=== PATIENT | female | born 1990 | race Two or more races ===

== ENCOUNTER 2024-04-22 15:40 | Emergency (ER) | payer MEDICAID, OTHER ==
[~2024-04-22] VITALS: Ht 175.3 cm; Wt 65.9 kg
[2024-04-22 19:30] VITALS: PULSE 82; RESP 18; O2SAT 93
[2024-04-22 19:45] VITALS: BP 95/53; PULSE 94; RESP 16; O2SAT 99
== END 2024-04-22 19:46 | disposition home or self-care (01) ==
LOC: ER 15:40 → EDBD 15:40 → ER 19:46
DX: T67.5XXA Heat exhaustion, unspecified, initial encounter (principal); J45.909 Unspecified asthma, uncomplicated; I10 Essential (primary) hypertension; Z95.0 Presence of cardiac pacemaker; Z86.73 Personal history of transient ischemic attack (TIA), and cerebral infarction without residual deficits; Z87.891 Personal history of nicotine dependence; X30.XXXA Exposure to excessive natural heat, initial encounter; Y93.89 Activity, other specified; Y92.099 Unspecified place in other non-institutional residence as the place of occurrence of the external cause; Y99.8 Other external cause status
CPT/HCPCS: 93005

== ENCOUNTER 2024-11-12 12:22 | Emergency (ER) | payer MEDICAID ==
[~2024-11-12] VITALS: Ht 175.3 cm; Wt 94.2 kg
[2024-11-12 13:00] VITALS: BP 115/68; PULSE 89; RESP 18; TEMP 97.8; O2SAT 97
[2024-11-12] MEDS ORDERED: AMOX875T3 PO (13:03)
[2024-11-12] MEDS ORDERED: PRED20TA2 PO (13:03)
--- NOTE | 2024-11-12 13:05 | ED.PDOC ---
Eye-HPI HPI Comments A 34 YEAR OLD FEMALE PRESENTS TO THE ED WITH COMPLAINT OF SINUS PRESSURE AND CONGESTION. PATIENT STATES SHE HAS BEEN EXPERIENCING SINUS CONGESTION AND PRESSURE FOR THE PAST 2 DAYS. PATIENT DENIES FEVER, CHILLS, SHORTNESS OF BREATH, CHEST PAIN, ABDOMINAL PAIN, NAUSEA, VOMITING, HEADACHE, OR OTHER COMPLAINTS. NO OTHER SYMPTOMS OR MODIFYING FACTORS AT THIS TIME. PATIENT IS ALERT, ORIENTED X 4, AND HAS STEADY GAIT. Chief Complaint: Flu like Time Seen by MD: 12:43 Primary Care Provider: BHARATH Reviewed Notes: Nurses Notes, Medications, Allergies Allergies: Coded Allergies: NO KNOWN ALLERGIES (Unverified , 04/22/24) Home Meds Active Scripts Prednisone (Prednisone) 20 Mg Tab, 60 MG PO DAILY, #18 MG Prov:BERNARDO DANGELO 11/12/24 Amoxicillin Trihydrate (Amoxicillin) 875 Mg Tab, 1 TAB PO BID, #20 TAB Prov:BERNARDO DANGELO 11/12/24 Information Source: Patient Mode of Arrival: Wheelchair Timing: Days Duration: Since onset, Days Prehospital treatment: None Lids: Normal Conjunctiva: Normal Cornea: Normal Pupils: Normal EOM: Normal Fundus: Normal Slit lamp exam: Normal Anterior chamber: Normal Mouth: Normal ENT Ear Exam: Normal Nose: Normal Sinuses: Tender, Maxillary Oropharynx: Normal Onset: Spontaneous Throat Exposed to: None History of: None Last Tetanus: Unknown Modifying factors: Nothing Associated signs and symptoms: Nasal Symptoms Past Medical History PAST MEDICAL HISTORY: Asthma, CVA, HTN Surgical History: Pacemaker POWER CRANE OPERATOR History: No Pertinent POWER CRANE OPERATOR History Family History Family History: Reviewed,noncontributory to illness Social History Smoker: Quit Less Than 1 Year Alcohol: Denies ETOH Use Drugs: Denies Drug Use Lives In: Home Constitutional: denies: chills, diaphoresis, fatigue, fever, malaise, sweats, weakness, others EENTM: reports: nose congestion, others (SINUS PRESSURE); denies: blurred vision, double vision, ear bleeding, ear discharge, ear drainage, ear pain, ear ringing, eye pain, eye redness, hearing loss, mouth pain, mouth swelling, nasal discharge, nose bleeding, nose pain, photophobia, tearing, throat pain, throat swelling, voice changes Respiratory: denies: cough, hemoptysis, orthopnea, SOB at rest, shortness of breath, SOB with excertion, stridor, wheezing, others Cardiovascular: denies: chest pain, dizzy spells, diaphoresis, Dyspnea on exertion, edema, irregular heart beat, left arm pain, lightheadedness, palpitations, PND, syncope, others Gastrointestinal: denies: abdomen distended, abdominal pain, blood streaked bowels, constipated, diarrhea, dysphagia, difficulty swallowing, hematemesis, melena, nausea, poor appetite, poor fluid intake, rectal bleeding, rectal pain, vomiting, others Genitourinary: denies: abnormal vagina bleeding, burning, dyspareunia, dysuria, flank pain, frequency, hematuria, incontinence, pain, , vagina discharge, urgency, others Neurological: denies: dizziness, fainting, headache, left sided numbness, left sided weakness, numbness, paresthesia, pre-existing deficit, right sided numbness, right sided weakness, seizure, speech problems, tingling, tremors, weakness, others Musculoskeletal: denies: back pain, gout, joint pain, joint swelling, muscle pain, muscle stiffness, neck pain, others Integumetry: denies: bruises, change in color, change in hair/nails, dryness, laceration, lesions, lumps, rash, wounds, others Allergic/Immunocompromised: denies: Difficulty Healing, Frequent Infections, Hives, Itching, others Hematologic/Lymphatic: denies: anemia, blood clots, easy bleeding, easy bruising, swollen glands, others Endocrine: denies: excessive hunger, excessive sweating, excessive thirst, excessive urination, flushing, intolerance to cold, intolerance to heat, unexplained weight gain, unexplained weight loss, others Psychiatric: denies: anxiety, bipolar disorder, depression, hopeless, panic disorder, schizophrenia, sleepless, suicidal, others All Other Systems: Reviewed and Negative Physical Exam General Appearance: No Apparent Distress, Normal HEENT: Normal ENT Inspection, PERRL/EOMI, Pharynx Normal, Sinuses (TENDERNESS MAXILLARY SINUSES WITH POST NASAL DRIP. ), TMs Normal Neck: Full Range of Motion, Non-Tender, Normal, Normal Inspection Respiratory: Chest Non-Tender, Lungs Clear, No Accessory Muscle Use, No Respiratory Distress, Normal Breath Sounds Cardiovascular: No Edema, No JVD, No Murmur, No Gallop, Normal Peripheral Pulses, Regular Rate/Rhythm Breast Exam: Deferred Gastrointestinal: No Organomegaly, Non Tender, No Pulsatile Mass, Normal Bowel Sounds, Soft Genitalia: Deferred Pelvic: Deferred Rectal: Deferred Extremities: No calf tenderness, Normal capillary refill, Normal inspection, Normal range of motion, Non-tender, No pedal edema Musculoskeletal : Apperance: Normal Neurologic: Alert, computer artist II-XII nml as Tested, No Motor Deficits, Normal Affect, Normal Mood, No Sensory Deficits Cerebellar Function: Normal Reflexes: Normal Skin: Dry, Normal Color, Warm Peripheral Pulses: 2+ carotid (R), 2+ carotid (L) Lymphatic: No Adenopathy Was a procedure done? Was a procedure done?: No EENT DIFF Eye: N/A Ear: Otitis Externa, Otitis Media, Pharyngitis, Sinusitis Nose: N/A Mouth: N/A Sore Throat: N/A X-Ray, Labs, Meds, VS Vital Signs Date Time Temp Pulse Resp B/P (MAP) Pulse Ox O2 Delivery O2 Flow Rate FiO2 11/12/24 13:00 89 18 97 Room Air 11/12/24 13:00 97.8 89 18 115/68 (84) 97 97.8 11/12/24 12:35 97.8 89 18 115/68 (84) 97 X-Ray, Labs, Meds, VS Comment EXTERNAL MEDICAL RECORDS REVIEWED: [NONE] INDEPENDENT HISTORIANS: [NONE] SOCIAL DETERMINANTS OF HEALTH: [NONE] LABS ORDERED: NONE REVIEWED AND INTERPRETED RESULTS: NONE IMAGING ORDERED: NONE TREATMENTS ORDERED: NONE PROCEDURES PERFORMED: NONE CRITICAL CARE TIME: NONE I HAVE DISCUSSED THE PATIENT WITH THE ATTENDING PHYSICIAN DR. PALACIOS AND HE AGREES WITH THE PATIENT'S PLAN OF CARE AND DISPOSITION. BASED ON HISTORY OF PRESENT ILLNESS, AND PHYSICAL EXAM, PATIENT WILL BE DI SCHARGED HOME. SHARED DECISION MAKING: PATIENT INSTRUCTED TO FOLLOW UP WITH PRIMARY CARE PROVIDER IN 1-2 DAYS FOR RE-EVALUATION OF SYMPTOMS. PATIENT VERBALIZES UNDERSTANDING TO RETURN TO ED FOR NEW OR WORSENING SYMPTOMS OR IF FOLLOW UP WITH PCP CANNOT BE OBTAINED. PATIENT FEELS COMFORTABLE GOING HOME AT THIS TIME. ALL QUESTIONS ADDRESSED AT TIME OF DISCHARGE. Time of 1ST Reevaluation: 13:13 Reevaluation 1ST: Improved Patient Education/Counseling: Diagnosis, Treatment, Need For Follow Up Family Education/Counseling: Diagnosis, Treatment, Need For Follow Up Medical Screening: No EMC Exist At This Time Departure 1 Departure Time of Disposition: 13:15 Impression: Primary Impression: Acute sinusitis Qualified Codes: J01.00 - Acute maxillary sinusitis, unspecified Disposition: HOME / SELF CARE / HOMELESS Condition: Stable Additional Instructions: FOLLOW-UP WITH PCP IN 1 TO 2 DAYS. TAKE MEDICATIONS PRESCRIBED. RETURN TO ED FOR ANY NEW OR WORSENING SYMPTOMS. e-Prescriptions Prednisone (Prednisone) 20 Mg Tab 60 MG PO DAILY, #18 MG Prov: BERNARDO DANGELO 11/12/24 Amoxicillin Trihydrate (Amoxicillin) 875 Mg Tab 1 TAB PO BID, #20 TAB Prov: BERNARDO DANGELO 11/12/24 Discharged With: Self Critical Care Note Critical Care Time?: No Stability Stability form required: No I personally scribed for BERNARDO DANGELO ([email or web address]) on 11/12/24 at 13:05. Electro nically submitted by Robert Awan ([email or web address]). BERNARDO DANGELO Nov 12, 2024 13:05
== END 2024-11-12 13:07 | disposition home or self-care (01) ==
LOC: ER 12:22
DX: J01.90 Acute sinusitis, unspecified (principal); I10 Essential (primary) hypertension; J45.909 Unspecified asthma, uncomplicated; Z95.0 Presence of cardiac pacemaker; Z79.899 Other long term (current) drug therapy; Z98.890 Other specified postprocedural states

== ENCOUNTER 2024-11-16 21:59 | Emergency (ER) | payer MEDICAID ==
[~2024-11-16] VITALS: Ht 175.3 cm; Wt 94.0 kg
[~2024-11-16 21:59] MED LIST: AMOX875T3 PO; PRED20TA2 PO
[2024-11-16] MEDS ORDERED: IBUP-1455 PO (23:05)
[2024-11-16] MEDS ORDERED: CEPH500C PO (23:05)
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
[2024-11-16 23:19] VITALS: BP 131/80; PULSE 64; RESP 18; TEMP 98; O2SAT 98
[2024-11-16] MEDS: methylPREDNISolone SOD SUCC 125 MG/2 ML VL IM ONE (23:20)
== END 2024-11-16 23:54 | disposition home or self-care (01) ==
LOC: ER 21:59
DX: T81.89XA Other complications of procedures, not elsewhere classified, initial encounter (principal); G89.29 Other chronic pain; M79.605 Pain in left leg; I10 Essential (primary) hypertension; J45.909 Unspecified asthma, uncomplicated; Z86.73 Personal history of transient ischemic attack (TIA), and cerebral infarction without residual deficits; Z95.0 Presence of cardiac pacemaker; Z87.891 Personal history of nicotine dependence; Z79.52 Long term (current) use of systemic steroids; Z79.899 Other long term (current) drug therapy; Y92.89 Other specified places as the place of occurrence of the external cause
CPT/HCPCS: 96372; 99283; J2919

== ENCOUNTER 2025-01-19 15:15 | Inpatient (IN) | payer MEDICAID ==
[~2025-01-19] VITALS: Ht 160 cm; Wt 90.0 kg
[~2025-01-19 15:15] MED LIST changes: +CEPH500C PO; +IBUP-1455 PO
--- NOTE | 2025-01-19 15:31 | ED.PDOC ---
History of Present Illness HPI Comments HPI: Past Medical History: ASTHMA, CVA, HTN, EPILEPSY, HLD , HIV, homeless Past Surgical History: PACEMAKER Social History: FORMER SMOKER, DENIES ALCOHOL/DRUGS Allergies: NKDA HPI: Poor Historian. 34-year-old female brought in by ambulance from home. The friend who has been posting this patient recently called 911 because the patient has decreased appetite in the last two days and have some generalized weakness. No other comp laints. Patient had one episode of brown diarrhea this morning which has resolved. Patient denies any other symptoms. Patient does not take any medicine. Pre-hospital course vital signs per EMS were stable. Patient denies any history of liver disease however she has bilateral icterus REVIEW OF SYSTEMS: CONSTITUTIONAL: Denies acute: fever, diaphoresis, chills, HEAD: Denies acute: headache, photophobia Eyes: Denies acute: Double vision, vision loss, eye pain, eye discharge. EARS: Denies acute: tinnitus, hearing loss, ear discharge, ear pain, THROAT: Denies acute: sore throat, swelling, difficulty swallowing , pain with swallowing, change in voice. NECK: Denies acute: neck pain, neck swelling, stiff neck. HEART: Denies acute : chest pain, palpitations, LUNGS: Denies acute: SOB, wheezing, cough, hemoptysis ABDOMEN: Denies acute: abdominal pain, Nausea, Vomiting, melena , hematemesis, hematochezia SKIN: Denies acute: rash, redness, lesions, itchiness. EXTREMITIES: Denies acute: calf pain, numbness, tingling, weakness, denies pain in extremity. Denies acute: Low back pain. Neuro: Denies acute: focal neurological deficit, motor or sensory focal neurological deficit, tremors, seizure like activity, confusion, dizziness, change in mental status, loss of bowel or bladder function, cauda equina like symptoms. : Denies acute: dysuria, hematuria, flank pain, increase in urinary frequency. PSYCH: Denies acute: hallucination, suicidal ideation, homicidal ideation. FEMALE: Denies acute: abnormal vaginal bleeding, foul odor, unusual discharge. PHYSICAL EXAM: General: no acute distress, awake and alert. Head: normocephalic, atraumatic. Neck: supple, trachea is midline, no swelling. Throat: Normal phonation. Eyes:, no erythema, no purulent discharge, no proptosis, no icterus. Heart: regular rate, regular rhythm, no significant murmur appreciated. Lungs: no apparent respiratory distress, Able to speak in full sentences. No wheezing, no rhonchi, no crackles. No stridors Clear to auscultation bilaterally. Abdomen: non tender to palpation, slightly distended, soft, no guarding, no rebound, + bowel sounds. Neuro: Awake, Alert, oriented to name, self, situation, follows commands GCS=15. Speech is normal. Skin: no petechia, no purpura, no cyanosis, slightly-pale, bilateral icterus Lower extremities: --trace bilateral - Pitting edema no deformity, no focal swelling, no calf TTP. Makes eye contact. moves all four extremities. History of CVA with right-sided deficit however patient at baseline able to ambulate independently. Face: no apparent facial droop. ED COURSE: Chief Complaint: General Weakness Time Seen by MD: 15:30 Primary Care Provider: NONE Reviewed Notes: Nurses Notes, Medications, Allergies Allergies: Coded Allergies: NO KNOWN ALLERGIES (Unverified , 04/22/24) Home Meds Active Scripts Ibuprofen Micronized (Ibuprofen) 800 Mg Tab, 800 MG PO TID, #40 TAB Prov:DOTTY TRANP 11/16/24 Cephalexin Monohydrate (Cephalexin) 500 Mg Cap, 1 CAP PO QID, #40 CAP Prov:DOTTY TRAN 11/16/24 Prednisone (Prednisone) 20 Mg Tab, 60 MG PO DAILY, #18 MG Prov:BERNARDO DANGELO 11/12/24 Amoxicillin Trihydrate (Amoxicillin) 875 Mg Tab, 1 TAB PO BID, #20 TAB Prov:BERNARDO DANGELO 11/12/24 Information Source: Patient, Emergency Med Personnel Mode of Arrival: EMS Severity: Moderate Past Medical History PAST MEDICAL HISTORY: Asthma, CVA, HTN Surgical History: Pacemaker STATISTICAL CLERK ADVERTISING History: No Pertinent STATISTICAL CLERK ADVERTISING History Family History Family History: Reviewed,noncontributory to illness Social History Smoker: Quit Less Than 1 Year Alcohol: Denies ETOH Use Drugs: Denies Drug Use Lives In: Home Was a procedure done? 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 Tegaderm was placed the area was cleansed well prior to placement of the Biopatch. Bleeding minimal. Ultrasound was used. Local anesthesia was used lidocaine that comes with the kit. Patient tolerated the procedure well. Complications none apparent. I was the supervising attending physician for the placement of this central line. Please see the resident's notes. Differential Dx Considerations may include: Includes but not limited to thyroid disease, encephalopathy, electrolyte abnormality, sepsis, infection, intracranial pathology, drug adverse effects, arrhythmia, kidney insufficiency, ACS, CVA, malignancy, anemia X-Ray, Labs, Meds, VS Vital Signs Date Time Temp Pulse Resp B/P (MAP) Pulse Ox O2 Delivery O2 Flow Rate FiO2 01/20/25 01:30 70 18 96/58 (71) 96 01/20/25 00:00 64 01/19/25 23:45 103/67 01/19/25 23:32 72 16 105/58 (74) 96 01/19/25 22:45 112/61 01/19/25 21:45 107/88 01/19/25 21:30 70 16 104/72 (83) 96 01/19/25 20:45 113/69 01/19/25 20:00 75 01/19/25 19:45 115/65 01/19/25 19:40 100/64 01/19/25 19:35 86/40 01/19/25 19:30 76 18 99 Room Air* 0 21 01/19/25 19:30 67 16 67/41 (50) 96 01/19/25 19:30 96/54 01/19/25 19:26 70 01/19/25 19:25 74/49 01/19/25 19:20 98/55 3/10/25 19:15 73 16 64/39 (47) 96 01/19/25 19:15 67/40 01/19/25 19:10 67/45 01/19/25 19:05 72/39 01/19/25 19:00 71/58 01/19/25 19:00 67 16 67/41 (50) 96 01/19/25 18:45 71 16 68/40 (49) 96 01/19/25 18:15 71 16 74/40 (51) 96 01/19/25 17:48 98.5 67 16 72/36 (48) 96 98.5 01/19/25 17:48 67 16 96 Room Air* 0 21 01/19/25 17:16 97.9 20 18 89/53 (65) 98 97.9 01/19/25 15:46 18 Room Air* 0 21 01/19/25 15:21 97.7 71 16 112/76 (88) 98 Lab Test 01/19/25 23:15 01/19/25 20:22 01/19/25 18:21 01/19/25 15:53 Range/Units Urine Color Dark-yellow Yellow Urine Clarity Turbid H Clear Urine pH 6.0 5.0-9.0 Urine Specific [place] 1.017 1.001-1.035 Urine Protein 1+ H Negative Urine Ketones Negative Negative Urine Blood 2+ H Negative /uL Urine Nitrite Negative Negative Urine Bilirubin 2+ H Negative Urine Urobilinogen Normal Negative mg/dL Urine Leukocyte Esterase Negative Negative /uL Urine RBC 97 0 - 4 /hpf Urine Microscopic WBC 5 0-5 /HPF Urine Squamous Epithelial Cells Few <5 /hpf Urine Calcium Oxalate Crystals Few None Seen Urine Bacteria Few H None Seen /hpf Urine Hyaline Casts Few 0 - 2 /lpf Urine Mucus Few None Seen Urine Glucose Normal Normal mg/dL Urine Test Negative Negative Urine Opiates Screen Neg NEGATIVE Urine Fentanyl Screen Neg NEGATIVE Urine Barbiturates Screen Neg NEGATIVE Urine Phencyclidine Screen Neg NEGATIVE Urine Amphetamines Screen Neg NEGATIVE Urine Benzodiazepines Screen Neg NEGATIVE Urine Cocaine Screen Neg NEGATIVE Urine Cannabinoids Screen Neg NEGATIVE Sodium Level 146 H 146 H 136-145 mmol/L Potassium Level 3.1 L 3.5 3.5-5.1 mmol/L Chloride Level 111 H 111 H 98-107 mmol/L Carbon Dioxide Level 23 23 20-31 mmol/L Anion Gap 12 12 5-15 Blood Urea Nitrogen 17 19 9-23 mg/dL Creatinine 1.57 H 1.42 H 0.550-1.02 mg/dL Glomerular Filtration Rate Calc 44 50 >90 mL/min BUN/Creatinine Ratio 10.8 13.4 10.0-20.0 Serum Glucose 123 H 85 74-106 mg/dL Calcium Level 10.5 H 10.5 H 8.7-10.4 mg/dL Total Bilirubin 10.7 H 12.2 H 0.2-1.0 mg/dL Aspartate Amino Transferase (AST) > 1000 H > 1000 H 13-40 U/L Alanine Aminotransferase (ALT) 832 H 895 H 7-40 U/L Alkaline Phosphatase > 2300 H > 2300 H 46-116 U/L Troponin I High Sensitivity 26 39 *H 38 *H </=34 ng/L Total Protein 7.6 7.6 5.7-8.2 g/dL Albumin 3.2 3.2 3.2-4.8 g/dL White Blood Count 3.1 L 4.4-10.8 10^3/uL Red Blood Count 4.46 4.0-5.20 10^6/uL Hemoglobin 13.1 12.2-16.2 g/dL Hematocrit 39.8 36.0-46.0 % Mean Corpuscular Volume 89.3 80.0-100.0 fL Mean Corpuscular Hemoglobin 29.4 28.0-32.0 pg Mean Corpuscular Hemoglobin Concent 33.0 32.0-36.0 g/dL Red Cell Distribution Width 18.9 H 11.8-14.3 % Platelet Count 63 L 140-450 10^3/uL Mean Platelet Volume 8.7 6.9-10.8 fL Neutrophils (%) (Auto) 37.0-80.0 % Lymphocytes (%) (Auto) 10.0-50.0 % Monocytes (%) (Auto) 0.0-12.0 % Basophils (%) (Auto) 0.0-2.0 % Neutrophils # (Auto) 1.6-8.6 10 ^3/uL Lymphocytes # (Auto) 0.4-5.4 10 ^3/uL Monocytes # (Auto) 0-1.3 10 ^3/uL Differential Total Cells Counted 100.0 100 Neutrophils % (Manual) 57 37.0-80.0 Band Neutrophils % (Manual) 7 Lymphocytes % (Manual) 30 10.0-50.0 Monocytes % (Manual) 1 0-12 Eosinophils % (Manual) 5 0-7 Basophils % (Manual) 0 0.0-2.0 Metamyelocytes % (manual) 0 Myelocytes % (Manual) 0 Promyelocytes % (Manual) 0 Blast Cells % (Manual) 0 Nucleated Red Blood Cells % Reactive Lymphocytes 0 Platelet Estimate Decreased Anisocytosis (manual) Slight Lactic Acid Level 1.2 0.4-2.0 mmol/L Magnesium Level 2.0 1.6-2.6 mg/dL Ammonia 40 H 11-32 umol/L B-Type Natriuretic Peptide 223.92 0-100 pg/mL Lipase 36 12-53 U/L Current Medications Medications (Trade) Dose Ordered Sig/Dorota Route Start Time Stop Time Status Last Admin Ceftriaxone Sodium 50 ml @ 100 mls/hr ONCE ONCE IV 01/19/25 17:15 01/19/25 17:44 DC 01/19/25 17:57 Lactulose 60 ml ONCE ONCE PO 01/19/25 17:15 01/19/25 17:16 DC 01/19/25 17:56 Sodium Chloride 500 ml @ 500 mls/hr Q1H ONCE IV 01/19/25 17:30 01/19/25 18:29 DC 01/19/25 17:56 Norepinephrine Bitartrate 250 ml @ 3.75 mls/hr Q24H IV 01/19/25 19:00 01/19/25 19:00 Ondansetron HCl (Zofran) 4 mg ONCE ONCE IV 01/19/25 21:45 01/19/25 21:49 DC 01/19/25 22:00 Sodium Chloride 1,000 ml @ 1,000 mls/hr Q1H ONCE IV 01/20/25 00:45 01/20/25 01:44 DC 01/20/25 01:[address] [address] Ph: [phone] DIAGNOSTIC IMAGING Diagnostic Imaging Report : [id number] Signed PATIENT: AMELIE SHARPE ACCT: [id number] UNIT: [id number] : 1990 LOC: ER ROOM / BED: / AGE / SEX: 34 / F ADM STATUS: REG ER SERVICE 54 ORDERING PHYSICIAN: RYAN SÁNHCEZ DO PROCEDURE(s): HWOCT - HEAD WITHOUT CONTRAST REASON: ALOC ORDER NUMBER(s): [id number], ACCESSION NUMBER(s): [id number] CT HEAD WITHOUT CONTRAST INDICATION: ALOC COMPARISON: None TECHNIQUE: CT of the head without intravenous contrast. RADIATION DOSE: CTDIvol: 52.21 mGy, DLP: 1506.45 mGy*cm FINDINGS: There is no evidence of intracranial hemorrhage, acute infarct, extra-axial collection, mass effect, midline shift, herniation or hydrocephalus. There is an area of gliosis/old infarct in the right insula and frontal lobe. There is moderate ventricular enlargement related to cerebral volume loss/ex-vacuo dilatation. The right supraclinoid ICA and right MCA appear dysplastic. Visualized paranasal sinuses and mastoid air cells are clear. Soft tissues and osseous structures are unremarkable. IMPRESSION: No acute intracranial abnormality identified. Gliosis/old infarct in right insula and frontal lobe. ATED BY: NICKO FERNANDEZ MD DICTATED DATE/TIME: 01/19/252117 SIGNED BY: NICKO FERNANDEZ MD SIGNED DATE/TIME: 01/19/252117 CC: [place] [address] Ph: [phone] DIAGNOSTIC IMAGING Diagnostic Imaging Report : [id number] Signed PATIENT: AMELIE SHARPE ACCT: [id number] UNIT: [id number] : 1990 LOC: ER ROOM / BED: / AGE / SEX: 34 / F ADM STATUS: REG ER SERVICE 54 ORDERING PHYSICIAN: RYAN SÁNCHEZ DO PROCEDURE(s): CXRP - CHEST PORTABLE REASON: gen weak, diarrhea, Jaundice ORDER NUMBER(s): [id number], ACCESSION NUMBER(s): [id number] CHEST RADIOGRAPH Indication: gen weak, diarrhea, Jaundice Technique: Single frontal view of the chest was obtained COMPARISON: None FINDINGS: Lines and Tubes: None Lungs: Clear Pleura: No effusion. No pneumothorax. Cardiomediastinal contours: Unremarkable Bones: Unremarkable IMPRESSION: No abnormality demonstrated. ATED BY: NICKO FERNANDEZ MD DICTATED DATE/TIME: 01/19/252316 SIGNED BY: NICKO FERNANDEZ MD SIGNED DATE/TIME: 01/19/252316 CC: [place] [address] Ph: [phone] DIAGNOSTIC IMAGING Diagnostic Imaging Report : [id number] Signed PATIENT: AMELIE SHARPE ACCT: [id number] UNIT: [id number] : 1990 LOC: ER ROOM / BED: / AGE / SEX: 34 / F ADM STATUS: REG ER SERVICE 54 ORDERING PHYSICIAN: RYAN SÁNCHEZ DO PROCEDURE(s): ABPL - CT AB PEL WO CON-NO ORAL OR IV REASON: jaundice, elevated LFT, weak ORDER NUMBER(s): [id number], ACCESSION NUMBER(s): [id number] CT SCAN ABDOMEN AND PELVIS WITHOUT CONTRAST CLINICAL HISTORY: jaundice, elevated LFT, weak TECHNIQUE: Helical axial images are obtained from the lung bases through the pelvis without oral contrast. No intravenous contrast was administered. Coronal and sagittal reformatted images were generated from thin section rec onstructions. One or more of the following radiation dose reduction techniques were used for this examination: automated exposure control, adjustment of the mA and/or kV according to patient size, use of iterative reconstruction technique. COMPARISON: None FINDINGS: LOWER THORAX: Small peripheral airspace opacities in the superior aspects of the posterior lower lobes. Scattered atelectasis/ scarring. ABDOMEN AND PELVIS: Evaluation of visceral and vascular structures is limited due to lack of contrast administration. As visualized, the unenhanced liver, spleen, pancreas and adrenals appear grossly unremarkable. The gallbladder is not clearly delineated and may be contracted or surgically absent. No appreciable biliary ductal dilatation. No hydroureteronephrosis or sizable, obstructing urinary tract calculi identified. Punctate left interpolar nephrolithiasis. No evidence of abdominal aortic aneurysm. Small hiatal hernia with distal esophageal thickening. No evidence of bowel obstruction. Visualized portions of the appendix appear normal caliber. No free intraperitoneal air or fluid identified. No sizable bladder calculus. Borderline enlarged bilateral inguinal lymph nodes. No destructive osseous lesions identified. Degenerative changes of the lower lumbar spine. IMPRESSION: No discrete hepatic lesions or biliary ductal dilatation appreciated on this noncontrast exam. Gallbladder is not clearly delineated and may be contracted or surgically absent. Ultrasound may be obtained to further evaluate. Small hiatal hernia with thickening of the distal esophagus. Small, patchy airspace opacities in the superior aspects of the imaged bilateral lower lobes. Correlate to exclude atypical infection. ATED BY: STEVE GELLER MD DICTATED DATE/TIME: 01/19/252148 SIGNED BY: STEVE GELLER MD SIGNED DATE/TIME: 01/19/252148 CC: Time of 1ST Reevaluation: 15:00 Reevaluation 1ST: Unchanged Time of 2ND Reevaluation: 19:47 (The admitting team came and evaluated the patient. The nurse practitioner Jack said that he spoke with Gastroenterology. He said that the GI doctor recommends transfer the patient to higher level of care. Transfer procedure was initiated.) Patient Education/Counseling: Diagnosis, Treatment Family Education/Counseling: No Family Present Assigned to Dr. dr. Dominguez. awaiting transfer to higher level of care. Comments Patient presented with the above HPI.---generalized weak--workup was initiated. patient was found with the above mentioned diagnosis. the following medications were ordered: please refer to order lists of meds and tests obtained by myself Dr. Sánchez. Patient ED course and VS have been stabilized. Patient has been reassessed in the ED and remained in a stable condition. Pertinent incidental findings were discussed with the patient and/or family. Patient/family voices understanding and is agreeable with plan. Patient has been observed in the ED adequate length of time to insure improvement/stability. Escalation of care considered: Consideration of escalation to observation or admission Patient was ADMITTED to the medicine team for further evaluation and treatment of their presentation. However the medicine team consulted with the GI. GI requested that we transfer the patient to higher level of care for acute hepatic failure. Sepsis workup was initiated. Right femoral central line was placed. Patient is on Levophed for hypotension. Patient was given fluid resuscitations ant ibiotics. We have tried multiple facilities to transfer the patient to higher level of care has but they are all at capacity. We will continue to reach out for other higher level of care facilities. Saxena catheter was placed. All the reports of any imaging studies that were ordered by myself were reviewed by myself. The care of this patient was signed out to my colleague Dr. Dominguez. Still awaiting transfer to higher level of care. I do not think the patient will meet criteria for liver transplant given her multiple comorbidities and HIV and noncompliance with all her medications. Departure 1 Departure Time of Disposition: 17:08 Impression: Primary Impression: Liver failure Additional Impressions: Elevated LFTs Thrombocytopenia Hyperbilirubinemia Hyperammonemia Generalized weakness Hypotension Pneumonia Sepsis Disposition: 02 SHORT TERM HOSPITAL Admit to: ICU Condition: Critical Discharged With: Self Critical Care Note Critical Care Time?: Yes (90 min-critical care time only) I personally scribed for RYAN SÁNCHEZ DO ([email or web address]) on 01/19/25 at 15:31. Electronically submitted by Maldonado Arredondo ([email or web address]). I personally scribed for RYAN SÁNCHEZ DO ([email or web address]) on 01/19/25 at 15:40. Electronically submitted by Maldonado Arredondo ([email or web address]). I personally scribed for RYAN SÁNCHEZ DO ([email or web address]) on 01/20/25 at 01:02. Electronically submitted by Charlie Cunningham ([email or web address]). RYAN SÁNCHEZ DO Jan 19, 2025 15:31
[2025-01-19 15:46] VITALS: RESP 18
[2025-01-19 16:36] LABS: Platelet Count (auto) 63 10^3/uL (140-450)
[2025-01-19 16:38] LABS: Hematocrit 39.8 % (36.0-46.0); Hemoglobin 13.1 g/dL (12.2-16.2); Mean Corpuscular Hemoglobin 29.4 pg (28.0-32.0); Mean Corpuscular Volume 89.3 fL (80.0-100.0); Red Blood Cells 4.46 10^6/uL (4.0-5.20); Red Cell Distribution Width 18.9 % (11.8-14.3); White Blood Cell 3.1 10^3/uL (4.4-10.8)
[2025-01-19 16:41] LABS: Basophils % (manual) 0 (0.0-2.0); Blast Cells 0; Metamyelocytes % 0; Myelocytes % 0; Promyelocytes % 0; Reactive Lymphocytes 0
[2025-01-19 16:49] LABS: Albumin 3.2 g/dL (3.2-4.8); Anion Gap 12 (5-15); Blood Urea Nitrogen 19 mg/dL (9-23); Carbon Dioxide 23 mmol/L (20-31); Glucose 85 mg/dL (74-106); Lipase 36 U/L (12-53); Potassium 3.5 mmol/L (3.5-5.1)
[2025-01-19 17:03] LABS: Alkaline Phosphatase > 2300 U/L (46-116); BUN/Creatinine Ratio 13.4 (10.0-20.0); Chloride 111 mmol/L (98-107); Sodium 146 mmol/L (136-145)
[2025-01-19 17:04] LABS: Alanine Aminotransferase 895 U/L (7-40); Aspartate Aminotransferase > 1000 U/L (13-40); Bilirubin, Total 12.2 mg/dL (0.2-1.0); Calcium 10.5 mg/dL (8.7-10.4); Total Protein 7.6 g/dL (5.7-8.2)
[2025-01-19 17:14] LABS: Anisocytosis Slight; Band Neutrophils % (manual) 7; Eosinophils % (manual) 5 (0-7); Lymphocytes % (manual) 30 (10.0-50.0); Monocytes % (manual) 1 (0-12); Platelet Estimate Decreased
[2025-01-19 17:48] VITALS: PULSE 67; RESP 16; O2SAT 96
[2025-01-19] MEDS: SODIUM CHLORIDE 0.9% 500 ML IV ONE (17:56)
[2025-01-19] MEDS: LACTULOSE 20Gm/30ML SOLN PO ONE (17:56)
[2025-01-19] MEDS: cefTRIAXone 1GM/50ML D5W 50 ML IV ONE (17:57)
[2025-01-19] MEDS: NOREPINEPHRINE 8 MG/250ML KIT 250 ML IV SCH (19:00)
[2025-01-19 19:30] VITALS: PULSE 76; RESP 18; O2SAT 99
[2025-01-19 21:00] LABS: Albumin 3.2 g/dL (3.2-4.8); Anion Gap 12 (5-15); Blood Urea Nitrogen 17 mg/dL (9-23); Carbon Dioxide 23 mmol/L (20-31)
[2025-01-19 21:01] LABS: BUN/Creatinine Ratio 10.8 (10.0-20.0)
[2025-01-19 21:11] LABS: Alanine Aminotransferase 832 U/L (7-40); Alkaline Phosphatase > 2300 U/L (46-116); Aspartate Aminotransferase > 1000 U/L (13-40); Bilirubin, Total 10.7 mg/dL (0.2-1.0); Calcium 10.5 mg/dL (8.7-10.4); Chloride 111 mmol/L (98-107); Glucose 123 mg/dL (74-106); Potassium 3.1 mmol/L (3.5-5.1); Sodium 146 mmol/L (136-145)
[2025-01-19 21:12] LABS: Total Protein 7.6 g/dL (5.7-8.2)
--- NOTE | 2025-01-19 21:20 | DVH ---
CT HEAD WITHOUT CONTRAST INDICATION: ALOC COMPARISON: None TECHNIQUE: CT of the head without intravenous contrast. RADIATION DOSE: CTDIvol: 52.21 mGy, DLP: 1506.45 mGy*cm FINDINGS: There is no evidence of intracranial hemorrhage, acute infarct, extra-axial collection, mass effect, midline shift, herniation or hydrocephalus. There is an area of gliosis/old infarct in the right ins keily and frontal lobe. There is moderate ventricular enlargement related to cerebral volume loss/ex-va cuo dilatation. The right supraclinoid ICA and right MCA appear dysplastic. Visualized paranasal sinuses and mastoid air cells are clear. Soft tissues and osseous structures are unremarkable. IMPRESSION: No acute intracranial abnormality identified. Gliosis/old infarct in right insula and frontal lobe.
--- NOTE | 2025-01-19 21:51 | DVH ---
CT SCAN ABDOMEN AND PELVIS WITHOUT CONTRAST CLINICAL HISTORY: jaundice, elevated LFT, weak TECHNIQUE: Helical axial images are obtained from the lung bases through the pelvis without oral cont rast. No intravenous contrast was administered. Coronal and sagittal reformatted images were generate d from thin section reconstructions. One or more of the following radiation dose reduction techniques were used for this examination: automated exposure control, adjustment of the mA and/or kV according to patient size, use of iterative reconstruction technique. COMPARISON: None FINDINGS: LOWER THORAX: Small peripheral airspace opacities in the superior aspects of the posterior lower lobes. Scattered a telectasis/ scarring. ABDOMEN AND PELVIS: Evaluation of visceral and vascular structures is limited due to lack of contrast administration. As visualized, the unenhanced liver, spleen, pancreas and adrenals appear grossly unremarkable. The g allbladder is not clearly delineated and may be contracted or surgically absent. No appreciable bilia ry ductal dilatation. No hydroureteronephrosis or sizable, obstructing urinary tract calculi identified. Punctate left inte rpolar nephrolithiasis. No evidence of abdominal aortic aneurysm. Small hiatal hernia with distal esophageal thickening. No evidence of bowel obstruction. Visualized p ortions of the appendix appear normal caliber. No free intraperitoneal air or fluid identified. No sizable bladder calculus. Borderline enlarged bilateral inguinal lymph nodes. No destructive osseous lesions identified. Degenerative changes of the lower lumbar spine. IMPRESSION: No discrete hepatic lesions or biliary ductal dilatation appreciated on this noncontrast exam. Gallbl adder is not clearly delineated and may be contracted or surgically absent. Ultrasound may be obtaine d to further evaluate. Small hiatal hernia with thickening of the distal esophagus. Small, patchy airspace opacities in the superior aspects of the imaged bilateral lower lobes. Correla te to exclude atypical infection.
[2025-01-19] MEDS: ONDANSETRON HCL 4 MG/2 ML VIAL ONE (22:00)
[2025-01-19] MEDS: ONDANSETRON HCL 4 MG/2 ML VIAL IV ONE (22:00)
--- NOTE | 2025-01-19 23:19 | DVH ---
CHEST RADIOGRAPH Indication: gen weak, diarrhea, Jaundice Technique: Single frontal view of the chest was obtained COMPARISON: None FINDINGS: Lines and Tubes: None Lungs: Clear Pleura: No effusion. No pneumothorax. Cardiomediastinal contours: Unremarkable Bones: Unremarkable IMPRESSION: No abnormality demonstrated.
[2025-01-19 23:33] LABS: Urine Bacteria FEW /hpf (None Seen); Urine Blood 2+ /uL (Negative); Urine Clarity Turbid (Clear); Urine Color Dark-Yellow (Yellow); Urine Hyaline Cast FEW /lpf (0 - 2); Urine Mucus FEW (None Seen); Urine Protein, UAD 1+ (Negative); Urine Specific Gravity 1.017 (1.001-1.035); Urine Squamous Epithelial Cell FEW /hpf (<5); Urine Urobilinogen Normal (Negative); Urine WBC 5 /HPF (0-5)
--- NOTE | 2025-01-19 23:33 | DVHNC2 ---
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) Indication: Hypotension, Volume resuscitation Room prepared for procedure: Yes Lumite Injector performed hand hygien: Yes Maximal sterile barrier precau: Mask/Eye shield, Sterile gown, Cap, Sterlie gloves, Large sterlie drape Skin Preparation: Chlorhexidine gluconate Skin preparation completely dr: Yes Insertion site: Right, Femoral, Line secured Central line catheter type: [id number]-eni dialysis Number of lumens: 3 Central line exchanged over a: No Antiseptic ointment applied to: Yes Post Assessment: Proper placement Informed consent obtained: Yes Risks/benefits/alt described: Yes UTO Consent Seizure customer facilities supervisor Dr. Rome Date of Service: Jan 19, 2025 Billing Provider: RYAN ROME DO Common Visit Codes: PROCEDURE ONLY Procedure Codes: [id number] NON-TUNNEL CV CATH DERICK NAIR RESIDENT Jan 19, 2025 23:33
[2025-01-19 23:50] LABS: Amphetamine Screen, Urine Neg (NEGATIVE); Barbiturate Scree,Urine Neg (NEGATIVE); Benzodiazephine Screen, Urine Neg (NEGATIVE); Cannabinoid Screen, Urine Neg (NEGATIVE); Cocaine Screen, Urine Neg (NEGATIVE); Opiate Scree,Urine Neg (NEGATIVE); Phencyclidine Screen, Urine Neg (NEGATIVE)
[2025-01-20] VITALS (51 sets, daily range): BP systolic 82–145; BP diastolic 43–84; PULSE 66–96; RESP 10–35; TEMP 94.6–98.2; O2SAT 91–100
--- NOTE | 2025-01-20 00:27 | ECG ---
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
[2025-01-20] MEDS: SODIUM CHLORIDE 0.9% 1,000 ML IV ONE (01:00)
[2025-01-20 04:15] LABS: Albumin 3.2 g/dL (3.2-4.8); Anion Gap 11 (5-15); Blood Urea Nitrogen 18 mg/dL (9-23); Calcium 10.2 mg/dL (8.7-10.4); Carbon Dioxide 24 mmol/L (20-31)
[2025-01-20 04:23] LABS: INR 1.17 (0.9-1.15); Prothrombin Time 12.2 sec (9.3-11.8)
[2025-01-20 04:25] LABS: Alanine Aminotransferase 838 U/L (7-40); Bilirubin, Total 11.4 mg/dL (0.2-1.0); Chloride 112 mmol/L (98-107); Glucose 170 mg/dL (74-106); Sodium 147 mmol/L (136-145)
[2025-01-20 04:27] LABS: BUN/Creatinine Ratio 12.1 (10.0-20.0)
[2025-01-20 04:34] LABS: Total Protein 7.5 g/dL (5.7-8.2)
[2025-01-20 04:54] LABS: Aspartate Aminotransferase 2055 U/L (13-40)
[2025-01-20 05:21] LABS: Alkaline Phosphatase > 2300 U/L (46-116)
[2025-01-20] MEDS: POTASSIUM CHL 20 Meq TABLET PO ONE (05:54)
[2025-01-20] MEDS: OCTREOTIDE ACETATE 100 MCG/ML VL ONE (06:11)
[2025-01-20] MEDS: PANTOPRAZOLE 40 MG/10 ML VIAL INJ IV ONE (06:11)
[2025-01-20] MEDS: OCTREOTIDE ACETATE 100 MCG in SODIUM CHL 0.9% 50 ML IV ONE (06:15)
[2025-01-20] MEDS: OCTREOTIDE ACETATE 500 MCG in SODIUM CHL 0.9% 99 ML IV SCH (06:30)
[2025-01-20] MEDS: OCTREOTIDE ACETATE 500 MCG/ML VL ONE (06:33)
[2025-01-20] MEDS ORDERED: VASOPRESSIN 40 UNITS in D5W 5% 198 ML IV SCH (08:00)
[2025-01-20] MEDS: VASOPRESSIN 40 UNITS in D5W 5% 198 ML IV SCH (08:21)
[2025-01-20] MEDS: VANCOMYCIN 1GM/250ML KIT 200 ML IV ONE (08:54)
[2025-01-20 08:58] LABS: Hematocrit 38.3 % (36.0-46.0); Hemoglobin 12.5 g/dL (12.2-16.2); Mean Corpuscular Hemoglobin 29.7 pg (28.0-32.0); Mean Corpuscular Hgb Conc. 32.8 g/dL (32.0-36.0); Mean Corpuscular Volume 90.5 fL (80.0-100.0); Platelet Count (auto) 85 10^3/uL (140-450); Red Blood Cells 4.23 10^6/uL (4.0-5.20); Red Cell Distribution Width 18.5 % (11.8-14.3); White Blood Cell 10.6 10^3/uL (4.4-10.8)
[2025-01-20 09:02] LABS: Basophils % (manual) 0 (0.0-2.0); Blast Cells 0; Metamyelocytes % 0; Myelocytes % 0; Promyelocytes % 0; Reactive Lymphocytes 0
[2025-01-20 09:08] LABS: Alanine Aminotransferase 875 U/L (7-40); Albumin 3.3 g/dL (3.2-4.8); Anion Gap 8 (5-15); Aspartate Aminotransferase > 1000 U/L (13-40); Blood Urea Nitrogen 15 mg/dL (9-23); Carbon Dioxide 23 mmol/L (20-31); Chloride 114 mmol/L (98-107); Glucose 100 mg/dL (74-106); Potassium 3.6 mmol/L (3.5-5.1); Sodium 145 mmol/L (136-145)
[2025-01-20 09:09] LABS: Bilirubin, Total 11.3 mg/dL (0.2-1.0)
[2025-01-20 09:10] LABS: INR 1.16 (0.9-1.15); Partial Thromboplastin Time 35.8 SEC (24.5-34.5); Prothrombin Time 12.1 sec (9.3-11.8)
[2025-01-20 09:27] LABS: BUN/Creatinine Ratio 10.1 (10.0-20.0)
[2025-01-20 09:28] LABS: Alkaline Phosphatase > 2300 U/L (46-116); Total Protein 7.7 g/dL (5.7-8.2)
[2025-01-20 09:41] LABS: Band Neutrophils % (manual) 7; Eosinophils % (manual) 1 (0-7); Lymphocytes % (manual) 17 (10.0-50.0); Monocytes % (manual) 9 (0-12); Platelet Estimate Decreased
[2025-01-20] MEDS: CEFEPIME 2GM/50ML NS 50 ML IV ONE (09:52)
[2025-01-20 10:32] LABS: Salicylate < 3.0 mg/dL (-30)
[2025-01-20] MEDS ORDERED: BICT1TAB PO (11:53)
[2025-01-20] MEDS ORDERED: ATOR40TA52 PO (11:53)
[2025-01-20] MEDS ORDERED: MORPHINE SULFATE INJ 2 MG/ml SYRG IV PRN (12:00)
[2025-01-20] MEDS ORDERED: NITROGLYCERIN 0.4 MG SL TAB SL PRN (12:00)
[2025-01-20] MEDS ORDERED: VANCOMYCIN PER PHARMACY 0 MG IV SCH (12:15)
--- NOTE | 2025-01-20 12:34 | DVHHP2 ---
History of Present Illness Reason for Visit: Generalized Weakness History of Present Illness Cristina Rivera is a 34-year-old female with past medical history of CVA with residual left sided weakness, garbled speech, uses a walker to ambulate, hypertension, HIV, pacemaker, and asthma, who was brought to the ER for generalized weakness. Patient is homeless and has been staying with a friend for the last 6 weeks by the name of Farida, she is not sure what her last name is. Farida brought her to the hospital because she noticed she was becoming week, lethargic, not eating, or drinking well for the last couple of days. The patient can not remember why she came to the hospital. The patient is alert and oriented to self and where she is, but is unclear as to why she came in and thought it is December 2024. 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 In the ER patient was found to be in acute liver failure, hypotensive, hypothermic, hyperbilirubinemia, transaminitis, and septic Patient states she has been homeless for a while prior to staying with her friend. She states she got HIV from her Mom, and that her Mom when she was 4. She denies any drug use or ETOH in her past. States she did not know that she had any liver problems and has never been treated for her liver prior. States she has been taking her HIV medication for years. Patient st patel she has an uncle and 2 sisters. However, she does not have a phone and she does not know their phone numbers. her friend Farida that she was staying came to bedside. Farida states that she has never know her to be a drinker, states she use to use methamphetamines, but it has been almost a year since she has used as far as she knows. Cardiovascular: HTN Pulmonary: Asthma SERVICE AGENT: CVA (2021-with left sided weakness and slureed speech) Infectious disease: HIV Past Surgical History: Other (pacemaker) Smoke: Quit (2 months ago) ALCOHOL: none Drugs: Other (methamphetamines, quite about 1 year ago) Lives: Friends Domestic Violence: Neg Review of Systems Constitutional: Yes: Weakness, Malaise; No: Fever, Chills, Sweats, Other Eyes: No: Pain, Vision change, Conjunctivae inflammation, Eyelid inflammation, Other, Redness ENT: No: Ear pain, Ear discharge, Nose pain, Nose discharge, Nose congestion, Mouth pain, Mouth swelling, Throat pain, Throat swelling, Other Respiratory: No: Cough, Dry, Shortness of breath, SOB with excertion, Wheezing, Hemoptysis, Pleuritic Pain, Sputum, Wheezing, Other Cardiovascular: No: Chest Pain, Palpitations, Orthopnea, Paroxysmal Noc. Dyspnea, Edema, Lt Headedness, Other Gastrointestinal: Nausea, Vomiting, Abdominal Pain; No: Diarrhea, Constipation, Melena, Hematochezia, Other Genitourinary: No Dysuria, No Frequency, No Incontinence, No Hematuria, No Retention, No Other Musculoskeletal: No: other, neck pain, shoulder pain, arm pain, back pain, hand pain, leg pain, foot pain Skin: No: Rash, Lesions, Jaundice, Bruising, Other Neurological: No: Weakness, Numbness, Incoordination, Change in speech, Confusion, Seizures, Other Allergies: Coded Allergies: NO KNOWN ALLERGIES (Unverified , 04/22/24) Medications Current Medications Medications Dose Ordered Sig/Dorota Route Start Time Stop Time Status Last Admin Dose Admin Norepinephrine Bitartrate 250 ml @ 3.75 mls/hr Q24H IV 01/19/25 19:00 01/19/25 19:00 3.75 MLS/HR Octreotide Acetate 500 mcg/ Sodium Chloride 100 ml @ 10 mls/hr Q10H IV 01/20/25 06:00 01/20/25 06:30 10 MLS/HR Vasopressin 40 units/Dextrose 200 ml @ 60 mls/hr Q3H20M IV 01/20/25 07:45 01/20/25 11:18 60 MLS/HR Exam Vital Signs Vital Signs Date Time Temp Pulse Resp B/P (MAP) Pulse Ox O2 Delivery O2 Flow Rate FiO2 01/20/25 11:18 117/71 01/20/25 10:45 93.0 73 14 94 93.0 01/20/25 08:30 Room Air* 0 21 General Appearance: Alert, Cooperative, severe distress, Other (Oriented x3, has short term memory deficit, can not remeber why she is here) HEENT: Atraumatic, PERRLA, Other (Jaundice bilateral eyes) Respiratory: Normal air movement Cardiovascular: Regular rate, Normal S1, Normal S2 Abdominal: Normal bowel sounds, Other (distended, hepatospenomegaly, tender) Extremities: No clubbing, No cyanosis, Other (left sided weakness) Neuro: Other (slureed speech from previous CVA, difficulty ambulating at baseline from previous CVA uses a walker) Labs/Xrays Labs Test 01/20/25 08:06 01/20/25 08:01 01/19/25 23:15 01/19/25 15:53 Range/Units Blood Gas Specimen Type Venous Blood Gas Sample Site Other Blood Gas Patient Temperature 37.0 Arterial Blood Date Drawn [id number] Giorgio Test N/a Venous Blood pH 7.258 L 7.320-7.430 Venous Blood pCO2 at Patient Temp 59.1 *H 38.0-54.0 mmHg Venous Blood pO2 at Patient Temp 38.9 23.0-48.0 mmHg Venous Blood HCO3 25.8 22.0-29.0 mmol/L Venous Blood Base Excess -2.5 L -2.0-3.0 mmol/L Blood Gas Modality Room air FiO2 % 21.0 Blood Gas Comments Blood Gas Critical Value Read Back Yes Blood Gas Notified Whom Dr.larsen c Blood Gas Notified Time [id number] Blood Gas Notified By Perinatal Specialist eddie, jacques White Blood Count 10.6 # 4.4-10.8 10^3/uL Red Blood Count 4.23 4.0-5.20 10^6/uL Hemoglobin 12.5 12.2-16.2 g/dL Hematocrit 38.3 36.0-46.0 % Mean Corpuscular Volume 90.5 80.0-100.0 fL Mean Corpuscular Hemoglobin 29.7 28.0-32.0 pg Mean Corpuscular Hemoglobin Concent 32.8 32.0-36.0 g/dL Red Cell Distribution Width 18.5 H 11.8-14.3 % Platelet Count 85 L 140-450 10^3/uL Mean Platelet Volume 9.0 6.9-10.8 fL Neutrophils (%) (Auto) 37.0-80.0 % Lymphocytes (%) (Auto) 10.0-50.0 % Monocytes (%) (Auto) 0.0-12.0 % Basophils (%) (Auto) 0.0-2.0 % Neutrophils # (Auto) 1.6-8.6 10 ^3/uL Lymphocytes # (Auto) 0.4-5.4 10 ^3/uL Monocytes # (Auto) 0-1.3 10 ^3/uL Differential Total Cells Counted 100.0 100 Neutrophils % (Manual) 66 37.0-80.0 Band Neutrophils % (Manual) 7 Lymphocytes % (Manual) 17 10.0-50.0 Monocytes % (Manual) 9 0-12 Eosinophils % (Manual) 1 0-7 Basophils % (Manual) 0 0.0-2.0 Metamyelocytes % (manual) 0 Myelocytes % (Manual) 0 Promyelocytes % (Manual) 0 Blast Cells % (Manual) 0 Nucleated Red Blood Cells % Reactive Lymphocytes 0 Platelet Estimate Decreased Prothrombin Time 12.1 H 9.3-11.8 sec Prothrombin Time INR 1.16 H 0.9-1.15 Activated Partial Thromboplast Time 35.8 H 24.5-34.5 SEC Sodium Level 145 136-145 mmol/L Potassium Level 3.6 3.5-5.1 mmol/L Chloride Level 114 H 98-107 mmol/L Carbon Dioxide Level 23 20-31 mmol/L Anion Gap 8 5-15 Blood Urea Nitrogen 15 9-23 mg/dL Creatinine 1.49 H 0.550-1.02 mg/dL Glomerular Filtration Rate Calc 47 >90 mL/min BUN/Creatinine Ratio 10.1 10.0-20.0 Serum Glucose 100 74-106 mg/dL Calcium Level 10.0 8.7-10.4 mg/dL Total Bilirubin 11.3 H 0.2-1.0 mg/dL Aspartate Amino Transferase (AST) > 1000 H 13-40 U/L Alanine Aminotransferase (ALT) 875 H 7-40 U/L Alkaline Phosphatase > 2300 H 46-116 U/L Ammonia 14 11-32 umol/L Troponin I High Sensitivity 70 *H </=34 ng/L Total Protein 7.7 5.7-8.2 g/dL Albumin 3.3 3.2-4.8 g/dL Salicylates Level < 3.0 -30 mg/dL Acetaminophen Level 8.0 L 10.0-20.0 UG/ML Plasma/Serum Blood Alcohol < 3.0 <10 mg/dL Urine Color Dark-yellow Yellow Urine Clarity Turbid H Clear Urine pH 6.0 5.0-9.0 Urine Specific [place] 1.017 1.001-1.035 Urine Protein 1+ H Negative Urine Ketones Negative Negative Urine Blood 2+ H Negative /uL Urine Nitrite Negative Negative Urine Bilirubin 2+ H Negative Urine Urobilinogen Normal Negative mg/dL Urine Leukocyte Esterase Negative Negative /uL Urine RBC 97 0 - 4 /hpf Urine Microscopic WBC 5 0-5 /HPF Urine Squamous Epithelial Cells Few <5 /hpf Urine Calcium Oxalate Crystals Few None Seen Urine Bacteria Few H None Seen /hpf Urine Hyaline Casts Few 0 - 2 /lpf Urine Mucus Few None Seen Urine Glucose Normal Normal mg/dL Urine Test Negative Negative Urine Opiates Screen Neg NEGATIVE Urine Fentanyl Screen Neg NEGATIVE Urine Barbiturates Screen Neg NEGATIVE Urine Phencyclidine Screen Neg NEGATIVE Urine Amphetamines Screen Neg NEGATIVE Urine Benzodiazepines Screen Neg NEGATIVE Urine Cocaine Screen Neg NEGATIVE Urine Cannabinoids Screen Neg NEGATIVE Anisocytosis (manual) Slight Lactic Acid Level 1.2 0.4-2.0 mmol/L Magnesium Level 2.0 1.6-2.6 mg/dL B-Type Natriuretic Peptide 223.92 0-100 pg/mL Lipase 36 12-53 U/L CT SCAN ABDOMEN AND PELVIS WITHOUT CONTRAST FINDINGS: LOWER THORAX: Small peripheral airspace opacities in the superior aspects of the posterior lower lobes. Scattered atelectasis/ scarring. ABDOMEN AND PELVIS: Evaluation of visceral and vascular structures is limited due to lack of contrast administration. As visualized, the unenhanced liver, spleen, pancreas and adrenals appear gross ly unremarkable. The gallbladder is not clearly delineated and may be contracted or surgically absent. No appreciable biliary ductal dilatation. No hydroureteronephrosis or sizable, obstructing urinary tract calculi identified. Punctate left interpolar nephrolithiasis. No evidence of abdominal aortic aneurysm. Small hiatal hernia with distal esophageal thickening. No evidence of bowel obstruction. Visualized portions of the appendix appear normal caliber. No free intraperitoneal air or fluid identified. No sizable bladder calculus. Borderline enlarged bilateral inguinal lymph nodes. No destructive osseous lesions identified. Degenerative changes of the lower lumbar spine. IMPRESSION: No discrete hepatic lesions or biliary ductal dilatation appreciated on this noncontrast exam. Gallbladder is not clearly delineated and may be contracted or surgically absent. Ultrasound may be obtained to further evaluate. Small hiatal hernia with thickening of the distal esophagus. Small, patchy airspace opacities in the superior aspects of the imaged bilateral lower lobes. Correlate to exclude atypical infection. CHEST RADIOGRAPH FINDINGS: Lines and Tubes: None Lungs: Clear Pleura: No effusion. No pneumothorax. Cardiomediastinal contours: Unremarkable Bones: Unremarkable IMPRESSION: No abnormality demonstrated. CT HEAD WITHOUT CONTRAST FINDINGS: There is no evidence of intracranial hemorrhage, acute infarct, extra-axial collection, mass effect, midline shift, herniation or hydrocephalus. There is an area of gliosis/old infarct in the right insula and frontal lobe. There is moderate ventricular enlargement related to cerebral volume loss/ex-vacuo dilatation. The right supraclinoid ICA and right MCA appear dysplastic. Visualized paranasal sinuses and mastoid air cells are clear. Soft tissues and osseous structures are unremarkable. IMPRESSION: No acute intracranial abnormality identified. Gliosis/old infarct in right insula and frontal lobe. Assessment/Plan Assessment/Plan Assessment: Sepsis, Acute liver failure, HIV, Transaminitis, UTI, Acute kidney injury, Plan: Admit to ICU, GI consult, Infectious disease consult, IV antibiotics, IV hydration, Vasopressors as needed, Ammonia level in am, Send stool for occult blood, Plan discussed with: Patient My Orders Orders - JO WATSON Procedure Category Date Status Time Admit ADMIT 01/20/25 Verified 11:46 Code Status CODE 01/20/25 Verified 11:46 Ondansetron Hcl PHA 01/20/25 Verified (Zofran) 12:00 Complete Blood Count LAB 01/21/25 Verified 04:00 Comprehensive LAB 01/21/25 Verified Metabolic Panel 04:00 Npo (Nothing By DIET 01/20/25 Verified Mouth) Diet Lunch Echo 2d Mode Cardiac US 01/20/25 Verified DOP 11:46 Condition: Critical [facility] 01/20/25 Verified 11:46 Nitroglycerin [facility] 01/20/25 Verified Sublingual (Ntrostat 12:00 Morphine Sulfate PHA 01/20/25 Verified Injection 12:00 Stat Ekg For Chest [facility] 01/20/25 Verified Pain 11:46 Notify Md Of Changes [facility] 01/20/25 Verified From Base 11:46 Solar Sales Manager For [facility] 01/20/25 Verified 24 Hours 11:46 Emergency Dysrhythmia [facility] 01/20/25 Verified Protocol 11:46 Rhythm Strips Once [facility] 01/20/25 Verified Every Shift 11:46 Oxygen By Nasal RT 01/20/25 Verified Cannula 11:46 * Gi Dvh Plasma Specialist CONS 01/20/25 Verified 11:46 * Infectious Ori Suárez CONS 3/11/25 Verified Danika Guadalupe 11:46 Date of Service: Jan 20, 2025 Billing Provider: JO WATSON Common Visit Codes: [id number] INP/OBS CARE (HIGH) JO WATSON Jan 20, 2025 12:34
--- NOTE | 2025-01-20 14:31 | DVHINCON2 ---
GI Consult Consult Note GI consult note Date of Consultation: 01/20/2025 Chief Complaint: Vomiting blood Referring Physician: Israel JAY H&P: 34-year-old female with PMH CVA with residual left-sided weakness and garbled speech uses a walker to ambulate, HTN, HIV, asthma presented to ER with decreased appetite and generalized weakness Patient is homeless and has been staying with a friend noticed that the patient was becoming progressively weaker Patient complains of slight upper abdominal pain. Patient has nausea and vomiting, and admits to having three episodes of hematemesis yesterday. No nausea vomiting at this time. No reports of melena or red blood in stool Patient denies alcohol use. Patient admits to not taking any medications at this time Patient unaware that she had liver problems in the past. Patient unsure when her eyes had turned yellowish Past Medical History: HTN, asthma, CVA 2021 with left-sided weakness and slurred speech, HIV Past Surgical History: Pacemaker Social History: NO smoking, drinking ETOH and use of illegal drugs. Family History: Noncontributory Review of Systems: As above Physical exam: General: NAD, AAOX3 Chest: lung barragan clear to auscultation Heart: RRR, no murmur Abdomen: no tenderness to palpation, +BS Labs: Labs Test 01/20/25 13:01 01/20/25 08:06 01/20/25 08:01 01/19/25 23:15 Range/Units POC Glucose 142 H 70-106 mg/dl Blood Gas Specimen Type Venous Blood Gas Sample Site Other Blood Gas Patient Temperature 37.0 Arterial Blood Date Drawn [id number] Giorgio Test N/a Venous Blood pH 7.258 L 7.320-7.430 Venous Blood pCO2 at Patient Temp 59.1 *H 38.0-54.0 mmHg Venous Blood pO2 at Patient Temp 38.9 23.0-48.0 mmHg Venous Blood HCO3 25.8 22.0-29.0 mmol/L Venous Blood Base Excess -2.5 L -2.0-3.0 mmol/L Blood Gas Modality Room air FiO2 % 21.0 Blood Gas Comments Blood Gas Critical Value Read Back Yes Blood Gas Notified Whom glo [place] Blood Gas Notified Time [id number] Blood Gas Notified By Terrazzo Roller jacques morgan White Blood Count 10.6 # 4.4-10.8 10^3/uL Red Blood Count 4.23 4.0-5.20 10^6/uL Hemoglobin 12.5 12.2-16.2 g/dL Hematocrit 38.3 36.0-46.0 % Mean Corpuscular Volume 90.5 80.0-100.0 fL Mean Corpuscular Hemoglobin 29.7 28.0-32.0 pg Mean Corpuscular Hemoglobin Concent 32.8 32.0-36.0 g/dL Red Cell Distribution Width 18.5 H 11.8-14.3 % Platelet Count 85 L 140-450 10^3/uL Mean Platelet Volume 9.0 6.9-10.8 fL Neutrophils (%) (Auto) 37.0-80.0 % Lymphocytes (%) (Auto) 10.0-50.0 % Monocytes (%) (Auto) 0.0-12.0 % Basophils (%) (Auto) 0.0-2.0 % Neutrophils # (Auto) 1.6-8.6 10 ^3/uL Lymphocytes # (Auto) 0.4-5.4 10 ^3/uL Monocytes # (Auto) 0-1.3 10 ^3/uL Differential Total Cells Counted 100.0 100 Neutrophils % (Manual) 66 37.0-80.0 Band Neutrophils % (Manual) 7 Lymphocytes % (Manual) 17 10.0-50.0 Monocytes % (Manual) 9 0-12 Eosinophils % (Manual) 1 0-7 Basophils % (Manual) 0 0.0-2.0 Metamyelocytes % (manual) 0 Myelocytes % (Manual) 0 Promyelocytes % (Manual) 0 Blast Cells % (Manual) 0 Nucleated Red Blood Cells % Reactive Lymphocytes 0 Platelet Estimate Decreased Prothrombin Time 12.1 H 9.3-11.8 sec Prothrombin Time INR 1.16 H 0.9-1.15 Activated Partial Thromboplast Time 35.8 H 24.5-34.5 SEC Sodium Level 145 136-145 mmol/L Potassium Level 3.6 3.5-5.1 mmol/L Chloride Level 114 H 98-107 mmol/L Carbon Dioxide Level 23 20-31 mmol/L Anion Gap 8 5-15 Blood Urea Nitrogen 15 9-23 mg/dL Creatinine 1.49 H 0.550-1.02 mg/dL Glomerular Filtration Rate Calc 47 >90 mL/min BUN/Creatinine Ratio 10.1 10.0-20.0 Serum Glucose 100 74-106 mg/dL Calcium Level 10.0 8.7-10.4 mg/dL Total Bilirubin 11.3 H 0.2-1.0 mg/dL Aspartate Amino Transferase (AST) > 1000 H 13-40 U/L Alanine Aminotransferase (ALT) 875 H 7-40 U/L Alkaline Phosphatase > 2300 H 46-116 U/L Ammonia 14 11-32 umol/L Troponin I High Sensitivity 70 *H </=34 ng/L Total Protein 7.7 5.7-8.2 g/dL Albumin 3.3 3.2-4.8 g/dL Salicylates Level < 3.0 -30 mg/dL Acetaminophen Level 8.0 L 10.0-20.0 UG/ML Plasma/Serum Blood Alcohol < 3.0 <10 mg/dL Urine Color Dark-yellow Yellow Urine Clarity Turbid H Clear Urine pH 6.0 5.0-9.0 Urine Specific [place] 1.017 1.001-1.035 Urine Protein 1+ H Negative Urine Ketones Negative Negative Urine Blood 2+ H Negative /uL Urine Nitrite Negative Negative Urine Bilirubin 2+ H Negative Urine Urobilinogen Normal Negative mg/dL Urine Leukocyte Esterase Negative Negative /uL Urine RBC 97 0 - 4 /hpf Urine Microscopic WBC 5 0-5 /HPF Urine Squamous Epithelial Cells Few <5 /hpf Urine Calcium Oxalate Crystals Few None Seen Urine Bacteria Few H None Seen /hpf Urine Hyaline Casts Few 0 - 2 /lpf Urine Mucus Few None Seen Urine Glucose Normal Normal mg/dL Urine Test Negative Negative Urine Opiates Screen Neg NEGATIVE Urine Fentanyl Screen Neg NEGATIVE Urine Barbiturates Screen Neg NEGATIVE Urine Phencyclidine Screen Neg NEGATIVE Urine Amphetamines Screen Neg NEGATIVE Urine Benzodiazepines Screen Neg NEGATIVE Urine Cocaine Screen Neg NEGATIVE Urine Cannabinoids Screen Neg NEGATIVE Test 01/19/25 15:53 Range/Units Anisocytosis (manual) Slight Lactic Acid Level 1.2 0.4-2.0 mmol/L Magnesium Level 2.0 1.6-2.6 mg/dL B-Type Natriuretic Peptide 223.92 0-100 pg/mL Lipase 36 12-53 U/L Imaging: CT abdomen pelvis IMPRESSION: No discrete hepatic lesions or biliary ductal dilatation appreciated on this noncontrast exam. Gallbladder is not clearly delineated and may be contracted or surgically absent. Ultrasound may be obtained to further evaluate. Small hiatal hernia with thickening of the distal esophagus. Small, patchy airspace opacities in the superior aspects of the imaged bilateral lower lobes. Correlate to exclude atypical infection. Assessment: Acute Liver failure, possible secondary to hypoxic shock Sepsis UTI HIV Plan: Discussed with Dr. Sheldon Abdominal ultrasound MATT Monitor lab We will continue to monitor the patient Plan discussed with patient and RN Thank you for this consult Date of Service: Jan 20, 2025 Billing Provider: GURVINDER MATHEW Common Visit Codes: CONSULT ONLY Consultation Codes: [id number] CONSULT <60MIN GURVINDER MATHEW Jan 20, 2025 14:31
--- NOTE | 2025-01-20 15:55 | DVH ---
Procedure: US ABDOMEN LIMITED Study Date and Requested Time: 01/20/2025 02:31 PM History: elevated LFTs Comparison: CT abdomen and pelvis 01/19/2025 Technique: Multiple high resolution may-scale images obtained of the right upper quadrant of the abd omen with color Doppler for evaluation of blood flow and vascularity as indicated. Findings: Liver is borderline enlarged measuring up to 17 cm in length, with homogenous echotexture and normal contours. No evidence of focal hepatic lesions, intrahepatic or extrahepatic ductal dilatation. Commo n bile duct measures 0.3 cm in diameter. Nonspecific mild gallbladder wall thickening at 0.5 cm. Otherwise, the gallbladder is unremarkable wi th no evidence of cholelithiasis or pericholecystic free fluid. Negative sonographic Broderick's sign. Pancreas is unremarkable. Right kidney measures 10.3 cm in length, with normal contours, and cortical thickness. No evidence o f hydronephrosis. 0.9 cm right renal lower pole cyst. Increased right renal cortical echogenicity. Partially visualized inferior vena cava is unremarkable. Impression: Right renal cortical echogenicity which may be from medical renal disease. Nonspecific gallbladder wall thickening at 0.5 cm with no ultrasound evidence of cholelithiasis or ac resighini cholecystitis.
[2025-01-20] MEDS: VASOPRESSIN 20 UNITS in SODIUM CHL 0.9% 99 ML IV SCH (16:51)
[2025-01-20] MEDS: CEFEPIME 1GM/ 50ML 50 ML IV ONE (17:01)
[2025-01-20] MEDS: PHENYLEPHRINE IV 250 ML IV SCH (18:25)
[2025-01-20] MEDS: VANCOMYCIN 500mg/100mL 100 ML IV ONE (19:17)
[2025-01-20] MEDS: PHENYLEPHRINE INJ 80 MG in SODIUM CHL 0.9% 242 ML IV SCH (19:30)
[2025-01-20] MEDS: ONDANSETRON HCL 4 MG/2 ML VIAL IV PRN (20:14)
[2025-01-20] MEDS: NOREPINEPHRINE BITARTRATE 32 MG in SODIUM CHL 0.9% 218 ML IV SCH (20:52)
[2025-01-20] MEDS: ATORVASTATIN 20 MG TAB PO SCH (22:00)
[2025-01-20] MEDS: CEFEPIME 1GM/ 50ML 50 ML IV SCH (22:17)
[2025-01-20] MEDS: KETOROLAC TROMETH 30 MG/ML 1ML VIAL IV ONE (23:42)
[2025-01-21] VITALS (95 sets, daily range): BP systolic 76–154; BP diastolic 42–99; PULSE 60–110; RESP 8–36; TEMP 98–98.9; O2SAT 60–100
[2025-01-21 06:50] LABS: Anion Gap 10 (5-15); Blood Urea Nitrogen 18 mg/dL (9-23); Calcium 8.8 mg/dL (8.7-10.4); Carbon Dioxide 25 mmol/L (20-31); Glucose 99 mg/dL (74-106)
[2025-01-21 06:52] LABS: Hematocrit 32.1 % (36.0-46.0); Hemoglobin 10.3 g/dL (12.2-16.2); Mean Corpuscular Hgb Conc. 31.9 g/dL (32.0-36.0); Mean Corpuscular Volume 90.9 fL (80.0-100.0); Red Blood Cells 3.53 10^6/uL (4.0-5.20); Red Cell Distribution Width 19.1 % (11.8-14.3); White Blood Cell 13.2 10^3/uL (4.4-10.8)
[2025-01-21 06:53] LABS: Alanine Aminotransferase 680 U/L (7-40); Albumin 2.9 g/dL (3.2-4.8); Aspartate Aminotransferase > 1000 U/L (13-40); Bilirubin, Total 11.6 mg/dL (0.2-1.0); Chloride 113 mmol/L (98-107); Sodium 148 mmol/L (136-145)
[2025-01-21 07:05] LABS: Alkaline Phosphatase > 2300 U/L (46-116)
[2025-01-21 07:12] LABS: Basophils % (manual) 0 (0.0-2.0); Blast Cells 0; Myelocytes % 0; Platelet Count (auto) 62 10^3/uL (140-450); Promyelocytes % 0; Reactive Lymphocytes 0
[2025-01-21 08:44] LABS: BUN/Creatinine Ratio 10.4 (10.0-20.0)
[2025-01-21 08:45] LABS: Total Protein 6.9 g/dL (5.7-8.2)
[2025-01-21] MEDS: [UNRECOGNIZED DRUG - OTHER] PO SCH (10:00)
--- NOTE | 2025-01-21 10:24 | DVHPN2 ---
Progress Note Date Seen: Jan 21, 2025 Resident Creating Document: LUIS RUST RESIDENT Medical Necessity Reason Pt with a Central, PICC or Fol: Yes The following are medically ne: Central Line Subjective Review of Systems 34-year-old female with PMH CVA with residual left-sided weakness and garbled speech uses a walker to ambulate, HTN, HIV, asthma presented to ER with decreased appetite and generalized weakness, Patient is homeless and has been staying with a friend noticed that the patient was becoming progressively weaker, Patient complains of slight upper abdominal pain. Patient has nausea and vomiting, and admits to having three episodes of hematemesis yesterday. No nausea vomiting at this time. No reports of melena or red blood in stool, Patient denies alcohol use. Patient admits to not taking any medications at this time, Patient unaware that she had liver problems in the past. Patient unsure when her eyes had turned yellowish Objective vital signs Vital Sign Date Time Temp Pulse Resp B/P (MAP) Pulse Ox O2 Delivery O2 Flow Rate FiO2 01/21/25 08:00 63 01/21/25 07:00 18 108/73 (85) 100 01/21/25 06:00 Nasal Cannula* 2 28 01/21/25 04:00 98.3 98.3 Total Intake and Output 01/20/25 01/20/25 01/21/25 15:00 23:00 07:00 Intake Total 496.25 ml 662.065 ml 257.941 ml Output Total 825 ml 525 ml Balance 496.25 ml -162.935 ml -267.059 ml medications Current Medications Medications Dose Ordered Sig/Dorota Route Start Time Stop Time Status Last Admin Dose Admin Octreotide Acetate 500 mcg/ Sodium Chloride 100 ml @ 10 mls/hr Q10H IV 01/20/25 06:00 01/21/25 02:02 10 MLS/HR Ondansetron HCl 4 mg Q4HP PRN IV 01/20/25 12:00 01/20/25 20:14 4 MG Nitroglycerin 0.4 mg Q5MINP PRN SL 01/20/25 12:00 Morphine Sulfate 2 mg Q30M PRN IV 01/20/25 12:00 Patient Own Medication 1 tab DAILY PO 01/21/25 10:00 Vancomycin HCl 0 ml @ 0 mls/hr UD IV 01/20/25 12:15 Vasopressin 20 units/Sodium Chloride 100 ml @ 9 mls/hr Q11H7M IV 01/20/25 15:45 01/21/25 01:32 9 MLS/HR Norepinephrine Bitartrate 32 mg/ Sodium Chloride 250 ml @ 0.938 mls/ hr Q24H IV 01/20/25 19:15 01/21/25 09:50 10.313 MLS/HR Doxycycline Hyclate 100 ml @ 50 mls/hr Q12H IV 01/21/25 10:30 Meropenem 50 ml @ 17 mls/hr Q12HR IV 01/21/25 22:00 Examination General Appearance: Oriented x3 HEENT: Jaundice bilateral eyes Respiratory: Normal air movement Cardiovascular: Regular rate, Normal S1, Normal S2 Abdominal: Normal bowel sounds, distended, hepatospenomegaly, tender. Extremities: left sided weakness Neuro: slurred speech from previous CVA, difficulty ambulating at baseline from previous CVA uses a walker laboratory and microbiology Laboratory Tests 01/21/25 05:52 Test 01/21/25 05:52 Range/Units Serum Glucose 99 74-106 mg/dL Problem List/Assessment/Plan Problem List/Assessment/Plan # Acute Liver failure, possible secondary to hypoxic shock # septic shock # shock liver # Sepsis # HIV, # Transaminitis, # UTI, # Acute kidney injury, Plan: - Abdominal ultrasound: Nonspecific gallbladder wall thickening at 0.5 cm with no ultrasound evidence of cholelithiasis or acute cholecystitis. - MATT- pending - USG shows nonspecific gallbladder wall thickening - patient is on two vasopressor -continue octreotide drip -start Protonix 40 I/V b.i.d. - Monitor lab Thank you so much for the opportunity to consult on your patient. GI team will follow the patient. In case of any questions or concerns please feel free to reach out. Case discussed with Dr. Leonides Sheldon. The patient and caregiver team agreed to the plan. Plan discussed with: Patient LUIS RUST RESIDENT Jan 21, 2025 10:24
[2025-01-21 11:17] LABS: Creatinine, Urine 72.04 mg/dL (30.0-125.0)
[2025-01-21 11:19] LABS: Band Neutrophils % (manual) 17; Eosinophils % (manual) 5 (0-7); Lymphocytes % (manual) 10 (10.0-50.0); Metamyelocytes % 2; Monocytes % (manual) 4 (0-12); Platelet Estimate Decreased
[2025-01-21] MEDS: MEROPENEM 1GM IVPB 50 ML IV ONE (11:31)
[2025-01-21 11:43] LABS: Rapid Influenza A Negative (Negative); Rapid Influenza B Negative (Negative)
[2025-01-21 11:44] LABS: COVID19 ANTIGEN SOFIA FIA NEGATIVE (NEGATIVE)
[2025-01-21 11:55] LABS: Bilirubin, Direct 8.5 mg/dL (<0.3)
[2025-01-21] MEDS: DOXYCYCLINE 100MG/100ML 100 ML IV SCH (12:43)
--- NOTE | 2025-01-21 14:34 | DVH ---
Bilateral lower extremity venous duplex Clinical History: bilateral leg edema and pain, r/o dvt Comparison: None Technique: Duplex Doppler evaluation of the deep venous systems of both lower extremities from the common femora l veins to the popliteal veins including color Doppler and spectral/pulsed waveform analysis was perf ormed. Findings: RIGHT SIDE: The common femoral vein demonstrates appropriate compressibility and waveform variability. There is compressibility/patency of the great saphenous vein at the proximal thigh. The femoral vein demonstrates appropriate compressibility and waveform variability. The deep femoral vein demonstrates appropriate compressibility and waveform variability. The popliteal vein demonstrates appropriate compressibility and waveform variability. There is normal compressibility at the tibioperoneal trunk. LEFT SIDE: The common femoral vein demonstrates appropriate compressibility and waveform variability. There is compressibility/patency of the great saphenous vein at the proximal thigh. The femoral vein demonstrates appropriate compressibility and waveform variability. The deep femoral vein demonstrates appropriate compressibility and waveform variability. The popliteal vein demonstrates appropriate compressibility and waveform variability. There is normal compressibility at the tibioperoneal trunk. Prominent lymph node in the right groin measuring 1.2 cm in short axis. Impression: No right or left femoropopliteal venous thrombosis. Prominent lymph node in the right groin which is favored to be reactive.
--- NOTE | 2025-01-21 15:16 | ECG ---
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
--- NOTE | 2025-01-21 15:19 | DVH ---
EXAM: CT CHEST WITHOUT CONTRAST History: sob Comparison Study: None available TECHNIQUE: Multidetector CT of the chest was performed. Imaging was performed without IV contrast. Ax ial, coronal, and sagittal multiplanar reformats were obtained from the axial data set by the technol ogthad. Radiation Dose : CTDI vol 20.34 mGy, DLP 659.02 mGy*cm. Findings: Lungs: Right upper and bilateral lower lobe consolidations with air bronchograms. Pleura: Unremarkable Heart/Great vessels: No cardiomegaly or pericardial effusion. Mediastinum: Prominent mediastinal nodes. Soft tissues/Bones: Unremarkable The partially visualized upper abdomen is within normal limits. Impression: 1. Right upper and bilateral lower lobe consolidations with air bronchograms favoring an infectious/i nflammatory etiology. 2. Prominent mediastinal nodes favored reactive.
--- NOTE | 2025-01-21 16:09 | DVHINCON2 ---
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 Cephalexin Monohydrate (Cephalexin) 500 Mg Cap, 1 CAP PO QID, #40 CAP Prov:DOTTY TRANP 11/16/24 Prednisone (Prednisone) 20 Mg Tab, 60 MG PO DAILY, #18 MG Prov:BERNARDO DANGELO 11/12/24 Amoxicillin Trihydrate (Amoxicillin) 875 Mg Tab, 1 TAB PO BID, #20 TAB Prov:BERNARDO DANGELO 11/12/24 Current Medications Current Medications Medications (Trade) Dose Ordered Sig/Dorota Route PRN Reason Start Time Stop Time Status Last Admin Atorvastatin Calcium (Lipitor) 40 mg HS PO 01/20/25 22:00 01/21/25 10:09 DC Patient Own Medication 1 tab DAILY PO 01/21/25 10:00 Cefepime HCl 50 ml @ 12.5 mls/hr Q12HR IV 01/20/25 22:00 01/21/25 09:58 DC 01/21/25 09:51 Norepinephrine Bitartrate 32 mg/ Sodium Chloride 250 ml @ 0.938 mls/ hr Q24H IV 01/20/25 19:15 01/21/25 09:50 Phenylephrine HCl 80 mg/Sodium Chloride 250 ml @ 7.5 mls/hr Q24H IV 01/20/25 19:30 01/21/25 10:09 DC Doxycycline Hyclate 100 ml @ 50 mls/hr Q12H IV 01/21/25 10:30 01/21/25 12:43 Meropenem 50 ml @ 17 mls/hr Q12HR IV 01/21/25 22:00 Pantoprazole Sodium (Protonix) 40 mg BID IV 01/21/25 22:00 Vital Signs Vital Signs Date Time Temp Pulse Resp B/P (MAP) Pulse Ox O2 Delivery O2 Flow Rate FiO2 01/21/25 14:00 23 97 Nasal Cannula* 2 28 01/21/25 12:00 63 01/21/25 11:47 108/84 01/21/25 04:00 98.3 98.3 Labs/Diagnostic Data Labs Test 01/21/25 10:46 01/21/25 10:35 01/21/25 10:27 01/21/25 05:52 Range/Units Influenza Type A Antigen Negative Negative Influenza Type B Antigen Negative Negative SARS-CoV-2 Antigen (Rapid) Negative NEGATIVE Urine Creatinine 72.04 30.0-125.0 mg/dL Urine Sodium 126 40-220 mmol/L Reticulocyte Count (auto) 1.58 H 0.5-1.5 % Lactic Acid Level 0.9 0.4-2.0 mmol/L Mean Platelet Volume 9.5 6.9-10.8 fL Neutrophils # (Auto) 1.6-8.6 10 ^3/uL Lymphocytes # (Auto) 0.4-5.4 10 ^3/uL Monocytes # (Auto) 0-1.3 10 ^3/uL Differential Total Cells Counted 100.0 100 Neutrophils % (Manual) 62 37.0-80.0 Band Neutrophils % (Manual) 17 Lymphocytes % (Manual) 10 10.0-50.0 Monocytes % (Manual) 4 0-12 Eosinophils % (Manual) 5 0-7 Basophils % (Manual) 0 0.0-2.0 Metamyelocytes % (manual) 2 Myelocytes % (Manual) 0 Promyelocytes % (Manual) 0 Blast Cells % (Manual) 0 Reactive Lymphocytes 0 Platelet Estimate Decreased Sodium Level 148 H 136-145 mmol/L Potassium Level 4.0 3.5-5.1 mmol/L Chloride Level 113 H 98-107 mmol/L Carbon Dioxide Level 25 20-31 mmol/L Anion Gap 10 5-15 Blood Urea Nitrogen 18 9-23 mg/dL Creatinine 1.73 H 0.550-1.02 mg/dL Glomerular Filtration Rate Calc 40 >90 mL/min BUN/Creatinine Ratio 10.4 10.0-20.0 Serum Glucose 99 74-106 mg/dL Calcium Level 8.8 8.7-10.4 mg/dL Total Bilirubin 11.6 H 0.2-1.0 mg/dL Direct Bilirubin 8.5 H <0.3 mg/dL Aspartate Amino Transferase (AST) > 1000 H 13-40 U/L Alanine Aminotransferase (ALT) 680 H 7-40 U/L Alkaline Phosphatase > 2300 H 46-116 U/L Ammonia 29 11-32 umol/L Lactate Dehydrogenase 545 H 120-246 U/L Creatine Kinase 48 34-145 U/L Total Protein 6.9 5.7-8.2 g/dL Albumin 2.9 L 3.2-4.8 g/dL Beta HCG, Quantitative 0.2 L 1.5-4.2 mIU/mL Random Vancomycin Level 18.3 H 5-10 ug/mL Test 01/20/25 15:04 01/20/25 13:01 01/20/25 08:06 01/20/25 08:01 Range/Units Anti-Nuclear Antibody Screen Negative Negative POC Glucose 142 H 70-106 mg/dl Blood Gas Specimen Type Venous Blood Gas Sample Site Other Blood Gas Patient Temperature 37.0 Arterial Blood Date Drawn [id number] Giorgio Test N/a Venous Blood pH 7.258 L 7.320-7.430 Venous Blood pCO2 at Patient Temp 59.1 *H 38.0-54.0 mmHg Venous Blood pO2 at Patient Temp 38.9 23.0-48.0 mmHg Venous Blood HCO3 25.8 22.0-29.0 mmol/L Venous Blood Base Excess -2.5 L -2.0-3.0 mmol/L Blood Gas Modality Room air FiO2 % 21.0 Blood Gas Comments Blood Gas Critical Value Read Back Yes Blood Gas Notified Whom glo [place] Blood Gas Notified Time [id number] Blood Gas Notified By jacques Costa Prothrombin Time 12.1 H 9.3-11.8 sec Prothrombin Time INR 1.16 H 0.9-1.15 Activated Partial Thromboplast Time 35.8 H 24.5-34.5 SEC Troponin I High Sensitivity 70 *H </=34 ng/L Salicylates Level < 3.0 -30 mg/dL Acetaminophen Level 8.0 L 10.0-20.0 UG/ML Plasma/Serum Blood Alcohol < 3.0 <10 mg/dL Test 01/19/25 23:15 01/19/25 15:53 Range/Units Urine Color Dark-yellow Yellow Urine Clarity Turbid H Clear Urine pH 6.0 5.0-9.0 Urine Specific [place] 1.017 1.001-1.035 Urine Protein 1+ H Negative Urine Ketones Negative Negative Urine Blood 2+ H Negative /uL Urine Nitrite Negative Negative Urine Bilirubin 2+ H Negative Urine Urobilinogen Normal Negative mg/dL Urine Leukocyte Esterase Negative Negative /uL Urine RBC 97 0 - 4 /hpf Urine Microscopic WBC 5 0-5 /HPF Urine Squamous Epithelial Cells Few <5 /hpf Urine Calcium Oxalate Crystals Few None Seen Urine Bacteria Few H None Seen /hpf Urine Hyaline Casts Few 0 - 2 /lpf Urine Mucus Few None Seen Urine Glucose Normal Normal mg/dL Urine Test Negative Negative Urine Opiates Screen Neg NEGATIVE Urine Fentanyl Screen Neg NEGATIVE Urine Barbiturates Screen Neg NEGATIVE Urine Phencyclidine Screen Neg NEGATIVE Urine Amphetamines Screen Neg NEGATIVE Urine Benzodiazepines Screen Neg NEGATIVE Urine Cocaine Screen Neg NEGATIVE Urine Cannabinoids Screen Neg NEGATIVE Anisocytosis (manual) Slight Magnesium Level 2.0 1.6-2.6 mg/dL B-Type Natriuretic Peptide 223.92 0-100 pg/mL Lipase 36 12-53 U/L Problems(with codes): (1) Heat exhaustion (2) Acute sinusitis (3) Chronic leg pain (4) Retained suture (5) Generalized weakness (6) Hyperbilirubinemia (7) Thrombocytopenia (8) Hyperammonemia (9) Hypotension (10) Pneumonia (11) Elevated LFTs (12) Liver failure (13) Sepsis Plan/Recommendation ASSESSMENT AND PLAN: ID Problem List: - Altered mental status - Acute liver failure - Conjugated hyperbilirubinemia - Elevated liver enzymes - Possible hepatitis - History of polysubstance abuse - History of homelessness - Sepsis - Possible septic shock - Acute hypoxic respiratory failure - Pneumonia - Acute kidney injury (RAJENDRA) HIV - Chronic left-sided weakness - History of stroke Assessment This is a 34 y.o. female with a past medical history of HIV infection, stroke with resultant left-sided weakness and chronic speech impairment, pacemaker placement, lower extremity weakness, asthma, hyperlipidemia, and former metha mphetamine abuse, who presents with generalized weakness, altered mental status, and signs of acute liver failure. The patient has been homeless and staying with a friend. Her friend noticed she was becoming weak, lethargic, and not drinking well, worsening over the last several days. She is now admitted with poor mentation, is unclear why she is in the hospital, and is disoriented to the month. On admission, she was found to have hypotension, hypothermia (temperature 93F), hyperbilirubinemia (total bilirubin 12 mg/dL, direct bilirubin 8.5 mg/dL), significantly elevated liver enzymes (AST >1000 U/L, ALT 875 U/L, alkaline phosphatase >2300 U/L), and transaminitis. She is jaundiced with scleral icterus and exhibits positive asterixis. She also reports short-term memory loss and left-sided weakness. Physical examination reveals abdominal distension and tenderness in the right upper quadrant. Laboratory studies revealed WBC 10.6 x10^3/L, hemoglobin 12.5 g/dL, platelet count 85 x10^3/L (thrombocytopenia), sodium 145 mmol/L, BUN 15 mg/dL, creatinine 1.49 mg/dL (RAJENDRA), lactic acid 1.2 mmol/L, pro-BNP 223.92 pg/mL, lipase 36 U/L, and acetaminophen level 8 g/mL. Salicylate and alcohol levels were negative. Imaging studies include: - CT Abdomen/Pelvis: No discrete hepatic lesions or biliary ductal dilatation on non-contrast exam. Small patchy airspace opacities in the superior aspects of the bilateral lower lobes, correlating with atypical infection. - Chest X-ray: Clear lungs, no cardiomegaly. - Head CT: No acute intracranial process; old infarct in the right insula and frontal lobe. - Ultrasound Abdomen: Nonspecific gallbladder wall thickening (0.5 cm) with no evidence of cholelithiasis or acute cholecystitis. - CT Chest: Right upper and bilateral lower lobe consolidations with air bronchograms concerning for infectious/inflammatory etiology; prominent mediastinal nodes favoring reactive process. The patient reports lifelong HIV infection and is on Biktarvy at home, stating she is compliant. Recent labs (April) showed CD4 count of 198 cells/mm with a CD4 percentage of 24.7% and a viral load of 270 copies/mL. She has a history of syphilis with an RPR of 1:2 recently; treatment history is unclear. Plan: - Infectious Disease Management: - Continue vancomycin and doxycycline and cefepime for empirical coverage. - Recommend sputum culture, blood cultures, and urine culture; monitor results. - No need to initiate additional antiretroviral therapy at this time. - Hepatology: - Hold Biktarvy in the setting of acute liver failure. - Consult Gastroenterology for evaluation and management of acute liver failure. - Evaluate for acetaminophen toxicity (acetaminophen level of 8 g/mL). - Hepatitis screening is pending; evaluate for viral hepatitis. - Agree with MRCP to further assess etiology of conjugated hyperbilirubinemia. - Consider workup for rickettsial illness if no alternative etiology is found. - Critical Care: - Maintain MAPs above 65 mmHg with levophed (norepinephrine) and vasopressin. - Defer management of acute GI bleed, anemia, and thrombocytopenia to GI team. - Continue BiPAP therapy to maintain O2 saturations above 90-95%. - Neurology: - Monitor neurological status; patient exhibits short-term memory loss and confusion. - Additional Considerations: - Monitor renal function due to RAJENDRA. - Address social determinants of health, including homelessness. Isolation Precautions: Standard Authorized and Performed by: Emmy Guadalupe Total critical care time: Approximately 76 minutes Due to a high probability of clinically significant, life threatening deterioration, the patient required my highest level of preparedness to intervene emergently and I personally spent this critical care time directly and personally managing the patient. This critical care time included obtaining a history; examining the patient; pulse oximetry; ordering and review of studies; arranging urgent treatment with development of a management plan; evaluation of patient's response to treatment; frequent reassessment; and, discussions with other providers. This critical care time was performed to assess and manage the high probability of imminent, life-threatening deterioration that could result in multi-organ failure. It was exclusive of separately billable procedures and treating other patients and teaching time. Assessment and plan were discussed with the patient as written above. Plan is subject to change pending incorporation of new incoming information/diagnostics. Updates may be added as addendum at the bottom (OR TOP) of this note. Thank you for interesting consult. ID will continue to follow. Please contact Infectious Disease for any questions or concerns. Emmy Guadalupe M.D. Lev Medical History: The patient's chart and medications were reviewed in detail, and the patient was seen and examined. History obtained from: Patient Miss Rivera is a 34 y.o. female with a past medical history of HIV infection, stroke resulting in left-sided weakness and chronic speech impairment, pacemaker placement, lower extremity weakness, asthma, hyperlipidemia, and former methamphetamine abuse, who presents with generalized weakness. She has been homeless and staying with a friend. Her friend noticed that she was becoming weak, lethargic, and not drinking well, worsening over the last several days. She is now admitted with poor mentation, is unclear why she is in the hospital, and is disoriented to the month. She was found to have hypotension, acute liver failure, hypothermia, hyperbilirubinemia, and transaminitis. The patient reports lifelong HIV infection and a prior history of syphilis, which has been treated. She denies current drug use and alcohol use, except for former methamphetamine use, which she quit about a year ago. She is also a former cigarette smoker. No recent surgeries. Review of Systems: A complete 10-system review of systems was completed and negative except as noted in the HPI or here. ROS: - CONSTITUTIONAL: Reports generalized weakness and lethargy. Denies weight loss, fever, and chills. - HEENT: Reports jaundice and scleral icterus. Denies changes in vision and hearing. - RESPIRATORY: Denies shortness of breath and cough. - CV: Denies palpitations and chest pain. - GI: Reports abdominal distension and right upper quadrant tenderness. Denies nausea, vomiting, and diarrhea. - : Denies dysuria and urinary frequency. - MSK: Reports left-sided weakness and lower extremity weakness. Denies myalgia and joint pain. - SKIN: Reports jaundice. Denies rash and pruritus. - NEUROLOGICAL: Reports short-term memory loss. Known chronic speech impairment. - PSYCHIATRIC: Disoriented to place and time. Denies recent changes in mood, anxiety, and depression. Past Medical History: - HIV infection (lifelong) - Stroke with left-sided weakness and chronic speech impairment - Pacemaker placement - Asthma - Hyperlipidemia - History of syphilis (treated) - Methamphetamine abuse (in remission) Past Surgical History: - Pacemaker placement Home Medications: Prior to Admission Medications: | Medication | Sig | |-|-| | Biktarvy 50-200-25 mg tablet | Take 1 tablet by mouth daily. (emtricitabine/tenofovir alafenamide/bictegravir) | Allergies: - No known allergies Family History: - No pertinent family history provided. Social History: - Socioeconomic History: - Homeless; currently staying with a friend. - Tobacco Use: - Former smoker; quit date not specified. - Substance Use: - Former methamphetamine use; quit about a year ago. - Denies current alcohol and drug use. - Sexual Activity: - Not specified. Social Determinants of Health: - Financial Resource Strain: High risk - Food Insecurity: High risk - Transportation Needs: High risk Objective: Vital Signs on Arrival: - Temp: 93F (33.9C) - BP: 117/71 mmHg - Pulse: 73 bpm - Resp: 14 breaths/min - SpO2: 79% on room air Current Vital Signs: - Patient is on levophed (norepinephrine) drip to maintain MAPs above 65 mmHg, as well as vasopressin and starting octreotide. Physical Exam: - General: Lethargic, appears ill. - Neck: Supple. No masses. - HEENT: Pupils equal, round, and reactive to light (PERRL). Scleral icterus present. Moist mucous membranes. - Heart: Regular rhythm, normal rate. No murmurs. No lower extremity edema. - Lungs: Normal respiratory effort. Clear to auscultation bilaterally. No wheezes or crackles. - Abdomen: Distended. Tenderness in the right upper quadrant. No masses or hernias. - Musculoskeletal: Left-sided weakness. Normal strength and tone in the right limbs. - Skin: Jaundiced skin. Warm and dry. No rashes. - Neurological: Alert but disoriented to time and situation. Positive asterixis. Chronic speech impairment noted. Extraocular movements intact. Sensation intact to soft touch. - Psychiatric: Appears confused. Affect is flat. Lines: - Peripheral IV Lines: - Details not specified. Diagnostic Studies: Available diagnostic studies were reviewed personally. Significant relevant resu lts and findings are outlined below or addressed in the Assessment and Plan above. Laboratory Results: CBC: - WBC: 10.6 x10^3/L - Hemoglobin: 12.5 g/dL - Platelets: 85 x10^3/L - Metabolic Panel: - Sodium: 145 mmol/L - BUN: 15 mg/dL - Creatinine: 1.49 mg/dL - Liver Function Tests: AST: >1000 U/L ALT: 875 U/L - Alkaline phosphatase: >2300 U/L - Total bilirubin: 12 mg/dL - Direct bilirubin: 8.5 mg/dL - Other Labs: - Lactic acid: 1.2 mmol/L - Pro-BNP: 223.92 pg/mL - Lipase: 36 U/L - Acetaminophen level: 8 g/mL - Salicylates: Negative - Urine drug screen: Positive for acetaminophen Imaging Studies: - CT Abdomen/Pelvis (Non-contrast): - No discrete hepatic lesions or biliary ductal dilatation. - Small patchy airspace opacities in the superior aspects of bilateral lower lobes. - Chest X-ray: - Clear lungs. No cardiomegaly. - Head CT: - No acute intracranial process. - Old infarct in the right insula and frontal lobe. - Ultrasound Abdomen: - Nonspecific gallbladder wall thickening (0.5 cm). - No evidence of cholelithiasis or acute cholecystitis. - CT Chest: - Right upper and bilateral lower lobe consolidations with air bronchograms con cerning for infectious/inflammatory etiology. - Prominent mediastinal nodes favoring reactive process. Plan discussed with: Patient EMMY GUADALUPE MD Jan 21, 2025 16:09"
--- NOTE | 2025-01-21 16:40 | DVH ---
EXAM: US RIGHT LOWER QUAD CLINICAL HISTORY: r/o appendicitis COMPARISON: CT abdomen pelvis from 01/19/2025 TECHNIQUE: Real-time ultrasound of the right lower quadrant was performed utilizing a high resolutio n linear transducer. Findings and Impression: The appendix is not definitively visualized. Cannot exclude acute appendicitis. If clinically indicat ed, CT or MR may be useful for further evaluation. 2.0 x 1.1 x 1.1 cm lymph node in the right lower quadrant. No free fluid or free air noted within the right lower quadrant. 2.2 x 1.2 x 1.4 cm anechoic lesion adjacent to the right iliac vessels. Findings are nonspecific. N o definite correlate on CT abdomen pelvis from 01/19/2025.
--- NOTE | 2025-01-21 18:05 | DVHPNRES ---
Progress Note Date Seen: Jan 21, 2025 Resident Creating Document: KELLI DE ANDA RESIDENT Medical Necessity Reason Pt with a Central, PICC or Fol: Yes The following are medically ne: Central Line Subjective Review of Systems This is a 34-year-old female who was brought to the ER for generalized weakness. 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 Farida brought her to the hospital because she noticed she was becoming week, lethargic, not eating, or drinking well for the last couple of days. The patient was alert and oriented to self and where she is. In the ER patient was found to be in acute liver failure, hypotensive, hypothermic, hyperbilirubinemia, transaminitis, and septic. Patient states she has been homeless for a while prior to staying with her friend. States she did not know that she had any liver problems and has never been treated for her liver prior. States she has been taking her HIV medication for years. Patient states she has an uncle and 2 sisters. However, she does not have a phone and she does not know their phone numbers. Farida states that she has never know her to be a drinker, states she use to use methamphetamines, but it has been almost a year since she has used as far as she knows. On my assessment, patient continues to be on Levophed and vasopressin, she is on nasal cannula at 2 L saturating well above 92%, under vital signs were unremarkable. Patient was initially given IV fluids, broad-spectrum antibiotics, cultures were obtained, CMP revealed severely elevated LFTs, GI doctor was consulted. On further questioning, patient stated that she does see an infectious disease doctor [place] the [place], name is Dr. Daniel, she stated that the last time she saw him was around six months ago, patient stated that he has also her primary care doctor. Patient states being compliant with her medications. Denies any recent travel. She stated that she had a blood transfusion last year denies any other blood transfusions. Patient is currently only complaining of mild shortness of breath, denies any chest pain, cough, fevers, chills, significant weakness, numbness, headaches, visual changes, dizziness, lightheadedness, sore throat, abdominal pain, nausea, vomiting. Patient does stated that she feels a dry mouth. Objective vital signs Vital Sign Date Time Temp Pulse Resp B/P (MAP) Pulse Ox O2 Delivery O2 Flow Rate FiO2 01/21/25 17:30 65 18 128/90 (103) 99 01/21/25 16:15 98.1 98.1 01/21/25 16:00 Nasal Cannula* 2 28 Total Intake and Output 01/20/25 01/20/25 01/21/25 15:00 23:00 07:00 Intake Total 496.25 ml 662.065 ml 257.941 ml Output Total 825 ml 525 ml Balance 496.25 ml -162.935 ml -267.059 ml medications Current Medications Medications Dose Ordered Sig/Dorota Route Start Time Stop Time Status Last Admin Dose Admin Octreotide Acetate 500 mcg/ Sodium Chloride 100 ml @ 10 mls/hr Q10H IV 01/20/25 06:00 01/21/25 12:59 10 MLS/HR Ondansetron HCl 4 mg Q4HP PRN IV 01/20/25 12:00 01/20/25 20:14 4 MG Nitroglycerin 0.4 mg Q5MINP PRN SL 01/20/25 12:00 Morphine Sulfate 2 mg Q30M PRN IV 01/20/25 12:00 Patient Own Medication 1 tab DAILY PO 01/21/25 10:00 Vancomycin HCl 0 ml @ 0 mls/hr UD IV 01/20/25 12:15 Vasopressin 20 units/Sodium Chloride 100 ml @ 9 mls/hr Q11H7M IV 01/20/25 15:45 01/21/25 11:47 9 MLS/HR Norepinephrine Bitartrate 32 mg/ Sodium Chloride 250 ml @ 0.938 mls/ hr Q24H IV 01/20/25 19:15 01/21/25 09:50 10.313 MLS/HR Doxycycline Hyclate 100 ml @ 50 mls/hr Q12H IV 01/21/25 10:30 01/21/25 12:43 50 MLS/HR Meropenem 50 ml @ 17 mls/hr Q12HR IV 01/21/25 22:00 Pantoprazole Sodium 40 mg BID IV 01/21/25 22:00 Examination General: Awake, alert, in mild distress due to SOB. HEENT: Head is normocephalic and atraumatic. Pupils are equal, round, miotic and reactive to light. Intraoral exam shows dry mucous membranes with no tonsillar enlargement or exudate. Neck: Supple with no cervical lymphadenopathy. Heart: Regular rate without murmur, rub, or gallop. Lungs: Bilateral crackles, most prominent on right-side Abdomen: No external sign of injury. Bowel sounds are present. Abdomen is soft, moderate tenderness to palpation on RUQ, RLQ, yi (-), mcburney (+), rebound (-) Extremities: faint peripheral pulses. There is no clubbing, no cyanosis, and mild nonpitting edema in both lower extremities. Skin: Generalized Jaundice Neurologic: Cranial nerves II-XII intact without motor, sensory. Asterixis (+) laboratory and microbiology Laboratory Tests 01/21/25 05:52 Test 01/21/25 05:52 Range/Units Serum Glucose 99 74-106 mg/dL Microbiology Date/Time Source Procedure Growth Status 01/20/25 13:37 Nose MRSA Screen - Final Complete Labs and/or images reviewed: Labs reviewed by me, Image(s) reviewed by me Problem List/Assessment/Plan Problem List/Assessment/Plan #Septic shock likely due to pneumonia Gram-positive versus Gram-negative, rule out atypical infection #Acute hypoxic respiratory failure Maintain oxygen saturation above 92%, currently on nasal cannula Broad-spectrum antibiotics: meropenem IV Vancomycin IV Doxycycline IV Continue vasopressors, maintain a MAP above 60: Levophed, vasopressin, may start epinephrine Pending sputum culture, urine culture, blood culture, MRSA swab COVID and influenza tests were negative DuoNebs q.4 hours while awake #Acute liver failure, shock liver, possibly related to underlying infection, rule out HIV causes, hepatitis #Hyperammonemia, improved Avoid hepatotoxic drugs GI doctor following Continue monitoring LFTs Liver ultrasound revealed Nonspecific gallbladder wall thickening at 0.5 cm Ordered MRCP, since patient has a pacemaker then it has to be put on safe mode, contacted [facility] to arrange this. Pending acute hepatitis panel however hepatitis panel performed on December was unremarkable. Protonix 40 mg IV b.i.d. Octreotide drip #NSTEMI likely type 2 Related to septic shock #RAJENDRA likely due to VMN, prerenal, rule out ATN IV fluids given Avoid nephrotoxic agents Maintain a MAP about 60 #History of Syphilis #HIV, nonadherent Reviewed records from [facility], placed on chart 01/07/25: CD4: 198, 12/18/24: Viral load: 270, RPR 1:4 Held biktarvy Infectious disease doctor following #Anemia, normocytic normochromic #Thrombocytopenia, moderate #Secondary coagulopathy Monitor #H/o CVA (2021) Head CT shows: Gliosis/old infarct in right insula and frontal lobe. #History of methamphetamine abuse #History of heavy smoking #Obesity PUD prophylaxis with Protonix DVT prophylaxis held given thrombocytopenia Diet: Swallow evaluation requested, patient was started on mechanical soft diet Lines: Patient has a right femoral TLC placed on 01/20/2025, we will order a PICC line Goals of care were discussed for 30 minutes. Full code. I tried to call friend Farida on the phone however she did not orange picking supervisor, we will try again tomorrow. Tried contacting UNCLE EVERARDO CARL WITH THE TELEPHONE # , number doesn't go through Critical care time spent more than 90 minutes Case was discussed with Dr. Badillo Plan discussed with: Patient, Other My Orders My Orders Orders - KELLI DE ANDA RESIDENT Procedure Category Date Status Time Blood Culture LUIS 01/21/25 In Process 09:47 Respiratory Culture LUIS 01/21/25 Logged W/ Gs 09:47 Urine Bacterial LUIS 01/21/25 In Process Culture 09:47 Cd4/Cd8 Ratio Profile LAB 01/21/25 In Process 09:47 Doxycycline PHA 01/21/25 In Process 100mg/100ml 10:30 Meropenem 1gm Ivpb PHA 01/21/25 In Process (Merrem 1gm/ Ns) 22:00 St Eval Swallow Funct ST 01/21/25 Logged 45min 11:19 * Swallow Request ST 01/21/25 Transmitted 11:24 Mechanical Soft Diet DIET 01/21/25 Transmitted Lunch Mrcp Mri MRI 01/21/25 Logged 12:[address] 01/21/25 Resulted 12:59 Bilat Lower Dvt US 01/21/25 Resulted 13:04 Assess Pacemaker ALEKSANDR 01/21/25 In Process Function 14:08 Chief Technician To Assess ORDERS 01/21/25 Transmitted Pacemaker 14:08 Right Lower Quad US 01/21/25 Resulted 14:53 * Picc Line Consult CONS 01/21/25 Transmitted 15:02 Date of Service: Jan 21, 2025 Billing Provider: RAMAN BADILLO MD Common Visit Codes: 46804-MCELIJPT CARE 30-74 MIN, 17734-BVLKOUKH CARE-EACH +30MIN KELLI DE ANDA RESIDENT Jan 21, 2025 18:05 RAMAN BADILLO MD Jan 22, 2025 11:26
[2025-01-21 19:01] LABS: Base Excess -2.7 mmol/L (-2.0-3.0)
[2025-01-21 20:23] LABS: Base Excess -1.1 mmol/L (-2.0-3.0)
[2025-01-21] MEDS: levETIRAcetam 500 mg/100ml 100 ML IV ONE ×2 (21:54→23:07)
[2025-01-21] MEDS: IPRATROPIUM BROM 0.5 MG/2.5ML INH SOL NEB SCH (22:04)
[2025-01-21] MEDS: ALBUTEROL SULF 2.5 MG/0.5ML(0.5%) NEB SOLN NEB SCH (22:04)
--- NOTE | 2025-01-21 22:43 | DVHPN2 ---
Consult Progress Note Date Seen: Jan 21, 2025 Subjective Patient reports: Other (on levofed 22 mics , no longer hypothermic and is 98.0 in temp , altered , abdomen is distended , jaundice ) Objective vital signs Vital Sign Date Time Temp Pulse Resp B/P (MAP) Pulse Ox O2 Delivery O2 Flow Rate FiO2 01/21/25 22:10 86 16 95 01/21/25 22:04 Nasal Cannula 4.0 01/21/25 22:04 36 01/21/25 19:45 123/79 (94) 01/21/25 16:15 98.1 98.1 Total Intake and Output 01/20/25 01/20/25 01/21/25 15:00 23:00 07:00 Intake Total 496.25 ml 662.065 ml 257.941 ml Output Total 825 ml 525 ml Balance 496.25 ml -162.935 ml -267.059 ml medications Current Medications Medications Dose Ordered Sig/Dorota Route Start Time Stop Time Status Last Admin Dose Admin Octreotide Acetate 500 mcg/ Sodium Chloride 100 ml @ 10 mls/hr Q10H IV 01/20/25 06:00 01/21/25 12:59 10 MLS/HR Ondansetron HCl 4 mg Q4HP PRN IV 01/20/25 12:00 01/20/25 20:14 4 MG Nitroglycerin 0.4 mg Q5MINP PRN SL 01/20/25 12:00 Morphine Sulfate 2 mg Q30M PRN IV 01/20/25 12:00 Vancomycin HCl 0 ml @ 0 mls/hr UD IV 01/20/25 12:15 Vasopressin 20 units/Sodium Chloride 100 ml @ 9 mls/hr Q11H7M IV 01/20/25 15:45 01/21/25 11:47 9 MLS/HR Norepinephrine Bitartrate 32 mg/ Sodium Chloride 250 ml @ 0.938 mls/ hr Q24H IV 01/20/25 19:15 01/21/25 09:50 10.313 MLS/HR Doxycycline Hyclate 100 ml @ 50 mls/hr Q12H IV 01/21/25 10:30 01/21/25 12:43 50 MLS/HR Meropenem 50 ml @ 17 mls/hr Q12HR IV 01/21/25 22:00 Pantoprazole Sodium 40 mg BID IV 01/21/25 22:00 Albuterol 2.5 mg Q4HWA [facility] 01/21/25 22:00 01/21/25 22:04 2.5 MG Ipratropium [place] 0.5 mg Q4HWA [facility] 01/21/25 22:00 01/21/25 22:04 0.5 MG Lorazepam 1 mg Q5MINP PRN IV 01/21/25 22:45 Levetiracetam 100 ml @ 400 mls/hr BID IV 01/22/25 10:00 Physical Exam: - General: Lethargic, appears ill. - Neck: Supple. No masses. - HEENT: Pupils equal, round, and reactive to light (PERRL). Scleral icterus present. Moist mucous membranes. - Heart: Regular rhythm, normal rate. No murmurs. No lower extremity edema. - Lungs: Normal respiratory effort. Clear to auscultation bilaterally. No wheezes or crackles. - Abdomen: Distended. Tenderness in the right upper quadrant. No masses or hernias. - Musculoskeletal: Left-sided weakness. Normal strength and tone in the right limbs. - Skin: Jaundiced skin. Warm and dry. No rashes. - Neurological: Alert but disoriented to time and situation. Positive asterixis. Chronic speech impairment noted. Extraocular movements intact. Sensation intact to soft touch. - Psychiatric: Appears confused. Affect is flat. laboratory and microbiology Laboratory Tests 01/21/25 05:52 Test 01/21/25 05:52 Range/Units Serum Glucose 99 74-106 mg/dL Problem List/Assessment/Plan Problems(with codes): (1) Retained suture (2) Chronic leg pain (3) Sepsis (4) Liver failure (5) Heat exhaustion (6) Acute sinusitis (7) Elevated LFTs (8) Pneumonia (9) Hypotension (10) Hyperammonemia (11) Thrombocytopenia (12) Hyperbilirubinemia (13) Generalized weakness Problem List/Assessment/Plan ASSESSMENT AND PLAN: ID Problem List: - Altered mental status - Acute liver failure - Conjugated hyperbilirubinemia - Elevated liver enzymes - Possible hepatitis - History of polysubstance abuse - History of homelessness - Sepsis - Possible septic shock - Acute hypoxic respiratory failure - Pneumonia - Acute kidney injury (RAJENDRA) HIV - Chronic left-sided weakness - History of stroke Assessment This is a 34 y.o. female with a past medical history of HIV infection, stroke with resultant left-sided weakness and chronic speech impairment, pacemaker placement, lower extremity weakness, asthma, hyperlipidemia, and former methamphetamine abuse, who presents with generalized weakness, altered mental status, and signs of acute liver failure. The patient has been homeless and staying with a friend. Her friend noticed she was becoming weak, lethargic, and not drinking well, worsening over the last several days. She is now admitted with poor mentation, is unclear why she is in the hospital, and is disoriented to the month. On admission, she was found to have hypotension, hypothermia (temperature 93F), hyperbilirubinemia (total bilirubin 12 mg/dL, direct bilirubin 8.5 mg/dL), significantly elevated liver enzymes (AST >1000 U/L, ALT 875 U/L, alkaline phosphatase >2300 U/L), and transaminitis. She is jaundiced with scleral icterus and exhibits positive asterixis. She also reports short-term memory loss and left-sided weakness. Physical examination reveals abdominal distension and tenderness in the right upper quadrant. Laboratory studies revealed WBC 10.6 x10^3/L, hemoglobin 12.5 g/dL, platelet count 85 x10^3/L (thrombocytopenia), sodium 145 mmol/L, BUN 15 mg/dL, creatinine 1.49 mg/dL (RAJENDRA), lactic acid 1.2 mmol/L, pro-BNP 223.92 pg/mL, lipase 36 U/L, and acetaminophen level 8 g/mL. Salicylate and alcohol levels were negative. Imaging studies include: - CT Abdomen/Pelvis: No discrete hepatic lesions or biliary ductal dilatation on non-contrast exam. Small patchy airspace opacities in the superior aspects of the bilateral lower lobes, correlating with atypical infection. - Chest X-ray: Clear lungs, no cardiomegaly. - Head CT: No acute intracranial process; old infarct in the right insula and frontal lobe. - Ultrasound Abdomen: Nonspecific gallbladder wall thickening (0.5 cm) with no evidence of cholelithiasis or acute cholecystitis. - CT Chest: Right upper and bilateral lower lobe consolidations with air bronchograms concerning for infectious/inflammatory etiology; prominent mediastinal nodes favoring reactive process. The patient reports lifelong HIV infection and is on Biktarvy at home, stating she is compliant. Recent labs (April) showed CD4 count of 198 cells/mm with a CD4 percentage of 24.7% and a viral load of 270 copies/mL. She has a history of syphilis with an RPR of 1:2 recently; treatment history is unclear. 01/21: whitecount is going up , Dayron agosto is down trending , on 2 liters nasal canula Plan: - Infectious Disease Management: - Continue vancomycin and doxycycline and meropenem for empirical coverage. - Recommend sputum culture, blood cultures, and urine culture; monitor results. - No need to initiate additional antiretroviral therapy at this time. - Hepatology: - Hold Biktarvy in the setting of acute liver failure. - Consult Gastroenterology for evaluation and management of acute liver failure. - Evaluate for acetaminophen toxicity (acetaminophen level of 8 g/mL). - Hepatitis screening is pending; evaluate for viral hepatitis. - Agree with MRCP to further assess etiology of conjugated hyperbilirubinemia. - Consider workup for rickettsial illness if no alternative etiology is found. - Critical Care: - Maintain MAPs above 65 mmHg with levophed (norepinephrine) and vasopressin. - Defer management of acute GI bleed, anemia, and thrombocytopenia to GI team. - Continue BiPAP therapy to maintain O2 saturations above 90-95%. - Neurology: - Monitor neurological status; patient exhibits short-term memory loss and confusion. - Additional Considerations: - Monitor renal function due to RAJENDRA. - Address social determinants of health, including homelessness. Isolation Precautions: Standard Authorized and Performed by: Emmy Guadalupe Total critical care time: Approximately 76 minutes Due to a high probability of clinically significant, life threatening deterioration, the patient required my highest level of preparedness to intervene emergently and I personally spent this critical care time directly and personally managing the patient. This critical care time included obtaining a history; examining the patient; pulse oximetry; ordering and review of studies; arranging urgent treatment with development of a management plan; evaluation of patient's response to treatment; frequent reassessment; and, discussions with other providers. This critical care time was performed to assess and manage the high probability of imminent, life-threatening deterioration that could result in multi-organ failure. It was exclusive of separately billable procedures and treating other patients and teaching time. Plan discussed with: EMMY Hector MD Jan 21, 2025 22:43
[2025-01-21] MEDS ORDERED: LORazepam 2MG/ML-1ML VIAL IV PRN (22:45)
--- NOTE | 2025-01-21 22:48 | DVH ---
CT HEAD WITHOUT CONTRAST INDICATION: r/o intracranial process, pt had seizure-like activity COMPARISON: CT HEAD WITHOUT CONTRAST on DOS: 01/19/25 TECHNIQUE: CT of the head without intravenous contrast. RADIATION DOSE: CTDIvol: mGy, DLP: mGy*cm FINDINGS: Evidence of a small amount of localized subarachnoid/cortical hemorrhage in the left frontal lobe whi ch was not present on the recent CT scan from 01/19/25. No evidence of acute infarct, extra-axial collection, mass effect, midline shift, herniation or hydro cephalus. Again noted is area of gliosis/old infarct in the right insula and frontal lobe. Moderate v entricular enlargement related to cerebral volume loss/ex-vacuo dilatation. Right supraclinoid ICA an d right MCA again noted to be dysplastic in appearance. Visualized paranasal sinuses and mastoid air cells are clear. Soft tissues and osseous structures are unremarkable. Impression: Evidence of small amount of localized subarachnoid/cortical hemorrhage in left frontal lobe which was not present on the recent CT scan from 01/19/25.
[2025-01-21] MEDS: PANTOPRAZOLE 40 MG/10 ML VIAL INJ IV SCH (22:52)
[2025-01-21] MEDS: MEROPENEM 1GM IVPB 50 ML IV SCH (22:52)
[2025-01-21 23:43] LABS: Hemoglobin 9.8 g/dL (12.2-16.2)
[2025-01-21 23:45] LABS: Hematocrit 30.9 % (36.0-46.0); Mean Corpuscular Hemoglobin 30.1 pg (28.0-32.0); Mean Corpuscular Hgb Conc. 31.8 g/dL (32.0-36.0); Mean Corpuscular Volume 94.6 fL (80.0-100.0); Platelet Count (auto) 55 10^3/uL (140-450); Red Blood Cells 3.27 10^6/uL (4.0-5.20); Red Cell Distribution Width 19.4 % (11.8-14.3)
[2025-01-22] VITALS (89 sets, daily range): BP systolic 80–172; BP diastolic 40–117; PULSE 60–98; RESP 8–31; TEMP 97.4–98.6; O2SAT 86–100
[2025-01-22] LABS: Base Excess -2.4 mmol/L (-2.0-3.0)
[2025-01-22 00:10] LABS: Basophils % (manual) 0 (0.0-2.0); Blast Cells 0; Metamyelocytes % 0; Myelocytes % 0; Promyelocytes % 0; Reactive Lymphocytes 0
[2025-01-22 00:11] LABS: Anion Gap 8 (5-15); Blood Urea Nitrogen 19 mg/dL (9-23); Calcium 9.4 mg/dL (8.7-10.4); Carbon Dioxide 26 mmol/L (20-31); Creatine Kinase IFCC 50 U/L (34-145); Glucose 97 mg/dL (74-106); Potassium 3.6 mmol/L (3.5-5.1)
[2025-01-22 00:13] LABS: Alanine Aminotransferase 594 U/L (7-40); Aspartate Aminotransferase 970 U/L (13-40); Bilirubin, Total 10.4 mg/dL (0.2-1.0); Chloride 113 mmol/L (98-107); Sodium 147 mmol/L (136-145)
--- NOTE | 2025-01-22 00:14 | BSKYNEURO ---
[facility] Note # Demographics Consult Type: Acute Stroke Level 1 (0-4.5 hrs) Patient Location: Inpatient First Name: tata Last Name: jim Date of : 1990 Age: 34 Gender: Female Facility: [facility] Time of Initial Page (): 01/21/2025 23:53 Time of Return Call (): 01/21/2025 23:54 # HPI Chief Complaint: - seizure History: 34F admitted with septic shock due to pneumonia, HTN, asthma, prior stroke, seizures, HIV, PPM now with seizures. CT head done today shows subarachnoid hemorrhage. Has chronic left-sided weakness/facial droop. Has cirrhosis with thrombocytopenia. On levetiracetam 500mg BID at home. Has not been receiving it during admission. # Scores Time of exam and NIHSS (): 01/22/2025 00:05 Level of Consciousness 1a: [1] = Not alert; but arousable by minor stim LOC Questions 1b: [0] = Answers both questions correctly LOC Commands 1c: [0] = Performs both tasks correctly Best Gaze 2: [0] = Normal Visual 3: [0] = No visual loss Facial Palsy 4: [2] = Partial paralysis Motor Arm Left 5a: [2] = Some effort against gravity Motor Arm Right 5b: [1] = Drift Motor Leg Left 6a: [3] = No effort against gravity Motor Leg Right 6b: [2] = Some effort against gravity Limb Ataxia 7: [0] = Absent Sensory 8: [0] = Normal Best Language 9: [0] = No aphasia Dysarthria 10: [1] = Iyxf-[id number] dysarthria Extinction and Inattention 11: [0] = No abnormality NIHSS Total: 12 # Assessment Impression: Seizure in setting of septic shock Trace left frontal subarachnoid blood Thrombocytopenia # Plan Thrombolytic/Intervention: NOT IV Thrombolysis or IA Intervention candidate Thrombolytic Exclusion (< 3 hour window): - ICH Intraarterial Exclusion: - ICH Target Blood Pressure: SBP < 140 Imaging: (urgency: STAT): CTA head/neck and repeat CT head at 4 hours from prior study Medication: Keppra 2g x1, increase standing dose to 750mg BID Hemorrhage Reversal: Platelets, target > 100K in setting of acute subarachnoid blood Other: - If patient has any neurological deterioration please call me back immediately - seizure precautions - telemetry monitoring - I have discussed my recommendations with the referring provider Additional Recommendations: Close neuromonitoring If aneurysm present on CTA head, would transfer for higher level of care Disposition: continue admission # Logistics Attestation of consult completion: The patient is located at: [facility]. Facility staff participated in the visit. I performed this te lemedicine visit from my offsite office utilizing interactive 2 way audio and visual telecommunication technology. Consent: Verbal consent was obtained from the patient and/or family for this encounter. Total time spent in telemedicine encounter: I spent 15 minutes reviewing clinical data and/or imaging, obtaining history, examining the patient, communicating with the onsite care team, and in preparation of this report. Electronically signed at 01/22/2025 00:13 ([place] Time) by Lauro Gonzáles MD Yes LAURO GONZÁLES MD Jan 22, 2025 00:14
[2025-01-22 00:17] LABS: BUN/Creatinine Ratio 12.1 (10.0-20.0); INR 1.25 (0.9-1.15); Partial Thromboplastin Time 34.9 SEC (24.5-34.5)
[2025-01-22 00:33] LABS: Band Neutrophils % (manual) 6; Eosinophils % (manual) 6 (0-7); Lymphocytes % (manual) 13 (10.0-50.0); Monocytes % (manual) 1 (0-12); Stomatocytes Few
[2025-01-22 00:34] LABS: Platelet Estimate Decreased
[2025-01-22 00:35] LABS: Alkaline Phosphatase > 2300 U/L (46-116)
[2025-01-22] MEDS: levETIRAcetam 1500 mg/100ml 100 ML IV ONE (00:36)
[2025-01-22] MEDS ORDERED: IOHEXOL 350 MG/ML 100ML IJ ONE (01:40)
--- NOTE | 2025-01-22 03:43 | PRN ---
Misceleneous Note Note Note Patient presented seizure-like activity, evaluated the patient at bedside who is seen postictal, GSC 13/15, with her previous residual left sided weakness. Started patient on IV Keppra and Ativan p.r.n.. Ordered head CT which showed left subarachnoid/cortical frontal lobe bleed. Consulted Neurology (Dr. Dc) through [facility] who suggested repeat head CT with and without contrast [address] head [address], optimize platelets 2 above 100, monitor blood pressure and increase dose of Keppra from her normal home dose (load with 2 g of Keppra and maintenance of 750 mg IV Q 12 hours). Neurologist recommended to transfer if brain bleed worsens or with the presence of aneurysms. She continues on ICU status, with IV vasopressors. Patient has poor prognosis. DERICK NAIR RESIDENT Jan 22, 2025 03:43
[2025-01-22 04:06] LABS: Hemoglobin 9.2 g/dL (12.2-16.2)
[2025-01-22 04:09] LABS: Hematocrit 28.7 % (36.0-46.0); Mean Corpuscular Hgb Conc. 32.1 g/dL (32.0-36.0); Mean Corpuscular Volume 93.4 fL (80.0-100.0); Platelet Count (auto) 50 10^3/uL (140-450); Red Blood Cells 3.07 10^6/uL (4.0-5.20); Red Cell Distribution Width 19.1 % (11.8-14.3)
[2025-01-22 04:16] LABS: Basophils % (manual) 0 (0.0-2.0); Blast Cells 0; Metamyelocytes % 0; Myelocytes % 0; Promyelocytes % 0; Reactive Lymphocytes 0
[2025-01-22 04:45] LABS: Anion Gap 8 (5-15); Blood Urea Nitrogen 19 mg/dL (9-23); Calcium 9.5 mg/dL (8.7-10.4); Carbon Dioxide 26 mmol/L (20-31); Glucose 93 mg/dL (74-106); Magnesium 1.6 mg/dL (1.6-2.6)
[2025-01-22 04:57] LABS: BUN/Creatinine Ratio 12.9 (10.0-20.0)
[2025-01-22 04:58] LABS: Alanine Aminotransferase 526 U/L (7-40); Albumin 2.8 g/dL (3.2-4.8); Alkaline Phosphatase > 2300 U/L (46-116); Aspartate Aminotransferase 810 U/L (13-40); Bilirubin, Total 10.4 mg/dL (0.2-1.0); Chloride 112 mmol/L (98-107); Potassium 3.4 mmol/L (3.5-5.1); Sodium 146 mmol/L (136-145); Total Protein 6.6 g/dL (5.7-8.2)
--- NOTE | 2025-01-22 04:58 | DVH ---
EXAM: CT HEAD W WO CONTRAST INDICATION: F/U LAST CT, R/O ANEURYSM TECHNIQUE: CT of the head without and with intravenous contrast. Radiation Dose : 1. Head: CT Dose: CTDI volume is 52 mGy. Dose-length product is 2070 mGy*cm The dose indicators for CT are the volume Computed Tomography (CT) Dose Index (CTDIvol) and the Dose Length Product (DLP), and are measured in units of mGy and mGy-cm, respectively. These indicators are not patient dose, but values generated from the CT scanner acquisition factors. The report includes radiation exposure data for exposures received during this examination. COMPARISON: CT HEAD WITHOUT CONTRAST on DOS: 01/21/25, CT HEAD WITHOUT CONTRAST on DOS: 01/19/25 FINDINGS: Redemonstration of small area of hyperattenuation in the left lateral frontal lobe possibly represent ing small volume subarachnoid hemorrhage. Right frontal encephalomalacia. Right supraclinoid ICA and right MCA again noted to be dysplastic in appearance measuring 0.6 cm. The ventricles, sulci and cisterns are age appropriate. The may-white differentiation is intact. Patchy periventricular and subcortical white matter hypoattenuation is nonspecific but may be related to small vessel ischemic disease. The visualized paranasal sinuses and mastoid air cells are clear. The surrounding soft tissues and osseous structures are unremarkable. IMPRESSION: Redemonstration of small area of hyperattenuation in the left lateral frontal lobe possibly represent ing small volume subarachnoid hemorrhage. Right frontal encephalomalacia. Right supraclinoid ICA and right MCA again noted to be dysplastic in appearance measuring 0.6 cm. Radiation optimization: All CT scans at this facility use at least one of these dose optimization isis hniques: automated exposure control mA and/or kV adjustment per patient size (includes targeted exam s where dose is matched to clinical indication) or iterative reconstruction.
[2025-01-22 05:18] LABS: Band Neutrophils % (manual) 1; Eosinophils % (manual) 4 (0-7); Lymphocytes % (manual) 26 (10.0-50.0); Monocytes % (manual) 3 (0-12)
[2025-01-22 05:19] LABS: Platelet Estimate Decreased; Stomatocytes Moderate
--- NOTE | 2025-01-22 05:32 | DVH ---
EXAM: XR Chest, 1 View CLINICAL INDICATION: sob TECHNIQUE: Frontal view of the chest. COMPARISON: XY CHEST PORTABLE on DOS: 01/19/25 FINDINGS: LUNGS AND PLEURAL SPACES: Right airspace disease of the lower lung field, likely pneumonia. This hewitt s increased since the prior exam. No pneumothorax. HEART: Unremarkable. No cardiomegaly. MEDIASTINUM: Unremarkable. Normal mediastinal contour. BONES/JOINTS: Unremarkable. No acute fracture. OTHER FINDINGS: . IMPRESSION: Right airspace disease of the lower lung field, likely pneumonia. This has increased since the prior exam.
[2025-01-22] MEDS ORDERED: POTASSIUM CHL 20 Meq TABLET PO ONE (06:15)
[2025-01-22] MEDS: POTASSIUM CHL 20MEQ/50ML 50 ML IV SCH (06:31)
[2025-01-22 06:59] LABS: Base Excess -1.4 mmol/L (-2.0-3.0)
--- NOTE | 2025-01-22 07:29 | BSKYNEURO ---
Addendum HCT viewed redemonstration small area hyperattentuation L lateral frontal possible small SAH, R frontal encephalomalacia. CTA head/neck R supraclinoid ICA and R MCA again noted to be dysplastic measuring 0.6. No aneurysm. Addendum added and electronically signed at 01/22/2025 07:24 ( Time) by Rosales Welch MD [facility] Note # Demographics Consult Type: Follow-Up Phone Call Patient Location: Inpatient First Name: AMELIE Last Name: ANNEMARIE Date of : 1990 Age: 34 Gender: Female Facility: [facility] Time of Initial Page (): 01/22/2025 06:13 Time of Return Call (): 01/22/2025 06:13 Phone Agreement: - phone consult deemed mutually sufficient for patient care # HPI History: 34 yo F seizure, HCT showing trace, possible SAH. Saw Dr. Alvares, neurology, repeat HCT wwo con, redemonstration small area hypera ttentuation L lateral frontal possible small SAH, R frontal encephalomalacia, R supraclinoid ICA and R MCA again noted to be dysplastic measuring 0.6. No aneurysm. Keppra started. Discussed 735 pm Per neurology earlier: "Impression: Seizure in setting of septic shock Trace left frontal subarachnoid blood Thrombocytopenia # Plan Thrombolytic/Intervention: NOT IV Thrombolysis or IA Intervention candidate Target Blood Pressure: SBP < 140 Imaging: (urgency: STAT): CTA head/neck and repeat CT head at 4 hours from prior study Medication: Keppra 2g x1, increase standing dose to 750mg BID Hemorrhage Reversal: Platelets, target > 100K in setting of acute subarachnoid blood Other: - If patient has any neurological deterioration please call me back immediately - seizure precautions - telemetry monitoring - I have discussed my recommendations with the referring provider Additional Recommendations: Close neuromonitoring If aneurysm present on CTA head, would transfer for higher level of care # Assessment Impression: - Subarachnoid Hemorrhage PHONE CALL Repeat HCT with no change, small subarrachnoid hemorrhage and will continue with a plan per Dr Alvares which includes having a patient on Keppra 750 mg BID and blood pressure control, please see the note from Dr. Alvares for full recommendations. I also recommended reaching out to neurosurgery to have them review imaging as well, SAH is small and stable. Repeat HCT in 23 hours. Platelets for thrombocytopenia (current platelet [id number]) are being given, repeat platelet lab 1 hour after giving platelets, and again 12 hours later. Would consider a hematology consultation as well given the patient's thrombocytopenia. Repeat # Plan Thrombolytic/Intervention: NOT IV Thrombolysis or IA Intervention candidate Thrombolytic/Intraarterial Exclusion: - IV thrombolytic and IA intervention considered but not recommended as this patient's symptoms are not clinically consistent with an assumed diagnosis of stroke Target Blood Pressure: - SBP 130-150 Labs: repeat platelet count testing 1 hour after giving platelets, and again 12 hour later, fortunately last platelet count was >50,000 Imaging: (urgency: routine): Repeat head CT in 24 hours. Medication: Giving platelets now. Avoid aspirin, NSAIDs. Continue Keppra 750 mg twice daily. Other: - If patient has any neurological deterioration please call me back immediately - consult neurosurgery # Logistics Attestation of consult completion: The patient is located at: [facility]. I performed this phone consultation from my offsite office Total time spent in telemedicine encounter: I spent 10 minutes in reviewing clinical data and/or imaging, obtaining history, communicating with the onsite care team, and in preparation of this report. # Demographics First Name: AMELIE Last Name: ANNEMARIE Facility: [facility] Electronically signed at 01/22/2025 07:22 ([place] Time) by Rosales Welch MD Yes ROSALES WELCH MD Jan 22, 2025 07:29
[2025-01-22] MEDS ORDERED: levETIRAcetam 500 mg/100ml 100 ML IV SCH ×2 (10:00)
[2025-01-22 11:00] LABS: Hepatitis A Ab IgM Negative; Hepatitis B Core IgM Negative (Negative); Hepatitis B Surface Antigen Negative (Negative); Hepatitis C Antibody Negative (Negative)
[2025-01-22 11:08] LABS: Baso (Absolute) 0.1 x10E3/uL (0.0-0.2); Basos 1 % (Not Estab.); Eos 2 % (Not Estab.); Eos (Absolute) 0.3 x10E3/uL (0.0-0.4); Hematocrit 32.5 % (34.0-46.6); Hematology Comments: Note: (.); Immature Granulocytes (Abs) 0.2 x10E3/uL (0.0-0.1); Lymphs 9 % (Not Estab.); Lymphs (Absolute) 1.1 x10E3/uL (0.7-3.1); MCH 28.3 pg (26.6-33.0); MCHC 30.8 g/dL (31.5-35.7); MCV 92 fL (79-97); Monocytes 5 % (Not Estab.); Monocytes (Absolute) 0.7 x10E3/uL (0.1-0.9); Neutrophils 82 % (Not Estab.); Neutrophils (Absolute) 10.8 x10E3/uL (1.4-7.0); Nucleated Red Blood Cells 3 % (0 - 0); Platelets 61 x10E3/uL (150-450); RBC 3.53 x10E6/uL (3.77-5.28); RDW 20.1 % (11.7-15.4); WBC 13.1 x10E3/uL (3.4-10.8)
[2025-01-22] MEDS: levETIRAcetam INJ 750 MG in SODIUM CHL 0.9% 100 ML IV SCH (11:55)
--- NOTE | 2025-01-22 12:25 | DVHPN2 ---
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 Patient has nausea and vomiting, and admits to having three episodes of hematemesis yesterday. No nausea vomiting at this time. No reports of melena or red blood in stool, Patient denies alcohol use. Patient admits to not taking any medications at this time, Patient unaware that she had liver problems in the past. Patient unsure when her eyes had turned yellowish. Objective vital signs Vital Sign Date Time Temp Pulse Resp B/P (MAP) Pulse Ox O2 Delivery O2 Flow Rate FiO2 01/22/25 11:45 97.5 80 17 105/73 (84) 100 97.5 01/22/25 10:00 Nasal Cannula* 2 28 Total Intake and Output 01/21/25 01/21/25 01/22/25 14:59 22:59 06:59 Intake Total 665.114 ml 730.740 ml 1193.191 ml Output Total 600 ml 250 ml 1050 ml Balance 65.114 ml 480.740 ml 143.191 ml medications Current Medications Medications Dose Ordered Sig/Dorota Route Start Time Stop Time Status Last Admin Dose Admin Octreotide Acetate 500 mcg/ Sodium Chloride 100 ml @ 10 mls/hr Q10H IV 01/20/25 06:00 01/22/25 11:36 10 MLS/HR Ondansetron HCl 4 mg Q4HP PRN IV 01/20/25 12:00 01/20/25 20:14 4 MG Nitroglycerin 0.4 mg Q5MINP PRN SL 01/20/25 12:00 Morphine Sulfate 2 mg Q30M PRN IV 01/20/25 12:00 Vancomycin HCl 0 ml @ 0 mls/hr UD IV 01/20/25 12:15 Vasopressin 20 units/Sodium Chloride 100 ml @ 9 mls/hr Q11H7M IV 01/20/25 15:45 01/22/25 00:36 9 MLS/HR Norepinephrine Bitartrate 32 mg/ Sodium Chloride 250 ml @ 0.938 mls/ hr Q24H IV 01/20/25 19:15 01/21/25 09:50 10.313 MLS/HR Doxycycline Hyclate 100 ml @ 50 mls/hr Q12H IV 01/21/25 10:30 01/22/25 10:44 50 MLS/HR Meropenem 50 ml @ 17 mls/hr Q12HR IV 01/21/25 22:00 01/21/25 22:52 17 MLS/HR Pantoprazole Sodium 40 mg BID IV 01/21/25 22:00 01/22/25 10:44 40 MG Albuterol 2.5 mg Q4HWA [facility] 01/21/25 22:00 01/22/25 10:26 2.5 MG Ipratropium [place] 0.5 mg Q4HWA [facility] 01/21/25 22:00 01/22/25 10:26 0.5 MG Lorazepam 1 mg Q5MINP PRN IV 01/21/25 22:45 Levetiracetam 100 ml @ 400 mls/hr BID IV 01/22/25 10:00 Cancel Levetiracetam 750 mg/Sodium Chloride 107.5 ml @ 430 mls/hr Q12H IV 01/22/25 11:00 01/22/25 11:55 430 MLS/HR Examination General Appearance: Oriented x3 HEENT: Jaundice bilateral eyes Respiratory: Normal air movement Cardiovascular: Regular rate, Normal S1, Normal S2 Abdominal: Normal bowel sounds, distended, hepatospenomegaly, tender. Extremities: left sided weakness Neuro: slurred speech from previous CVA, difficulty ambulating at baseline from previous CVA uses a walker. laboratory and microbiology Laboratory Tests 01/22/25 07:55 01/22/25 03:30 Test 01/22/25 03:30 Range/Units Serum Glucose 93 74-106 mg/dL Microbiology Date/Time Source Procedure Growth Status 01/21/25 10:35 Voided Urine Urine Culture - Preliminary Resulted 01/21/25 10:27 Blood Blood Culture - Preliminary NO GROWTH AFTER 24 HOURS OF INCUBATION. Resulted 01/20/25 13:37 Nose MRSA Screen - Final Complete Problem List/Assessment/Plan Problem List/Assessment/Plan # Acute Liver failure, possible secondary to hypoxic shock # septic shock # shock liver # Sepsis # HIV, # Transaminitis, # Hyperammonemia # Hyperbilirubinemia # Thrombocytopenia # UTI, # Acute kidney injury, Plan: - Abdominal ultrasound: Nonspecific gallbladder wall thickening at 0.5 cm with no ultrasound evidence of cholelithiasis or acute cholecystitis. - MATT- negative - USG shows nonspecific gallbladder wall thickening - patient is on two vasopressor -continue octreotide drip -Continue Protonix 40 I/V b.i.d. - Possible hepatitis - History of polysubstance abuse - Monitor lab Thank you so much for the opportunity to consult on your patient. GI team will follow the patient. In case of any questions or concerns please feel free to reach out. Case discussed with Dr. Leonides Sheldon. The patient and caregiver team agreed to the plan. Plan discussed with: Patient BARRERALUIS RESIDENT Jan 22, 2025 12:25
[2025-01-22 13:08] LABS: % CD 4 Pos Lymph 28.8 % (30.8-58.5); % CD 8 Pos Lymph 55.1 % (12.0-35.5); Absolute CD 4 Helper 317 /uL (359-1519); CD4/CD8 Ratio 0.52 (0.92-3.72)
--- NOTE | 2025-01-22 15:44 | DVH ---
MRI Abdomen, Pre and Post Contrast Exam Date: 01/22/2025 02:05 PM Comparison: Ultrasound abdomen limited dated 01/20/2025 History: transaminitis, r/o cholangitis Technique: Multisequence multiplanar MRI images were obtained of the abdomen without intravenous contrast. MRCP including 3D SPACE, Radial 2D slabs and SPACE 3D MIP images Findings: Bilateral lower lobe airspace disease. Trace bilateral pleural effusions. Liver: The liver is normal in size without focal lesions. Normal liver contour. Spleen: Unremarkable. Pancreas: The pancreas is normal in appearance without focal lesions. Gallbladder and ducts: Gallbladder is mildly distended. Mild pericholecystic edema. Gallbladder wall is not thickened. The cystic duct, right and left hepatic ducts, common hepatic duct, and common bi le ducts are unremarkable. The pancreatic duct is within normal limits. Adrenal glands: Unremarkable. Kidneys: Normal enhancement without suspicious lesions or hydronephrosis. Visualized bowel: Grossly unremarkable. Vasculature: Unremarkable. Lymphadenopathy: No evidence for lymphadenopathy. Ascites: No ascites. Mild body wall edema. Musculoskeletal: Bone marrow signal is normal. IMPRESSION: Gallbladder is mildly distended with mild pericholecystic edema. No biliary duct dilation or secondar y signs of cholecystitis or choledocholithiasis. Multifocal bilateral lower lobe airspace disease, partially imaged. Trace bilateral pleural effusions and body wall edema. Findings may represent a component of 3rd spac ing.
[2025-01-22] MEDS: MEROPENEM 1GM IVPB 50 ML IV SCH (15:55)
[2025-01-22] MEDS: IBUPROFEN 800 MG TAB PO ONE (19:12)
--- NOTE | 2025-01-22 19:36 | DVHDSRES ---
Discharge Summary Date of Admission Resident Creating Document: KELLI DE ANDA RESIDENT Jan 20, 2025 at 11:46 Date of Discharge: Jan 22, 2025 Admitting Diagnosis septic shock due to pneumonia Labs/Diagnostic Data: Laboratory Results Test 01/22/25 11:08 01/22/25 07:55 01/22/25 06:54 01/22/25 03:30 Platelet Count 71 10^3/uL (140-450) Blood Gas Specimen Type Arterial Blood Gas Sample Site Left radial Blood Gas Patient Temperature 37.0 Arterial Blood Date Drawn [id number] Arterial Blood pH 7.353 (7.350-7.450) Arterial Blood Partial Pressure CO2 44.4 mmHg (32.0-45.0) Arterial Blood Partial Pressure O2 95.2 mmHg (83.0-108.0) Arterial Blood HCO3 24.1 mmol/L (21.0-28.0) Arterial Blood Oxygen Saturation 96.5 % (94.0-98.0) Arterial Blood Base Excess -1.4 mmol/L (-2.0-3.0) Arterial Blood Oxyhemoglobin 94.3 % (94.0-98.0) Arterial Blood Carboxyhemoglobin 2.0 % (0.5-1.5) Arterial Blood Methemoglobin 0.3 % (0.0-1.5) Giorgio Test Yes Blood Gas Total Hemoglobin 9.40 g/dL (12.0-16.0) Blood Gas Liter Flow 2.00 Blood Gas Modality Nasal cannula FiO2 % 28.0 White Blood Count 8.0 10^3/uL (4.4-10.8) Red Blood Count 3.07 10^6/uL (4.0-5.20) Hemoglobin 9.2 g/dL (12.2-16.2) Hematocrit 28.7 % (36.0-46.0) Mean Corpuscular Volume 93.4 fL (80.0-100.0) Mean Corpuscular Hemoglobin 30.0 pg (28.0-32.0) Mean Corpuscular Hemoglobin Concent 32.1 g/dL (32.0-36.0) Red Cell Distribution Width 19.1 % (11.8-14.3) Mean Platelet Volume 8.7 fL (6.9-10.8) Neutrophils (%) (Auto) % (37.0-80.0) Lymphocytes (%) (Auto) % (10.0-50.0) Monocytes (%) (Auto) % (0.0-12.0) Basophils (%) (Auto) % (0.0-2.0) Neutrophils # (Auto) 10 ^3/uL (1.6-8.6) Lymphocytes # (Auto) 10 ^3/uL (0.4-5.4) Monocytes # (Auto) 10 ^3/uL (0-1.3) Differential Total Cells Counted 100.0 (100) Neutrophils % (Manual) 66 (37.0-80.0) Band Neutrophils % (Manual) 1 Lymphocytes % (Manual) 26 (10.0-50.0) Monocytes % (Manual) 3 (0-12) Eosinophils % (Manual) 4 (0-7) Basophils % (Manual) 0 (0.0-2.0) Metamyelocytes % (manual) 0 Myelocytes % (Manual) 0 Promyelocytes % (Manual) 0 Blast Cells % (Manual) 0 Nucleated Red Blood Cells 3.0 % Reactive Lymphocytes 0 Platelet Estimate Decreased Stomatocytes Moderate Sodium Level 146 mmol/L (136-145) Potassium Level 3.4 mmol/L (3.5-5.1) Chloride Level 112 mmol/L (98-107) Carbon Dioxide Level 26 mmol/L (20-31) Anion Gap 8 (5-15) Blood Urea Nitrogen 19 mg/dL (9-23) Creatinine 1.47 mg/dL (0.550-1.02) Glomerular Filtration Rate Calc 48 mL/min (>90) BUN/Creatinine Ratio 12.9 (10.0-20.0) Serum Glucose 93 mg/dL (74-106) Lactic Acid Level 1.0 mmol/L (0.4-2.0) Calcium Level 9.5 mg/dL (8.7-10.4) Magnesium Level 1.6 mg/dL (1.6-2.6) Total Bilirubin 10.4 mg/dL (0.2-1.0) Aspartate Amino Transferase (AST) 810 U/L (13-40) Alanine Aminotransferase (ALT) 526 U/L (7-40) Alkaline Phosphatase > 2300 U/L (46-116) Ammonia 37 umol/L (11-32) Total Protein 6.6 g/dL (5.7-8.2) Albumin 2.8 g/dL (3.2-4.8) Vitamin B12 Level 2908 pg/mL (211-911) Vitamin D 25-Hydroxy 17.1 ng/mL (30.0-100) Thyroid Stimulating Hormone (TSH) 0.29 uIU/mL (0.55-4.78) Random Vancomycin Level 6.9 ug/mL (5-10) Test 01/21/25 23:04 01/21/25 20:17 01/21/25 18:45 01/21/25 10:46 Prothrombin Time 13.0 sec (9.3-11.8) Prothrombin Time INR 1.25 (0.9-1.15) Activated Partial Thromboplast Time 34.9 SEC (24.5-34.5) Creatine Kinase 50 U/L (34-145) Blood Gas EPAP 5 Blood Gas IPAP 14 Blood Gas Critical Value Read Back Yes Blood Gas Notified Whom leonardo Badillo md Blood Gas Notified Time [id number] Blood Gas Notified By sahra Moura rrt Influenza Type A Antigen Negative (Negative) Influenza Type B Antigen Negative (Negative) SARS-CoV-2 Antigen (Rapid) Negative (NEGATIVE) Test 01/21/25 10:35 01/21/25 10:27 01/21/25 05:52 01/20/25 15:04 Urine Creatinine 72.04 mg/dL (30.0-125.0) Urine Sodium 126 mmol/L (40-220) Eosinophils (%) (Auto) 2 % (Not Estab.) Absolute Neutrophils (auto) 10.8 x10E3/uL (1.4-7.0) Absolute Lymphocytes (auto) 1.1 x10E3/uL (0.7-3.1) Absolute Monocytes (auto) 0.7 x10E3/uL (0.1-0.9) Absolute Eosinophils (auto) 0.3 x10E3/uL (0.0-0.4) Absolute Basophils (auto) 0.1 x10E3/uL (0.0-0.2) Immature Granulocytes % 1 % (Not Estab.) Immature Granulocytes # 0.2 x10E3/uL (0.0-0.1) Immature Blood Cells (.) Reticulocyte Count (auto) 1.58 % (0.5-1.5) Hematology Comments Note: (.) Percent CD4 Cells 28.8 % (30.8-58.5) Absolute CD4 Count 317 /uL (359-1519) T-Lymphocyte CD4/CD8 Ratio 0.52 (0.92-3.72) Percent CD8 Cells 55.1 % (12.0-35.5) Absolute CD8 Count 606 /uL (109-897) Direct Bilirubin 8.5 mg/dL (<0.3) Lactate Dehydrogenase 545 U/L (120-246) Beta HCG, Quantitative 0.2 mIU/mL (1.5-4.2) Anti-Nuclear Antibody Screen Negative (Negative) Test 01/20/25 13:01 01/20/25 08:06 01/20/25 08:01 01/19/25 23:15 POC Glucose 142 mg/dl (70-106) Venous Blood pH 7.258 (7.320-7.430) Venous Blood pCO2 at Patient Temp 59.1 mmHg (38.0-54.0) Venous Blood pO2 at Patient Temp 38.9 mmHg (23.0-48.0) Venous Blood HCO3 25.8 mmol/L (22.0-29.0) Venous Blood Base Excess -2.5 mmol/L (-2.0-3.0) Blood Gas Comments Troponin I High Sensitivity 70 ng/L (</=34) Salicylates Level < 3.0 mg/dL (-30) Acetaminophen Level 8.0 UG/ML (10.0-20.0) Plasma/Serum Blood Alcohol < 3.0 mg/dL (<10) Hepatitis A IgM Antibody Negative Hepatitis B Surface Antigen Negative (Negative) Hepatitis B Core IgM Antibody Negative (Negative) Hepatitis C Antibody Negative (Negative) Urine Color Dark-yellow (Yellow) Urine Clarity Turbid (Clear) Urine pH 6.0 (5.0-9.0) Urine Specific [place] 1.017 (1.001-1.035) Urine Protein 1+ (Negative) Urine Ketones Negative (Negative) Urine Blood 2+ /uL (Negative) Urine Nitrite Negative (Negative) Urine Bilirubin 2+ (Negative) Urine Urobilinogen Normal mg/dL (Negative) Urine Leukocyte Esterase Negative /uL (Negative) Urine RBC 97 /hpf (0 - 4) Urine Microscopic WBC 5 /HPF (0-5) Urine Squamous Epithelial Cells Few /hpf (<5) Urine Calcium Oxalate Crystals Few (None Seen) Urine Bacteria Few /hpf (None Seen) Urine Hyaline Casts Few /lpf (0 - 2) Urine Mucus Few (None Seen) Urine Glucose Normal mg/dL (Normal) Urine Test Negative (Negative) Urine Opiates Screen Neg (NEGATIVE) Urine Fentanyl Screen Neg (NEGATIVE) Urine Barbiturates Screen Neg (NEGATIVE) Urine Phencyclidine Screen Neg (NEGATIVE) Urine Amphetamines Screen Neg (NEGATIVE) Urine Benzodiazepines Screen Neg (NEGATIVE) Urine Cocaine Screen Neg (NEGATIVE) Urine Cannabinoids Screen Neg (NEGATIVE) Test 01/19/25 15:53 Anisocytosis (manual) Slight B-Type Natriuretic Peptide 223.92 pg/mL (0-100) Lipase 36 U/L (12-53) Other Laboratory Tests 01/22/25 07:55 01/22/25 03:30 Brief Hx & Hospital Course: This is a 34-year-old female who was brought to the ER for generalized weakness. 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 Farida brought her to the hospital because she noticed she was becoming week, lethargic, not eating, or drinking well for the last couple of days. The patient was alert and oriented to self and where she is. In the ER patient was found to be in acute liver failure, hypotensive, hypothermic, hyperbilirubinemia, transaminitis, and septic. Patient states she has been homeless for a while prior to staying with her friend. States she did not know that she had any liver problems and has never been treated for her liver prior. States she has been taking her HIV medication for years. Patient states she has an uncle and 2 sisters. However, she does not have a phone and she does not know their phone numbers. Farida states that she has never know her to be a drinker, states she use to use methamphetamines, but it has been almost a year since she has used as far as she knows. On my initial assessment, patient continues to be on Levophed and vasopressin, she is on nasal cannula at 2 L saturating well above 92%, under vital signs were unremarkable. Patient was initially given IV fluids, broad-spectrum antibiotics, cultures were obtained, CMP revealed severely elevated LFTs, GI doctor was consulted. A head CT demonstrated an old infarct in the insula/right frontal lobe. On further questioning, patient stated that she does see an infectious disease doctor down the [place], name is Dr. Daniel, she stated that the last time she saw him was around six months ago, patient stated that he has also her primary care doctor. Patient states being compliant with her medications. Denies any recent travel. She stated that she had a blood transfusion last year denies any other blood transfusions. Reviewed records from [facility], placed on chart: 01/07/25: CD4: 198, 12/18/24: Viral load: 270, RPR 1:4. Infectious disease doctor following Patient is currently only complaining of mild shortness of breath, denies any chest pain, cough, fevers, chills, significant weakness, numbness, headaches, visual changes, dizziness, lightheadedness, sore throat, abdominal pain, nausea, vomiting. Patient does stated that she feels a dry mouth. Patient continued on broad-spectrum antibiotics with meropenem, vancomycin and doxycycline IV, this was for her septic shock due to pneumonia. She continued to be on nasal cannula 2 L however later on the evening of January 21 she started to have desaturations, she was placed on BiPAP. During this time patient has had a seizure-like activity, she was reassessed, a head CT was ordered with show a small subarachnoid hemorrhage/cortical. We will consulted tele neurologist, which recommended a repeat head CT in 6 hours with contrast. Patient was placed on Keppra in the meantime, the repeat head CT redemonstrated a small subarachnoid hemorrhage on the left frontal lobe lateral part, it was also noted that patient platelets were low at 50,000. Patient has had [place] [address] At this time we spoke to a 2nd neurologist which recommended the patient to be assessed by a neurosurgeon due to possibility of aneurysmal bleed. At this time we ordered two more bags of platelets to reach the cut off of [id number]. We immediately contacted social media marketing specialist to start transferred to higher level care for the patient to be assessed by neurosurgeon given her hemorrhagic. We spoke to Pawel Garcia on [facility], patient was accepted at [facility]. Patient has had an MRCP performed after her pacemaker was placed on safe mood, it continued to reveal pericholecystic edema no other significant abnormality of the biliary system. LFTs continued to trend down. Patient remained on nasal cannula, she continued to complain about weakness, however she was now alert and oriented x3, following commands, GCS 14, she was tolerating soft mechanical diet. Current Physical examination as below: General: Awake, alert, in mild distress due to SOB. HEENT: Head is normocephalic and atraumatic. Pupils are equal, round, miotic and reactive to light. Intraoral exam shows dry mucous membranes with no tonsillar enlargement or exudate. Neck: Supple with no cervical lymphadenopathy. Heart: Regular rate without murmur, rub, or gallop. Lungs: Bilateral crackles, most prominent on right-side Abdomen: No external sign of injury. Bowel sounds are present. Abdomen is soft, moderate tenderness to palpation on RUQ, RLQ, broderick (-), mcburney (+), rebound (-) Extremities: faint peripheral pulses. There is no clubbing, no cyanosis, and mild nonpitting edema in both lower extremities. Skin: Generalized Jaundice Neurologic: Cranial nerves II-XII intact. left sided deficits, weakness 2/5 on left, 4/5 on right. Asterixis (+) Patient will be transferred to higher level of care at [facility], I have spoken with the welding systems and equipment repairer of the unit and she accepted our patient, i have signed the DC paperwork. dania verbalized understanding and agree with the plan, we also debriefed her friend Haven. Case was discussed with Dr. Badillo Consults/Reason for consult ID was consulted due to HIV GI was consulted due to liver shock Operations or Procedures [address] [address] Ph: [phone] DIAGNOSTIC IMAGING Diagnostic Imaging Report : [id number] Signed PATIENT: AMELIE SHARPE ACCT: [id number] UNIT: [id number] : 1990 LOC: ICU [place] ROOM / BED: 0108-CC / A AGE / SEX: 34 / F ADM STATUS: ADM IN SERVICE 1259 ORDERING PHYSICIAN: KELLI DE ANDA RESIDENT PROCEDURE(s): MRCP - MRCP MRI REASON: transaminitis, r/o cholangitis ORDER NUMBER(s): [id number], ACCESSION NUMBER(s): [id number] MRI Abdomen, Pre and Post Contrast Exam Date: 01/22/2025 02:05 PM Comparison: Ultrasound abdomen limited dated 01/20/2025 History: transaminitis, r/o cholangitis Technique: Multisequence multiplanar MRI images were obtained of the abdomen without intravenous contrast. MRCP including 3D SPACE, Radial 2D slabs and SPACE 3D MIP images Findings: Bilateral lower lobe airspace disease. Trace bilateral pleural effusions. Liver: The liver is normal in size without focal lesions. Normal liver contour. Spleen: Unremarkable. Pancreas: The pancreas is normal in appearance without focal lesions. Gallbladder and ducts: Gallbladder is mildly distended. Mild pericholecystic edema. Gallbladder wall is not thickened. The cystic duct, right and left hepatic ducts, common hepatic duct, and common bile ducts are unremarkable. The pancreatic duct is within normal limits. Adrenal glands: Unremarkable. Kidneys: Normal enhancement without suspicious lesions or hydronephrosis. Visualized bowel: Grossly unremarkable. Vasculature: Unremarkable. Lymphadenopathy: No evidence for lymphadenopathy. Ascites: No ascites. Mild body wall edema. Musculoskeletal: Bone marrow signal is normal. IMPRESSION: Gallbladder is mildly distended with mild pericholecystic edema. No biliary duct dilation or secondary signs of cholecystitis or choledocholithiasis. Multifocal bilateral lower lobe airspace disease, partially imaged. Trace bilateral pleural effusions and body wall edema. Findings may represent a component of 3rd spacing. ATED BY: JACKSON HENRY MD DICTATED DATE/TIME: 01/22/251540 SIGNED BY: JACKSON HENRY MD SIGNED DATE/TIME: 01/22/251540 CC: [address] [address] Ph: [phone] DIAGNOSTIC IMAGING Diagnostic Imaging Report : [id number] Signed PATIENT: AMELIE SHARPE ACCT: [id number] UNIT: [id number] : 1990 LOC: ICU [place] [facility] / BED: [facility]- / A AGE / SEX: 34 / F ADM STATUS: ADM IN SERVICE ORDERING PHYSICIAN: DERICK NAIR RESIDENT PROCEDURE(s): HDCT - HEAD W WO CONTRAST REASON: F/U LAST CT, R/O ANEURYSM ORDER NUMBER(s): [id number], ACCESSION NUMBER(s): [id number] EXAM: CT HEAD W WO CONTRAST INDICATION: F/U LAST CT, R/O ANEURYSM TECHNIQUE: CT of the head without and with intravenous contrast. Radiation Dose : 1. Head: CT Dose: CTDI volume is 52 mGy. Dose-length product is 2070 mGy*cm The dose indicators for CT are the volume Computed Tomography (CT) Dose Index (CTDIvol) and the Dose Length Product (DLP), and are measured in units of mGy and mGy-cm, respectively. These indicators are not patient dose, but values generated from the CT scanner acquisition factors. The report includes radiation exposure data for exposures received during this examination. COMPARISON: CT HEAD WITHOUT CONTRAST on DOS: 01/21/25, CT HEAD WITHOUT CONTRAST on DOS: 01/19/25 FINDINGS: Redemonstration of small area of hyperattenuation in the left lateral frontal lobe possibly representing small volume subarachnoid hemorrhage. Right frontal encephalomalacia. Right supraclinoid ICA and right MCA again noted to be dysplastic in appearance measuring 0.6 cm. The ventricles, sulci and cisterns are age appropriate. The may-white differentiation is intact. Patchy periventricular and subcortical white matter hypoattenuation is nonspecific but may be related to small vessel ischemic disease. The visualized paranasal sinuses and mastoid air cells are clear. The surrounding soft tissues and osseous structures are unremarkable. IMPRESSION: Redemonstration of small area of hyperattenuation in the left lateral frontal lobe possibly representing small volume subarachnoid hemorrhage. Right frontal encephalomalacia. Right supraclinoid ICA and right MCA again noted to be dysplastic in appearance measuring 0.6 cm. Radiation optimization: All CT scans at this facility use at least one of these dose optimization techniques: automated exposure control mA and/or kV adjustment per patient size (includes targeted exams where dose is matched to clinical indication) or iterative reconstruction. ATED BY: JACKSON HENRY MD DICTATED DATE/TIME: 01/22/25451 SIGNED BY: JACKSON HENRY MD SIGNED DATE/TIME: 01/22/25451 CC: [address] [address] Ph: [phone] DIAGNOSTIC IMAGING Diagnostic Imaging Report : [id number] Signed PATIENT: AMELIE SHARPE ACCT: [id number] UNIT: [id number] : 1990 LOC: [facility] ROOM / BED: [facility] / A AGE / SEX: 34 / F ADM STATUS: ADM IN SERVICE 38 ORDERING PHYSICIAN: DERICK NAIR PROCEDURE(s): HWOCT - HEAD WITHOUT CONTRAST REASON: r/o intracranial process, pt had seizure-like activity ORDER NUMBER(s): [id number], ACCESSION NUMBER(s): [id number] CT HEAD WITHOUT CONTRAST INDICATION: r/o intracranial process, pt had seizure-like activity COMPARISON: CT HEAD WITHOUT CONTRAST on DOS: 01/19/25 TECHNIQUE: CT of the head without intravenous contrast. RADIATION DOSE: CTDIvol: mGy, DLP: mGy*cm FINDINGS: Evidence of a small amount of localized subarachnoid/cortical hemorrhage in the left frontal lobe which was not present on the recent CT scan from 01/19/25. No evidence of acute infarct, extra-axial collection, mass effect, midline shift, herniation or hydrocephalus. Again noted is area of gliosis/old infarct in the right insula and frontal lobe. Moderate ventricular enlargement related to cerebral volume loss/ex-vacuo dilatation. Right supraclinoid ICA and right MCA again noted to be dysplastic in appearance. Visualized paranasal sinuses and mastoid air cells are clear. Soft tissues and osseous structures are unremarkable. Impression: Evidence of small amount of localized subarachnoid/cortical hemorrhage in left frontal lobe which was not present on the recent CT scan from 01/19/25. ATED BY: RAUDEL FERNANDEZ MD DICTATED DATE/TIME: 01/21/25 2079 SIGNED BY: RAUDEL FERNANDEZ MD SIGNED DATE/TIME: 01/21/256 CC: [address] [address] Ph: [phone] DIAGNOSTIC IMAGING Diagnostic Imaging Report : [id number] Signed PATIENT: AMELIE SHARPE ACCT: [id number] UNIT: [id number] : 1990 LOC: [facility] ROOM / BED: 1010-[facility] / A AGE / SEX: 34 / F ADM STATUS: ADM IN SERVICE 1453 ORDERING PHYSICIAN: KELLI DE ANDA PROCEDURE(s): RTLQD - RIGHT LOWER QUAD REASON: r/o appendicitis ORDER NUMBER(s): [id number], ACCESSION NUMBER(s): [id number] EXAM: US RIGHT LOWER QUAD CLINICAL HISTORY: r/o appendicitis COMPARISON: CT abdomen pelvis from 01/19/2025 TECHNIQUE: Real-time ultrasound of the right lower quadrant was performed utilizing a high resolution linear transducer. Findings and Impression: The appendix is not definitively visualized. Cannot exclude acute appendicitis. If clinically indicated, CT or MR may be useful for further evaluation. 2.0 x 1.1 x 1.1 cm lymph node in the right lower quadrant. No free fluid or free air noted within the right lower quadrant. 2.2 x 1.2 x 1.4 cm anechoic lesion adjacent to the right iliac vessels. Findings are nonspecific. No definite correlate on CT abdomen pelvis from 01/19/2025. ATED BY: NATACHA WARD DO DICTATED DATE/TIME: 01/21/25 1637 SIGNED BY: NATACHA WARD DO SIGNED DATE/TIME: 01/21/25 1637 CC: [address] [address] Ph: [phone] DIAGNOSTIC IMAGING Diagnostic Imaging Report : [id number] Signed PATIENT: AMELIE SHARPE ACCT: [id number] UNIT: [id number] : 1990 LOC: [facility] ROOM / BED: [facility] / A AGE / SEX: 34 / F ADM STATUS: ADM IN SERVICE 1304 ORDERING PHYSICIAN: SHAQUILLE AGARWAL,KELLI RESIDENT PROCEDURE(s): BLDVT - BiLat Lower DVT REASON: bilateral leg edema and pain, r/o dvt ORDER NUMBER(s): [id number], ACCESSION NUMBER(s): [id number] Bilateral lower extremity venous duplex Clinical History: bilateral leg edema and pain, r/o dvt Comparison: None Technique: Duplex Doppler evaluation of the deep venous systems of both lower extremities from the common femoral veins to the popliteal veins including color Doppler and spectral/pulsed waveform analysis was performed. Findings: RIGHT SIDE: The common femoral vein demonstrates appropriate compressibility and waveform variability. There is compressibility/patency of the great saphenous vein at the proximal thigh. The femoral vein demonstrates appropriate compressibility and waveform variability. The deep femoral vein demonstrates appropriate compressibility and waveform variability. The popliteal vein demonstrates appropriate compressibility and waveform variability. There is normal compressibility at the tibioperoneal trunk. LEFT SIDE: The common femoral vein demonstrates appropriate compressibility and waveform variability. There is compressibility/patency of the great saphenous vein at the proximal thigh. The femoral vein demonstrates appropriate compressibility and waveform variability. The deep femoral vein demonstrates appropriate compressibility and waveform variability. The popliteal vein demonstrates appropriate compressibility and waveform variability. There is normal compressibility at the tibioperoneal trunk. Prominent lymph node in the right groin measuring 1.2 cm in short axis. Impression: No right or left femoropopliteal venous thrombosis. Prominent lymph node in the right groin which is favored to be reactive. ATED BY: LINN RAMOS MD DICTATED DATE/TIME: 01/21/25 143 SIGNED BY: LINN RAMOS MD SIGNED DATE/TIME: 01/21/25 143 CC: [place] [address] Ph: [phone] DIAGNOSTIC IMAGING Diagnostic Imaging Report : [id number] Signed PATIENT: AMELIE SHARPE ACCT: [id number] UNIT: [id number] : 1990 LOC: [facility] ROOM / BED: [address] [place] [address] / AGE / SEX: 34 / F ADM STATUS: ADM IN SERVICE 21 ORDERING PHYSICIAN: GURVINDER MATHEW PROCEDURE(s): ABDL - ABDOMEN LIMITED REASON: elevated LFTs ORDER NUMBER(s): [id number], ACCESSION NUMBER(s): [id number] Procedure: US ABDOMEN LIMITED Study Date and Requested Time: 01/20/2025 02:31 PM History: elevated LFTs Comparison: CT abdomen and pelvis 01/19/2025 Technique: Multiple high resolution may-scale images obtained of the right upper quadrant of the abdomen with color Doppler for evaluation of blood flow and vascularity as indicated. Findings: Liver is borderline enlarged measuring up to 17 cm in length, with homogenous echotexture and normal contours. No evidence of focal hepatic lesions, intrahepatic or extrahepatic ductal dilatation. Common bile duct measures 0.3 cm in diameter. Nonspecific mild gallbladder wall thickening at 0.5 cm. Otherwise, the gallbladder is unremarkable with no evidence of cholelithiasis or pericholecystic free fluid. Negative sonographic Broderick's sign. Pancreas is unremarkable. Right kidney measures 10.3 cm in length, with normal contours, and cortical thickness. No evidence of hydronephrosis. 0.9 cm right renal lower pole cyst. Increased right renal cortical echogenicity. Partially visualized inferior vena cava is unremarkable. Impression: Right renal cortical echogenicity which may be from medical renal disease. Nonspecific gallbladder wall thickening at 0.5 cm with no ultrasound evidence of cholelithiasis or acute cholecystitis. ATED BY: ILIANA PINTO DO DICTATED DATE/TIME: 01/20/251551 SIGNED BY: ILIANA PINTO DO SIGNED DATE/TIME: 01/20/25 155 CC: [place] [address] Ph: [phone] DIAGNOSTIC IMAGING Diagnostic Imaging Report : [id number] Signed PATIENT: AMELIE SHARPE ACCT: [id number] UNIT: [id number] : 1990 LOC: OVERFLOW ROOM / BED: [address] [place], [place] [address]I / A AGE / SEX: 34 / F ADM STATUS: ADM IN SERVICE 1259 ORDERING PHYSICIAN: KELLI DE ANDA RESIDENT PROCEDURE(s): CX2CT - CHEST WITHOUT CONTRAST REASON: sob ORDER NUMBER(s): [id number], ACCESSION NUMBER(s): [id number] EXAM: CT CHEST WITHOUT CONTRAST History: sob Comparison Study: None available TECHNIQUE: Multidetector CT of the chest was performed. Imaging was performed without IV contrast. Axial, coronal, and sagittal multiplanar reformats were obtained from the axial data set by the technologist. Radiation Dose : CTDI vol 20.34 mGy, DLP 659.02 mGy*cm. Findings: Lungs: Right upper and bilateral lower lobe consolidations with air bronchograms. Pleura: Unremarkable Heart/Great vessels: No cardiomegaly or pericardial effusion. Mediastinum: Prominent mediastinal nodes. Soft tissues/Bones: Unremarkable The partially visualized upper abdomen is within normal limits. Impression: 1. Right upper and bilateral lower lobe consolidations with air bronchograms favoring an infectious/inflammatory etiology. 2. Prominent mediastinal nodes favored reactive. ATED BY: NATACHA WARD DO DICTATED DATE/TIME: 01/21/251515 SIGNED BY: NATACHA WARD DO SIGNED DATE/TIME: 01/21/251515 CC: [place] [id number] Ph: [phone] DIAGNOSTIC IMAGING Diagnostic Imaging Report : [id number] Signed PATIENT: AMELIE SHARPE ACCT: [id number] UNIT: [id number] : 1990 LOC: ER ROOM / BED: / AGE / SEX: 34 / F ADM STATUS: REG ER SERVICE 54 ORDERING PHYSICIAN: RYAN SÁNCHEZ DO PROCEDURE(s): HWOCT - HEAD WITHOUT CONTRAST REASON: ALOC ORDER NUMBER(s): [id number], ACCESSION NUMBER(s): [id number] CT HEAD WITHOUT CONTRAST INDICATION: ALOC COMPARISON: None TECHNIQUE: CT of the head without intravenous contrast. RADIATION DOSE: CTDIvol: 52.21 mGy, DLP: 1506.45 mGy*cm FINDINGS: There is no evidence of intracranial hemorrhage, acute infarct, extra-axial collection, mass effect, midline shift, herniation or hydrocephalus. There is an area of gliosis/old infarct in the right insula and frontal lobe. There is moderate ventricular enlargement related to cerebral volume loss/ex-vacuo dilatation. The right supraclinoid ICA and right MCA appear dysplastic. Visualized paranasal sinuses and mastoid air cells are clear. Soft tissues and osseous structures are unremarkable. IMPRESSION: No acute intracranial abnormality identified. Gliosis/old infarct in right insula and frontal lobe. ATED BY: RAUDEL FERNANDEZ MD DICTATED DATE/TIME: 01/19/252117 SIGNED BY: RAUDEL FERNANDEZ MD SIGNED DATE/TIME: 01/19/252117 CC: [place] [id number] Ph: [phone] DIAGNOSTIC IMAGING Diagnostic Imaging Report : [id number] Signed PATIENT: AMELIE SHARPE ACCT: [id number] UNIT: [id number] : 1990 LOC: ER ROOM / BED: / AGE / SEX: 34 / F ADM STATUS: REG ER SERVICE 54 ORDERING PHYSICIAN: RYAN SÁNCHEZ DO PROCEDURE(s): CXRP - CHEST PORTABLE REASON: gen weak, diarrhea, Jaundice ORDER NUMBER(s): [id number], ACCESSION NUMBER(s): [id number] CHEST RADIOGRAPH Indication: gen weak, diarrhea, Jaundice Technique: Single frontal view of the chest was obtained COMPARISON: None FINDINGS: Lines and Tubes: None Lungs: Clear Pleura: No effusion. No pneumothorax. Cardiomediastinal contours: Unremarkable Bones: Unremarkable IMPRESSION: No abnormality demonstrated. ATED BY: RAUDEL FERNANDEZ MD DICTATED DATE/TIME: 01/19/252316 SIGNED BY: RAUDEL FERNANDEZ MD SIGNED DATE/TIME: 01/19/252316 CC: [place] [id number] Ph: [phone] DIAGNOSTIC IMAGING Diagnostic Imaging Report : [id number] Signed PATIENT: AMELIE SHARPE ACCT: [id number] UNIT: [id number] : 1990 LOC: ER ROOM / BED: / AGE / SEX: 34 / F ADM STATUS: REG ER SERVICE 54 ORDERING PHYSICIAN: RYAN SÁNCHEZ DO PROCEDURE(s): ABPL - CT AB PEL WO CON-NO ORAL OR IV REASON: jaundice, elevated LFT, weak ORDER NUMBER(s): [id number], ACCESSION NUMBER(s): [id number] CT SCAN ABDOMEN AND PELVIS WITHOUT CONTRAST CLINICAL HISTORY: jaundice, elevated LFT, weak TECHNIQUE: Helical axial images are obtained from the lung bases through the pelvis without oral contrast. No intravenous contrast was administered. Coronal and sagittal reformatted images were generated from thin section reconstructions. One or more of the following radiation dose reduction techniques were used for this examination: automated exposure control, adjustment of the mA and/or kV according to patient size, use of iterative reconstruction technique. COMPARISON: None FINDINGS: LOWER THORAX: Small peripheral airspace opacities in the superior aspects of the posterior lower lobes. Scattered atelectasis/ scarring. ABDOMEN AND PELVIS: Evaluation of visceral and vascular structures is limited due to lack of contrast administration. As visualized, the unenhanced liver, spleen, pancreas and adrenals appear grossly unremarkable. The gallbladder is not clearly delineated and may be contracted or surgically absent. No appreciable biliary ductal dilatation. No hydroureteronephrosis or sizable, obstructing urinary tract calculi identified. Punctate left interpolar nephrolithiasis. No evidence of abdominal aortic aneurysm. Small hiatal hernia with distal esophageal thickening. No evidence of bowel obstruction. Visualized portions of the appendix appear normal caliber. No free intraperitoneal air or fluid identified. No sizable bladder calculus. Borderline enlarged bilateral inguinal lymph nodes. No destructive osseous lesions identified. Degenerative changes of the lower lumbar spine. IMPRESSION: No discrete hepatic lesions or biliary ductal dilatation appreciated on this noncontrast exam. Gallbladder is not clearly delineated and may be contracted or surgically absent. Ultrasound may be obtained to further evaluate. Small hiatal hernia with thickening of the distal esophagus. Small, patchy airspace opacities in the superior aspects of the imaged bilateral lower lobes. Correlate to exclude atypical infection. ATED BY: STEVE GELLER MD DICTATED DATE/TIME: 01/19/252148 SIGNED BY: STEVE GELLER MD SIGNED DATE/TIME: 01/19/252148 CC: Condition at Discharge: Guarded Final Diagnosis/Problems List Subarachnoid hemorrhage #Seizure activity #Septic shock likely due to pneumonia Gram-positive versus Gram-negative, rule out atypical infection #Acute hypoxic respiratory failure #Acute liver failure, shock liver, possibly related to underlying infection, rule out HIV causes, hepatitis #Hyperammonemia, improved #NSTEMI likely type 2 #RAJENDRA likely due to VMN, prerenal, rule out ATN #History of Syphilis #HIV, nonadherent #Anemia, normocytic normochromic #Thrombocytopenia, moderate #Secondary coagulopathy #H/o CVA (2021) #History of methamphetamine abuse #History of heavy smoking #Obesity Discharge Disposition: Acute Care Facility Discharge Instruct/Medications Diet: See Comment Diet comment: npo Activity: Bed rest Medications: as described in spreadsheet Discharge Statement: "Patient was advised to return to the ER or call 911 if any headaches, dizziness, shortness of breath, chest pain, abdominal pain, bleeding, fevers, or worsening of medical condition. Patient was counseled about treatment plan, medications, possible side effects, patientverbalized understanding. All questions were answered to the best of my ability. This discharge took greater then 30 minutes in planning, reviewing documentation, counseling the patient, and discussing with other team members." ASSESSMENT ASSESSMENT Assessment Subarachnoid hemorrhage Date of Service: Jan 22, 2025 Billing Provider: RAMAN BADILLO MD Common Visit Codes: 97249-FSU/OBS DISCH DAY >30min KELLI DE ANDA RESIDENT Jan 22, 2025 19:36 RAMAN BADILLO MD Jan 23, 2025 12:02
[2025-01-22] MEDS: IBUPROFEN 400 MG TAB PO ONE (20:38)
--- NOTE | 2025-01-22 20:43 | DVHINCON2 ---
Date of service: Jan 22, [address] Gimenez Reason for Consultation Subarachnoid hemorrhage History of Present Illness She was transferred I have never care 34-year-old female brought in by ambulance from home. The friend who has been posting this patient recently called 911 because the patient has decreased appetite in the last two days and have some generalized weakness. No other complaints. Patient had one episode of brown diarrhea this morning which has resolved. Patient denies any other symptoms. Patient does not take any medicine. Pre-hospital course vital signs per EMS were stable. Patient denies any history of liver disease however she has bilateral icterus UDS, 01/19/2025: Negative Plasma alcohol, 01/20/2025: <3 ABG, 01/21/2025: Respiratory acidosis Urinalysis, 01/19/2025: WBC: 5, urine leukocyte esterase: Negative WBC/HB/PLT/MCV, 01/22/2025: 8/9.2/50/93.4 CD4, 01/21/2025: 28.8 PT/INR/PTT, 01/21/2025: 13/1.25/34.9 Na, 01/19/2025: 146, 01/20/2025: 147, 01/21 25: 148 BUN/CR, 01/22/2025: 19/1.47 TBI/AST/ALT/AP, 01/19/2025: 12.12/999/895/2300, 01/22/2025: 10.4/110/526/2300 Hepatitis panel, 01/20/2025: Negative NH3, 01/19/2025: 40, 01/20/2025: 14 :37 Vitamin B12, 01/22/2025: 2908 TSH, 01/22/2025: 0.29 Vitamin-D, 02/08/2025: 17.1 CT head, 01/19/2025: No acute intracranial abnormality identified. Gliosis/old infarct in right insula and frontal lobe. CT head, 01/22/2025: Redemonstration of small area of hyperattenuation in the left lateral frontal lobe possibly representing small volume subarachnoid hemorrhage. Right frontal encephalomalacia. Right supraclinoid ICA and right MCA again noted to be dysplastic in appearance measuring 0.6 cm. Hypertension, dyslipidemia, stroke, asthma, seizure, HIV Pacemaker insertion He was tobacco smoke, but no history of alcohol or drug abuse Allergies: Coded Allergies: NO KNOWN ALLERGIES (Unverified , 04/22/24) Home Meds Reported Medications Atorvastatin Calcium (ATORVASTATIN CALCIUM) 40 Mg Tab, 1 TAB PO HS 01/20/25 Jbijplntrry-Ydsqddfutijrv-Txkk (Biktarvy 50-200-25 mg) 1 Tab Tab, 1 TAB PO DAILY 01/20/25 Discontinued Scripts Ibuprofen Micronized (Ibuprofen) 800 Mg Tab, 800 MG PO TID, #40 TAB Prov:DOTTY TRANP 11/16/24 Cephalexin Monohydrate (Cephalexin) 500 Mg Cap, 1 CAP PO QID, #40 CAP Prov:DOTTY TRANP 11/16/24 Prednisone (Prednisone) 20 Mg Tab, 60 MG PO DAILY, #18 MG Prov:BERNARDO DANGELO 11/12/24 Amoxicillin Trihydrate (Amoxicillin) 875 Mg Tab, 1 TAB PO BID, #20 TAB Prov:BERNARDO DANGELO 11/12/24 Current Medications Current Medications Medications (Trade) Dose Ordered Sig/Dorota Route PRN Reason Start Time Stop Time Status Last Admin Meropenem 50 ml @ 17 mls/hr Q12HR IV 01/21/25 22:00 01/22/25 15:55 DC 01/22/25 13:44 Pantoprazole Sodium (Protonix) 40 mg BID IV 01/21/25 22:00 01/22/25 10:44 Albuterol (Ventolin Medneb) 2.5 mg Q4HWA NEB 01/21/25 22:00 01/22/25 18:28 Ipratropium [place] (Atrovent Medneb) 0.5 mg Q4HWA NEB 01/21/25 22:00 01/22/25 18:28 Lorazepam (Ativan Inj) 1 mg Q5MINP PRN IV SEIZURES 01/21/25 22:45 Levetiracetam 100 ml @ 400 mls/hr BID IV 01/22/25 10:00 01/22/25 00:25 DC Levetiracetam 100 ml @ 400 mls/hr BID IV 01/22/25 10:00 Cancel Potassium Chloride 50 ml @ 25 mls/hr Q2H IV 01/22/25 06:15 01/22/25 10:14 DC 01/22/25 07:46 Levetiracetam 750 mg/Sodium Chloride 107.5 ml @ 430 mls/hr Q12H IV 01/22/25 11:00 01/22/25 11:55 Meropenem 50 ml @ 17 mls/hr Q8HR IV 01/22/25 15:55 Vancomycin HCl 250 ml @ 250 mls/hr DAILY@1600 IV 01/23/25 16:00 Vital Signs Vital Signs Date Time Temp Pulse Resp B/P (MAP) Pulse Ox O2 Delivery O2 Flow Rate FiO2 01/22/25 20:00 80 18 172/117 (135) 99 01/22/25 19:15 97.6 97.6 01/22/25 18:30 Nasal Cannula* 2 28 Labs/Diagnostic Data Labs Test 01/22/25 11:08 01/22/25 07:55 01/22/25 06:54 01/22/25 03:30 Range/Units Platelet Count 71 L 140-450 10^3/uL Blood Gas Specimen Type Arterial Blood Gas Sample Site Left radial Blood Gas Patient Temperature 37.0 Arterial Blood Date Drawn [id number] Arterial Blood pH 7.353 7.350-7.450 Arterial Blood Partial Pressure CO2 44.4 32.0-45.0 mmHg Arterial Blood Partial Pressure O2 95.2 83.0-108.0 mmHg Arterial Blood HCO3 24.1 21.0-28.0 mmol/L Arterial Blood Oxygen Saturation 96.5 94.0-98.0 % Arterial Blood Base Excess -1.4 -2.0-3.0 mmol/L Arterial Blood Oxyhemoglobin 94.3 94.0-98.0 % Arterial Blood Carboxyhemoglobin 2.0 H 0.5-1.5 % Arterial Blood Methemoglobin 0.3 0.0-1.5 % Giorgio Test Yes Blood Gas Total Hemoglobin 9.40 L 12.0-16.0 g/dL Blood Gas Liter Flow 2.00 Blood Gas Modality Nasal cannula FiO2 % 28.0 White Blood Count 8.0 4.4-10.8 10^3/uL Red Blood Count 3.07 L 4.0-5.20 10^6/uL Hemoglobin 9.2 L 12.2-16.2 g/dL Hematocrit 28.7 L 36.0-46.0 % Mean Corpuscular Volume 93.4 80.0-100.0 fL Mean Corpuscular Hemoglobin 30.0 28.0-32.0 pg Mean Corpuscular Hemoglobin Concent 32.1 32.0-36.0 g/dL Red Cell Distribution Width 19.1 H 11.8-14.3 % Mean Platelet Volume 8.7 6.9-10.8 fL Neutrophils (%) (Auto) 37.0-80.0 % Lymphocytes (%) (Auto) 10.0-50.0 % Monocytes (%) (Auto) 0.0-12.0 % Basophils (%) (Auto) 0.0-2.0 % Neutrophils # (Auto) 1.6-8.6 10 ^3/uL Lymphocytes # (Auto) 0.4-5.4 10 ^3/uL Monocytes # (Auto) 0-1.3 10 ^3/uL Differential Total Cells Counted 100.0 100 Neutrophils % (Manual) 66 37.0-80.0 Band Neutrophils % (Manual) 1 Lymphocytes % (Manual) 26 10.0-50.0 Monocytes % (Manual) 3 0-12 Eosinophils % (Manual) 4 0-7 Basophils % (Manual) 0 0.0-2.0 Metamyelocytes % (manual) 0 Myelocytes % (Manual) 0 Promyelocytes % (Manual) 0 Blast Cells % (Manual) 0 Nucleated Red Blood Cells 3.0 % Reactive Lymphocytes 0 Platelet Estimate Decreased Stomatocytes Moderate Sodium Level 146 H 136-145 mmol/L Potassium Level 3.4 L 3.5-5.1 mmol/L Chloride Level 112 H 98-107 mmol/L Carbon Dioxide Level 26 20-31 mmol/L Anion Gap 8 5-15 Blood Urea Nitrogen 19 9-23 mg/dL Creatinine 1.47 H 0.550-1.02 mg/dL Glomerular Filtration Rate Calc 48 >90 mL/min BUN/Creatinine Ratio 12.9 10.0-20.0 Serum Glucose 93 74-106 mg/dL Lactic Acid Level 1.0 0.4-2.0 mmol/L Calcium Level 9.5 8.7-10.4 mg/dL Magnesium Level 1.6 1.6-2.6 mg/dL Total Bilirubin 10.4 H 0.2-1.0 mg/dL Aspartate Amino Transferase (AST) 810 H 13-40 U/L Alanine Aminotransferase (ALT) 526 H 7-40 U/L Alkaline Phosphatase > 2300 H 46-116 U/L Ammonia 37 H 11-32 umol/L Total Protein 6.6 5.7-8.2 g/dL Albumin 2.8 L 3.2-4.8 g/dL Vitamin B12 Level 2908 H 211-911 pg/mL Vitamin D 25-Hydroxy 17.1 L 30.0-100 ng/mL Thyroid Stimulating Hormone (TSH) 0.29 L 0.55-4.78 uIU/mL Random Vancomycin Level 6.9 5-10 ug/mL Test 01/21/25 23:04 01/21/25 20:17 01/21/25 18:45 01/21/25 10:46 Range/Units Prothrombin Time 13.0 H 9.3-11.8 sec Prothrombin Time INR 1.25 H 0.9-1.15 Activated Partial Thromboplast Time 34.9 H 24.5-34.5 SEC Creatine Kinase 50 34-145 U/L Blood Gas EPAP 5 Blood Gas IPAP 14 Blood Gas Critical Value Read Back Yes Blood Gas Notified Whom leonardo Badillo md Blood Gas Notified Time [id number] Blood Gas Notified By sahra Moura rrt Influenza Type A Antigen Negative Negative Influenza Type B Antigen Negative Negative SARS-CoV-2 Antigen (Rapid) Negative NEGATIVE Test 01/21/25 10:35 01/21/25 10:27 01/21/25 05:52 01/20/25 15:04 Range/Units Urine Creatinine 72.04 30.0-125.0 mg/dL Urine Sodium 126 40-220 mmol/L Eosinophils (%) (Auto) 2 Not Estab. % Absolute Neutrophils (auto) 10.8 H 1.4-7.0 x10E3/uL Absolute Lymphocytes (auto) 1.1 0.7-3.1 x10E3/uL Absolute Monocytes (auto) 0.7 0.1-0.9 x10E3/uL Absolute Eosinophils (auto) 0.3 0.0-0.4 x10E3/uL Absolute Basophils (auto) 0.1 0.0-0.2 x10E3/uL Immature Granulocytes % 1 Not Estab. % Immature Granulocytes # 0.2 H 0.0-0.1 x10E3/uL Immature Blood Cells . Reticulocyte Count (auto) 1.58 H 0.5-1.5 % Hematology Comments Note: . Percent CD4 Cells 28.8 L 30.8-58.5 % Absolute CD4 Count 317 L 359-1519 /uL T-Lymphocyte CD4/CD8 Ratio 0.52 L 0.92-3.72 Percent CD8 Cells 55.1 H 12.0-35.5 % Absolute CD8 Count 606 109-897 /uL Direct Bilirubin 8.5 H <0.3 mg/dL Lactate Dehydrogenase 545 H 120-246 U/L Beta HCG, Quantitative 0.2 L 1.5-4.2 mIU/mL Anti-Nuclear Antibody Screen Negative Negative Test 01/20/25 13:01 01/20/25 08:06 01/20/25 08:01 01/19/25 23:15 Range/Units POC Glucose 142 H 70-106 mg/dl Venous Blood pH 7.258 L 7.320-7.430 Venous Blood pCO2 at Patient Temp 59.1 *H 38.0-54.0 mmHg Venous Blood pO2 at Patient Temp 38.9 23.0-48.0 mmHg Venous Blood HCO3 25.8 22.0-29.0 mmol/L Venous Blood Base Excess -2.5 L -2.0-3.0 mmol/L Blood Gas Comments Troponin I High Sensitivity 70 *H </=34 ng/L Salicylates Level < 3.0 -30 mg/dL Acetaminophen Level 8.0 L 10.0-20.0 UG/ML Plasma/Serum Blood Alcohol < 3.0 <10 mg/dL Hepatitis A IgM Antibody Negative Hepatitis B Surface Antigen Negative Negative Hepatitis B Core IgM Antibody Negative Negative Hepatitis C Antibody Negative Negative Urine Color Dark-yellow Yellow Urine Clarity Turbid H Clear Urine pH 6.0 5.0-9.0 Urine Specific [place] 1.017 1.001-1.035 Urine Protein 1+ H Negative Urine Ketones Negative Negative Urine Blood 2+ H Negative /uL Urine Nitrite Negative Negative Urine Bilirubin 2+ H Negative Urine Urobilinogen Normal Negative mg/dL Urine Leukocyte Esterase Negative Negative /uL Urine RBC 97 0 - 4 /hpf Urine Microscopic WBC 5 0-5 /HPF Urine Squamous Epithelial Cells Few <5 /hpf Urine Calcium Oxalate Crystals Few None Seen Urine Bacteria Few H None Seen /hpf Urine Hyaline Casts Few 0 - 2 /lpf Urine Mucus Few None Seen Urine Glucose Normal Normal mg/dL Urine Test Negative Negative Urine Opiates Screen Neg NEGATIVE Urine Fentanyl Screen Neg NEGATIVE Urine Barbiturates Screen Neg NEGATIVE Urine Phencyclidine Screen Neg NEGATIVE Urine Amphetamines Screen Neg NEGATIVE Urine Benzodiazepines Screen Neg NEGATIVE Urine Cocaine Screen Neg NEGATIVE Urine Cannabinoids Screen Neg NEGATIVE Test 01/19/25 15:53 Range/Units Anisocytosis (manual) Slight B-Type Natriuretic Peptide 223.92 0-100 pg/mL Lipase 36 12-53 U/L Microbiology Date/Time Source Procedure Growth Status 01/21/25 10:35 Voided Urine Urine Culture - Preliminary Resulted 01/21/25 10:27 Blood Blood Culture - Preliminary NO GROWTH AFTER 24 HOURS OF INCUBATION. Resulted 01/20/25 13:37 Nose MRSA Screen - Final Complete Plan discussed with: Other KATE YOST MD Jan 22, 2025 20:43
[2025-01-22] MEDS ORDERED: PIPERACILLIN-TAZOB 3.375GM 100 ML IV SCH (22:30)
--- NOTE | 2025-01-22 23:44 | DVHPN2 ---
Consult Progress Note Date Seen: Jan 22, 2025 Subjective Patient reports: Other (off BP support and on room air , no open wounds , no seizure activity and following commands ) Objective vital signs Vital Sign Date Time Temp Pulse Resp B/P (MAP) Pulse Ox O2 Delivery O2 Flow Rate FiO2 01/22/25 20:15 89 21 108/80 (89) 97 01/22/25 20:00 Nasal Cannula* 2 28 01/22/25 19:15 97.6 97.6 Total Intake and Output 01/21/25 01/21/25 01/22/25 15:00 23:00 07:00 Intake Total 663.236 ml 728.868 ml 1218.566 ml Output Total 600 ml 250 ml 1050 ml Balance 63.236 ml 478.868 ml 168.566 ml medications Current Medications Medications Dose Ordered Sig/Dorota Route Start Time Stop Time Status Last Admin Dose Admin Octreotide Acetate 500 mcg/ Sodium Chloride 100 ml @ 10 mls/hr Q10H IV 01/20/25 06:00 01/22/25 11:36 10 MLS/HR Ondansetron HCl 4 mg Q4HP PRN IV 01/20/25 12:00 01/20/25 20:14 4 MG Nitroglycerin 0.4 mg Q5MINP PRN SL 01/20/25 12:00 Morphine Sulfate 2 mg Q30M PRN IV 01/20/25 12:00 Vancomycin HCl 0 ml @ 0 mls/hr UD IV 01/20/25 12:15 Cancel Vasopressin 20 units/Sodium Chloride 100 ml @ 9 mls/hr Q11H7M IV 01/20/25 15:45 01/22/25 00:36 9 MLS/HR Norepinephrine Bitartrate 32 mg/ Sodium Chloride 250 ml @ 0.938 mls/ hr Q24H IV 01/20/25 19:15 01/21/25 09:50 10.313 MLS/HR Doxycycline Hyclate 100 ml @ 50 mls/hr Q12H IV 01/21/25 10:30 01/22/25 10:44 50 MLS/HR Pantoprazole Sodium 40 mg BID IV 01/21/25 22:00 01/22/25 10:44 40 MG Albuterol 2.5 mg Q4HWA NEB 01/21/25 22:00 01/22/25 18:28 2.5 MG Ipratropium [place] 0.5 mg Q4HWA NEB 01/21/25 22:00 01/22/25 18:28 0.5 MG Lorazepam 1 mg Q5MINP PRN IV 01/21/25 22:45 Levetiracetam 100 ml @ 400 mls/hr BID IV 01/22/25 10:00 Cancel Levetiracetam 750 mg/Sodium Chloride 107.5 ml @ 430 mls/hr Q12H IV 01/22/25 11:00 01/22/25 11:55 430 MLS/HR Vancomycin HCl 250 ml @ 250 mls/hr DAILY@1600 IV 01/23/25 16:00 Cancel Piperacillin Sod/ Tazobactam Sod 100 ml @ 25 mls/hr Q8HR IV 01/22/25 22:30 Physical Exam: - General: Lethargic, appears ill. - Neck: Supple. No masses. - HEENT: Pupils equal, round, and reactive to light (PERRL). Scleral icterus present. Moist mucous membranes. - Heart: Regular rhythm, normal rate. No murmurs. No lower extremity edema. - Lungs: Normal respiratory effort. Clear to auscultation bilaterally. No wheezes or crackles. - Abdomen: Distended. Tenderness in the right upper quadrant. No masses or hernias. - Musculoskeletal: Left-sided weakness. Normal strength and tone in the right limbs. - Skin: Jaundiced skin. Warm and dry. No rashes. - Neurological: Alert but disoriented to time and situation. Positive asterixis. Chronic speech impairment noted. Extraocular movements intact. Sensation intact to soft touch. - Psychiatric: Appears confused. Affect is flat. laboratory and microbiology Laboratory Tests 01/22/25 07:55 01/22/25 03:30 Test 01/22/25 03:30 Range/Units Serum Glucose 93 74-106 mg/dL Problem List/Assessment/Plan Problems(with codes): (1) Retained suture (2) Chronic leg pain (3) Sepsis (4) Liver failure (5) Heat exhaustion (6) Acute sinusitis (7) Elevated LFTs (8) Pneumonia (9) Hypotension (10) Hyperammonemia (11) Thrombocytopenia Problem List/Assessment/Plan ASSESSMENT AND PLAN: ID Problem List: - Altered mental status - Acute liver failure - Conjugated hyperbilirubinemia - Elevated liver enzymes - Possible hepatitis - History of polysubstance abuse - History of homelessness - Sepsis - Possible septic shock - Acute hypoxic respiratory failure - Pneumonia - Acute kidney injury (RAJENDRA) HIV - Chronic left-sided weakness - History of stroke Assessment This is a 34 y.o. female with a past medical history of HIV infection, stroke with resultant left-sided weakness and chronic speech impairment, pacemaker placement, lower extremity weakness, asthma, hyperlipidemia, and former methamphetamine abuse, who presents with generalized weakness, altered mental status, and signs of acute liver failure. The patient has been homeless and staying with a friend. Her friend noticed she was becoming weak, lethargic, and not drinking well, worsening over the last several days. She is now admitted with poor mentation, is unclear why she is in the hospital, and is disoriented to the month. On admission, she was found to have hypotension, hypothermia (temperature 93F), hyperbilirubinemia (total bilirubin 12 mg/dL, direct bilirubin 8.5 mg/dL), significantly elevated liver enzymes (AST >1000 U/L, ALT 875 U/L, alkaline phosphatase >2300 U/L), and transaminitis. She is jaundiced with scleral icterus and exhibits positive asterixis. She also reports short-term memory loss and left-sided weakness. Physical examination reveals abdominal distension and tenderness in the right upper quadrant. Laboratory studies revealed WBC 10.6 x10^3/L, hemoglobin 12.5 g/dL, platelet count 85 x10^3/L (thrombocytopenia), sodium 145 mmol/L, BUN 15 mg/dL, creatinine 1.49 mg/dL (RAJENDRA), lactic acid 1.2 mmol/L, pro-BNP 223.92 pg/mL, lipase 36 U/L, and acetaminophen level 8 g/mL. Salicylate and alcohol levels were negative. Imaging studies include: - CT Abdomen/Pelvis: No discrete hepatic lesions or biliary ductal dilatation on non-contrast exam. Small patchy airspace opacities in the superior aspects of the bilateral lower lobes, correlating with atypical infection. - Chest X-ray: Clear lungs, no cardiomegaly. - Head CT: No acute intracranial process; old infarct in the right insula and frontal lobe. - Ultrasound Abdomen: Nonspecific gallbladder wall thickening (0.5 cm) with no evidence of cholelithiasis or acute cholecystitis. - CT Chest: Right upper and bilateral lower lobe consolidations with air bronchograms concerning for infectious/inflammatory etiology; prominent mediastinal nodes favoring reactive process. The patient reports lifelong HIV infection and is on Biktarvy at home, stating she is compliant. Recent labs (April) showed CD4 count of 198 cells/mm with a CD4 percentage of 24.7% and a viral load of 270 copies/mL. She has a history of syphilis with an RPR of 1:2 recently; treatment history is unclear. 01/21: whitecount is going up , Dayron agosto is down trending , on 2 liters nasal canula 01/22: patient denies taking any new medication , has been taking Bictarvy as supposed to and not missing any doses , took a Tylenol and states that shes been out of Kepra of a while and had seizures prior which was the reason patient was taking kepra. CT head imaging shows demonstration of small area of hyper attenuation in the left lateral frontal lobe possibly representing small volume subarachnoid hemorrhage , right frontal encephalo [place] , right supraclinoid ICA and right MCA is noted to be plastic appearing . Chest x ray shows right airspace disease in the lower lung field , likely pneumonia and has increased since prior exam , MRCP shows gallbladder is mildly distended with mild pericholecystic edema , no biliary delectation or secondary signs of cholecystitis , multifocal bilateral lower airspace disease Plan: - Infectious Disease Management: - Continue doxycycline - STOP meropenem , switch to Zosyn - STOP Vancomycin - Recommend sputum culture, blood cultures, and urine culture; monitor results. - No need to initiate additional antiretroviral therapy at this time. - Hepatology: - Hold Biktarvy in the setting of acute liver failure. - Consult Gastroenterology for evaluation and management of acute liver failure. - Evaluate for acetaminophen toxicity (acetaminophen level of 8 g/mL). - Agree with MRCP to further assess etiology of conjugated hyperbilirubinemia. - Consider workup for rickettsial illness if no alternative etiology is found. - Critical Care: - Maintain MAPs above 65 mmHg with levophed (norepinephrine) and vasopressin. - Defer management of acute GI bleed, anemia, and thrombocytopenia to GI team. - Continue BiPAP therapy to maintain O2 saturations above 90-95%. - Neurology: - defer seizure management and management of subdural hematoma to neurology team - Monitor neurological status; patient exhibits short-term memory loss and confusion. - Additional Considerations: - Monitor renal function due to RAJENDRA. - Address social determinants of health, including homelessness. Isolation Precautions: Standard Authorized and Performed by: Emmy Guadalupe Total critical care time: Approximately 76 minutes Due to a high probability of clinically significant, life threatening deterioration, the patient required my highest level of preparedness to intervene emergently and I personally spent this critical care time directly and personally managing the patient. This critical care time included obtaining a history; examining the patient; pulse oximetry; ordering and review of studies; arranging urgent treatment with development of a management plan; evaluation of patient's response to treatment; frequent reassessment; and, discussions with other providers. This critical care time was performed to assess and manage the high probability of imminent, life-threatening deterioration that could result in multi-organ failure. It was exclusive of separately billable procedures and treating other patients and teaching time. Plan discussed with: EMMY Hector MD Jan 22, 2025 23:44
--- NOTE | 2025-01-23 14:48 | DVHSR ---
APPROVED REPORT EXAM: Two-dimensional and M-mode echocardiogram with Doppler and color Doppler. Blood Pressure: 117/71 mmHg INDICATION Hypotension RISK FACTORS Height: 63, Weight: 180 DIMENSIONS LVDd4.3 (3.8-5.7cm)LA (2D)3.8 (1.9-4.0cm)Aortic Root3.4 (2.0-3.7cm) LVDs3.1 (2.5-4.0cm)LA (MM) (1.9-4.0cm)Aortic Cusp Exc2.0 (1.5-2.0cm) EF (%) 55.0 (55-70%)Rt. Atrium4.4 (1.9-4.0cm)Asc. Aorta cm IVSd1.0 (0.7-1.1cm)RV (D) (1.8-2.4cm) PWd1.1 (0.7-1.1cm) Mitral Valve MitralMitral Stenosis E wave0.80m/sMV Mean GR.1mmHg A wave0.42m/sMV Peak GR.90mmHg E/A ratio1.92D MVAcm2 DECEL [id number] 1/2 [place] Aortic Valve Aortic ValveAortic Stenosis LVOT Diameter1.9 (1.8-2.4cm)Doppler AVAcm2 Pulmonic Valve V20.84m/s Tricuspid Valve TR Velocity1.93m/s [id number] Conclusion Technically good study. Sinus rhythm. Right atrial enlargement. Valves are normal. EF of 60% with normal RV function. Mild TR. No pericardial effusion masses or vegetations discernible.
[2025-01-23] MEDS ORDERED: VANCOMYCIN 1GM/250ML KIT 250 ML IV SCH (16:00)
== END 2025-01-22 20:40 | disposition short-term general hospital (02) | DRG 720 ==
LOC: EDBD 15:15 → ER 15:15 → OVERFLOW 01-20 11:46 → ICU WEST 01-22 02:58
PROVIDERS: ADMIT Internal Medicine; ATTEND Internal Medicine
PROC: 06HY33Z Insertion of Infusion Device into Lower Vein, Percutaneous Approach (ICD-10-PCS; 2025-01-19)
PROC: 5A09357 Assistance with Respiratory Ventilation, Less than 24 Consecutive Hours, Continuous Positive Airway Pressure (ICD-10-PCS; principal; 2025-01-21)
PROC: 30233R1 Transfusion of Nonautologous Platelets into Peripheral Vein, Percutaneous Approach (ICD-10-PCS; 2025-01-22)
DX: A41.59 Other Gram-negative sepsis (principal); J96.01 Acute respiratory failure with hypoxia; I60.9 Nontraumatic subarachnoid hemorrhage, unspecified; K72.00 Acute and subacute hepatic failure without coma; N17.0 Acute kidney failure with tubular necrosis; D68.9 Coagulation defect, unspecified; J15.69 Pneumonia due to other Gram-negative bacteria; E87.29 Other acidosis; D69.6 Thrombocytopenia, unspecified; R65.21 Severe sepsis with septic shock; I21.A1 Myocardial infarction type 2; N39.0 Urinary tract infection, site not specified; J15.9 Unspecified bacterial pneumonia; D64.9 Anemia, unspecified; K44.9 Diaphragmatic hernia without obstruction or gangrene; E66.9 Obesity, unspecified; G40.909 Epilepsy, unspecified, not intractable, without status epilepticus; J45.909 Unspecified asthma, uncomplicated; I10 Essential (primary) hypertension; E78.5 Hyperlipidemia, unspecified; R74.01 Elevation of levels of liver transaminase levels; Z79.891 Long term (current) use of opiate analgesic; Z87.891 Personal history of nicotine dependence; I69.354 Hemiplegia and hemiparesis following cerebral infarction affecting left non-dominant side; Z95.0 Presence of cardiac pacemaker; Z59.01 Sheltered homelessness; Z79.2 Long term (current) use of antibiotics; Z79.899 Other long term (current) drug therapy; Z68.32 Body mass index [BMI] 32.0-32.9, adult
CPT/HCPCS: 36415; 36556; 36600; 70450; 70470; 71045; 71250; 74176; 74181; 76705; 80053; 80074; 80202; 80307; 80320; 80329; 81001; 81025; 82140; 82248; 82306; 82550; 82570; 82607; 82805; 82962; 83605; 83615; 83690; 83735; 83880; 84300; 84443; 84484; 84702; 85007; 85027; 85045; 85049; 85610; 85730; 86038; 86360; 86850; 86900; 86901; 87040; 87081; 87086; 87426; 87536; 87804; 92610; 93005; 93306; 93970; 94640; 94660; 96365; 96375; 99291; 99292; G0378; J0692; J1885; J2185; J2405; J2470; J7060